=== PATIENT | female | born 1935 | race Caucasian/White ===

== ENCOUNTER 2017-05-12 08:08 | Inpatient (IN) | payer MEDICARE, BC ==
[2017-05-12] MEDS ORDERED: Neostigmine Methylsulfate 1 MG/ML 5 ML Syringe ONE (08:17)
[2017-05-12] MEDS ORDERED: Propofol 200 MG/20 ML SDV ONE (08:17)
[2017-05-12] MEDS ORDERED: Dexamethasone 4 MG/ML SDV ONE (08:17)
[2017-05-12] MEDS ORDERED: Succinylcholine 200 MG/10 ML MDV ONE (08:17)
[2017-05-12] MEDS ORDERED: Ondansetron 4 MG/2 ML SDV ONE (08:17)
[2017-05-12] MEDS ORDERED: Glycopyrrolate 0.2 MG/ML 5 ML MDV ONE (08:17)
[2017-05-12] MEDS ORDERED: Rocuronium 50 MG/5 ML Vial ONE (08:17)
[2017-05-12] MEDS ORDERED: Scopolamine 1.5 MG Transdermal Patch TRDERM SCH (08:45)
[2017-05-12] MEDS ORDERED: Gabapentin 300 MG Cap PO ONE (08:45)
[2017-05-12] MEDS ORDERED: Povidone-Iodine 10% Soln 118.25 ML Bottle ONE (08:53)
[2017-05-12] MEDS ORDERED: Thrombin (Bovine) 5,000 Unit Kit ONE (08:53)
[2017-05-12] MEDS ORDERED: Lactated Ringers 1,000 ML IV SCH (09:15)
[2017-05-12] MEDS ORDERED: ceFAZolin 1 GM in Premix Bag 1 BAG IV ONE (10:15)
[2017-05-12] MEDS ORDERED: Ropivacaine 49.25 ML, Ketorolac 30 MG, EPINEPHrine 0.5 MG, cloNIDine 80 MCG, Sodium Chl... INJECT ONE ×5 (10:30)
[2017-05-12] MEDS ORDERED: Ketamine 500 MG/5 ML MDV IV SCH (10:30)
[2017-05-12] MEDS: Tranexamic Acid 650 MG in Sodium Chloride 0.9% 50 ML IV SCH ×3 (10:38→17:33)
[2017-05-12] MEDS ORDERED: Gelatin Sponge,Absorbable Pwd 1 GM Pkt ONE (11:00)
[2017-05-12] MEDS ORDERED: Magnesium Hydroxide 400 MG/5 ML Susp 30 ML Cup PO PRN (12:22)
[2017-05-12] MEDS ORDERED: Zolpidem 5 MG Tab PO PRN (12:22)
[2017-05-12] MEDS ORDERED: Aluminum Hydroxide/Magnesium Hydroxide/Simethicone Susp 30 ML Cup PO PRN (12:22)
[2017-05-12] MEDS ORDERED: Naloxone 0.4 MG/ML SDV IVPUSH PRN (12:22)
[2017-05-12] MEDS ORDERED: Sodium Chloride 0.9% 10 ML Syringe FLUSH PRN (12:22)
[2017-05-12] MEDS ORDERED: Ondansetron 4 MG/2 ML SDV IVPUSH PRN (12:22)
[2017-05-12] MEDS ORDERED: HYDROmorphone 1 MG/ML Syringe IVPUSH PRN (12:22)
[2017-05-12] MEDS ORDERED: ceFAZolin 1 GM in Sodium Chloride 0.9% 50 ML IV SCH ×2 (12:30→13:45)
[2017-05-12] MEDS: VERIFY SCOPOLAMINE PATCH TOP SCH (13:20)
[2017-05-12] MEDS ORDERED: Lactated Ringers 500 ML IV SCH ×2 (16:15→18:30)
--- NOTE | 2017-05-12 17:19 | PCM.CONS ---
H&P History of Present Illness - General Date of Service: 05/12/17 Admit Problem/Dx: Source of Information: Patient, RN Notes Reviewed History Limitations: Reports: Altered Mental Status (Lethargic following anesthesia with underlying dementia) - History of Present Illness Initial Comments - Free Text/Narative: Ms. Bauer is an 81-year-old woman who is status post lumbar spinal surgery done earlier today by Dr. Tim Zapata. I'm asked to see her at this time for a hospitalist consult and assistance with medical management during the postoperative period. She has been somewhat lethargic since surgery likely as a result of the anesthesia. She also has a history of underlying dementia. She did experience some nausea vomiting immediately following surgery but this has resolved since she received IV Zofran. Vital signs have been stable and she has been afebrile thus far. Currently denies any symptoms of chest pain or pressure or shortness of breath. She reports that her pain control is good on current therapy. - Related Data Allergies/Adverse Reactions: Allergies Allergy/AdvReac Type Severity Reaction Status Date / Time No Known Allergies Allergy Verified 05/12/17 09:05 Home Medications: Home Meds Amiodarone HCl [Amiodarone HCl] 200 mg PO DAILY 04/02/17 [History] Past Medical History HEENT History: Reports: Cataract, Impaired Vision Cardiovascular History: Reports: Arrhythmia, High Cholesterol, VT, Pacemaker, Stents Respiratory History: Reports: COPD, Sleep Apnea, Other (See Below) Other Respiratory History: uses home O2 at night Gastrointestinal History: Reports: Cholelithiasis Genitourinary History: Reports: Urinary Incontinence 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: Musculoskeletal History: Reports: Back Pain, Chronic, Other (See Below) Other Musculoskeletal History: left knee pain , unilateral primary osteoarthritis, spinal stenosis lumbar region Endocrine/Metabolic History: Reports: Other (See Below) Other Endocrine/Metabolic History: hypoglycemia - Past Surgical History HEENT Surgical History: Reports: Cataract Surgery Cardiovascular Surgical History: Reports: Coronary Artery Stent GI Surgical History: Reports: Appendectomy, Cholecystectomy, Colonoscopy Female Surgical History: Reports: Hysterectomy, Salpingo-Oophorectomy Neurological Surgical History: Reports: Other (See Below) Other Neurological Surgeries/Procedures: back surgery x 2 Social & Family History - Tobacco Use Smoking Status *Q: Former Smoker Years of Tobacco use: 60 Used Tobacco, but Quit: Yes Month Tobacco Last Used: January Tobacco Use Comment: quit smoking in January 2017 - Caffeine Use Caffeine Use: Reports: Coffee - Recreational Drug Use Recreational Drug Use: No H&P Review of Systems - Review of Systems: Review Of Systems: Unable To Obtain General: Reports: ROS unobtainable (Dementia) Exam - Exam Exam: See Below - Vital Signs Vital Signs: Last Vital Signs Temp 96.3 F 05/12/17 15:30 Pulse 67 05/12/17 16:00 Resp 16 05/12/17 16:00 BP 117/66 05/12/17 16:00 Pulse Ox 100 05/12/17 16:00 Weight: 164 lb 11.2 oz - Exam Quality Assessment: DVT Prophylaxis General: Sedated, Lethargic Neck: Supple, Trachea Midline, +2 Carotid Pulse wo Bruit Lungs: Clear to Auscultation, Normal Respiratory Effort Cardiovascular: Regular Rate, Regular Rhythm, Normal S1, Normal S2. No: Systolic Murmur, Diastolic Murmur GI/Abdominal Exam: Normal Bowel Sounds, Soft, Non-Tender, No Distention Extremities: Normal Inspection, No Pedal Edema Skin: Warm, Dry, Intact - Patient Data Lab Results Last 24 hrs: Laboratory Results - last 24 hr 05/12/17 Range/Units 08:34 Blood Type O POSITIVE Gel Antibody Screen Negative Consult PN Assessment/Plan Procedures: Procedures CARDIOVASCULAR STRESS TEST (02/28/14) CHEST X-RAY 2VW FRONTAL&LATL (11/27/16) CONTRAST X-RAY OF KNEE JOINT (04/02/17) CT ABD & PELV 1/> REGNS (07/11/15) CT HEAD/BRAIN W/O DYE (10/17/14) CT LOWER EXTREMITY W/O DYE (04/02/17) CT LUMBAR SPINE W/O DYE (04/23/17) HT MUSCLE IMAGE SPECT MULT (02/28/14) MYELOGRAPHY L-S SPINE (04/23/17) NJX INTERLAMINAR LMBR/SAC (05/05/17) X-RAY EXAM KNEE 4 OR MORE (04/12/17) X-RAY EXAM L-2 SPINE 4/>VWS (04/12/17) X-RAY EXAM OF PELVIS (04/12/17) Problem List Initiated/Reviewed/Updated: Yes My Orders Last 24 Hours: My Active Orders 05/12/17 16:15 Lactated Ringers [Ringers, Lactated] 500 ml IV ASDIRECTED 05/12/17 21:00 Melatonin 9 mg PO BEDTIME 05/13/17 09:00 Amiodarone [Cordarone] 200 mg PO DAILY Plan: ASSESSMENT AND RECOMMENDATIONS STATUS POST LUMBAR SPINAL SURGERY -Postoperative cares per Dr. Zapata CORONARY ARTERY DISEASE-stable, denies symptoms of chest pain or pressure PAROXYSMAL ATRIAL FIBRILLATION -Continue current therapy with amiodarone DEMENTIA -Melatonin 9 mg by mouth daily at bedtime Requesting Provider: LUDWIG Date Consult Requested: 05/12/17 Reason for Consult: Postoperative medical management Patient History Reviewed: Yes
[2017-05-12] MEDS: ceFAZolin 1 GM in Premix Bag 1 BAG IV SCH (17:33)
[2017-05-12] MEDS: Melatonin 3 MG Tab PO SCH (21:28)
[2017-05-13] MEDS: ceFAZolin 1 GM in Premix Bag 1 BAG IV SCH ×2 (02:36→10:17)
[2017-05-13] MEDS: Acetaminophen/oxyCODONE 325-5 MG Tab PO PRN ×3 (07:53→21:16)
--- NOTE | 2017-05-13 08:30 | OR ---
DATE OF PROCEDURE: 05/12/2017 PREOPERATIVE DIAGNOSIS: Lumbar stenosis L2-3, L3-4, and L4-5. POSTOPERATIVE DIAGNOSIS: Lumbar stenosis L2-3, L3-4, and L4-5. PROCEDURE: Lumbar laminectomy L2-3, L3-4, and L4-5. GAS PLANT SPECIALIST: Kisha Skaggs, FUR DRESSING SUPERVISOR FLUID: Lactated Ringer solution. ESTIMATED BLOOD LOSS: 200 mL. COMPLICATIONS: None. SPECIMEN: None. DISCHARGE DISPOSITION: Stable to PACU. INDICATIONS FOR PROCEDURE: The patient is well known to me. She initially came in for some leg, knee pain, and then knee weakness and feeling like her knee was giving out on her. We really did not see a lot of arthritic changes in the left knee. The patient has a defibrillator, so we performed a CT myelogram, which showed the above-mentioned diagnosis. She had failed epidural steroid injection, was getting to be continually weaker and falling, where she had been very mobile previous to this. Risks and benefits of the procedure were explained to the patient. Informed consent was obtained. DETAILS OF PROCEDURE: The patient was seen preoperatively by myself and the Anesthesia Staff in the preoperative holding area where the operative site was marked. She was brought to the operative suite by the Anesthesia staff where general anesthesia was administered. She was placed into a Armen table. All extremities were found to be well padded. The eyes were not under any pressure. The patient's back was then prepped and draped in a sterile manner. Time-out was called identifying the correct patient, correct procedure, the correct site, and antibiotics had been given within appropriate period of time. The sterilely draped fluoroscopy unit was then brought into lateral position, and the L2 through L5 pedicles were marked on the lateral view. We then did a midline incision down to the fascia. Bleeding was controlled in the case with Bovie electrocautery, bipolar electrocautery, as well as a 5.0 Aquamantys unit. Cerebellars were used for initial retraction, Silva elevator and an ENT tip Bovie were then used for dissection over the spinous processes of L2 down to the L5 spinous process, carried down over the respective lamina out to the lateral margin of the facets. Any extraneous tissue was then cleared. I then brought in fluoroscopy to verify my levels. We then removed the inferior spinous process of L2 and the superior spinous process of L5 and then the remaining spinous processes of L3 and L4. I used a rongeur to remove as much of the lamina as possible and then used 3, 4, and 5 Kerrisons to remove the lamina over L3 and L4, the inferior aspect of L2, and superior aspect of L5. This was carried out to the level of the pedicles. The ligamentum flavum was carefully removed while protecting the dura and durotomy was not encountered during the procedure. Bleeding on the epidural space was controlled with Floseal and then tamped gently with a Ray-Riley. I did take my final films confirming with a long ball and a Pigeon #4 that my exposure was adequate and decompression was adequate. We then copiously irrigated with 2 L Betadine infused irrigation and placed a Floseal at the epidural space again, and then tamped it clear with a Ray-Riley and then placed Gelfoam powder in the wound. We then closed the deep fascia with #2 Vicryl in an interlocking fashion, #2 Vicryl in a running fashion, followed by deep subcu 0 sutures, followed by superficial 2-0 subcu sutures, followed by #2 Prolene mattress sutures, as well as 2-0 nylon mattress sutures, followed by a sterile dressing. The patient was then flipped into her hospital bed and then allowed to awaken from general anesthesia and taken to the PACU in stable condition. Gael Zapata DO /[id number]
[2017-05-13] MEDS: Amiodarone 200 MG Tab PO SCH (08:31)
[2017-05-13] MEDS: VERIFY SCOPOLAMINE PATCH TOP SCH (08:32)
--- NOTE | 2017-05-13 11:47 | PCM.CONSN ---
- General Info Date of Service: 05/13/17 Functional Status: Reports: Pain Controlled, Tolerating Diet - Review of Systems General: Reports: Weakness. Denies: Fever, Chills Cardiovascular: Reports: No Symptoms Gastrointestinal: Reports: No Symptoms Genitourinary: Reports: No Symptoms Musculoskeletal: Reports: Back Pain Systems Review Comment:: Ms. aBuer has been fairly stable since surgery yesterday, urine output has been somewhat low during the night but improved thus far today. Vital signs have been good and she has remained afebrile. - Patient Data Vitals - Most Recent: Last Vital Signs Temp 97.1 F 05/13/17 07:23 Pulse 67 05/13/17 07:23 Resp 16 05/13/17 07:23 BP 109/58 L 05/13/17 07:23 Pulse Ox 93 L 05/13/17 07:58 Weight - Most Recent: 164 lb 11.212 oz I&O - Last 24 Hours: Intake & Output 05/12/17 05/13/17 05/13/17 22:59 06:59 14:59 Intake Total 813 750 550 Output Total 175 300 Balance 638 750 250 Lab Results Last 24 Hours: Laboratory Results - last 24 hr 05/13/17 05/13/17 Range/Units 05:15 05:15 WBC 16.7 H (4.5-11.0) K/uL RBC 3.88 (3.30-5.50) M/uL Hgb 12.2 D (12.0-15.0) g/dL Hct 36.4 (36.0-48.0) % MCV 94 (80-98) fL MCH 31 (27-31) pg MCHC 34 (32-36) % Plt Count 208 (150-400) K/uL Neut % (Auto) 73 H (36-66) % Lymph % (Auto) 12 L (24-44) % [place] % (Auto) 15 H (2-6) % Eos % (Auto) 0 L (2-4) % Baso % (Auto) 0 (0-1) % Sodium 142 (140-148) mmol/L Potassium 4.9 (3.6-5.2) mmol/L Chloride 108 (100-108) mmol/L Carbon Dioxide 29 (21-32) mmol/L Anion Gap 5.3 (5.0-14.0) mmol/L BUN 21 H (7-18) mg/dL Creatinine 1.1 H (0.6-1.0) mg/dL Est Cr Clr Drug Dosing 36.09 mL/min Estimated GFR (MDRD) 48 L (>60) Glucose 111 H (74-106) mg/dL Calcium 8.1 L (8.5-10.1) mg/dL Med Orders - Current: Current Medications Al Hydroxide/Mg Hydroxide (Mag-Al Plus) 30 ml PO Q4H PRN PRN Reason: Indigestion Amiodarone HCl (Cordarone) 200 mg PO DAILY [facility] Last Admin: 05/13/17 08:31 Dose: 200 mg Diazepam (Valium) 5 mg IVPUSH Q6H PRN PRN Reason: Spasms Hydromorphone HCl (Dilaudid) 1 mg IVPUSH Q2H PRN PRN Reason: Pain Magnesium Hydroxide (Milk Of Magnesia) 30 ml PO BID PRN PRN Reason: Constipation Melatonin (Melatonin) 9 mg PO BEDTIME [facility] Last Admin: 05/12/17 21:28 Dose: 9 mg Verify Scopolamine (Patch) 0 each TOP DAILY [facility] Last Admin: 05/13/17 08:32 Dose: Not Given Ondansetron HCl (Zofran) 8 mg IVPUSH Q4H PRN PRN Reason: Nausea/Vomiting Last Admin: 05/12/17 13:19 Dose: 8 mg Oxycodone/Acetaminophen (Percocet 325-5 Mg) 2 tab PO Q4H PRN PRN Reason: Pain Last Admin: 05/13/17 07:53 Dose: 2 tab Scopolamine (Transderm-Scop) 1.5 mg TRDERM Q72H [facility] Stop: 05/15/17 06:45 Last Admin: 05/12/17 09:09 Dose: 1.5 mg Senna (Senna) 8.6 mg PO BID PRN PRN Reason: Constipation Sodium Chloride (Saline Flush) 10 ml FLUSH ASDIRECTED PRN PRN Reason: Keep Vein Open Zolpidem Tartrate (Ambien) 5 mg PO BEDTIME PRN PRN Reason: Sleep Discontinued Medications Ropivacaine 49.25 ml/Ketorolac Tromethamine 30 mg/Epinephrine HCl 0.5 mg/ Clonidine HCl 80 mcg/ Sodium Chloride 48.45 ml 0 ml INJECT ONETIME ONE Stop: 05/12/17 10:31 Last Admin: 05/12/17 10:45 Dose: 100 ml Dexamethasone (Dexamethasone) Confirm Administered Dose 4 mg .ROUTE .STK-MED ONE Stop: 05/12/17 08:18 Fentanyl Citrate (Fentanyl) Confirm Administered Dose 500 mcg .ROUTE .STK-MED ONE Stop: 05/12/17 08:18 Gabapentin (Neurontin) 300 mg PO ONETIME ONE Stop: 05/12/17 08:46 Last Admin: 05/12/17 09:09 Dose: 300 mg Gelatin (Gelfoam) 1 gm .ROUTE .STK-MED ONE Stop: 05/12/17 11:01 Glycopyrrolate (Robinul) Confirm Administered Dose 1 mg .ROUTE .STK-MED ONE Stop: 05/12/17 08:18 Lactated Ringer's (Ringers, Lactated) 1,000 mls @ 0 mls/hr IV ASDIRECTED [facility] PRN Reason: KVO Last Infusion: 05/12/17 16:10 Dose: Infused Cefazolin Sodium/Dextrose 1 gm (/ Premix) 50 mls @ 100 mls/hr IV ONETIME ONE Stop: 05/12/17 10:44 Last Admin: 05/12/17 10:15 Dose: 100 mls/hr Tranexamic Acid 650 mg/ Sodium (Chloride) 56.5 mls @ 226 mls/hr IV Q3H [facility] Stop: 05/12/17 13:44 Last Admin: 05/12/17 17:33 Dose: Not Given Cefazolin Sodium 1 gm/ Sodium (Chloride) 50 mls @ 100 mls/hr IV Q8H [facility] Stop: 05/13/17 04:59 Last Admin: 05/13/17 07:53 Dose: Not Given Cefazolin Sodium/Dextrose 1 gm (/ Premix) 50 mls @ 100 mls/hr IV Q8H [facility] Stop: 05/13/17 10:29 Last Admin: 05/13/17 10:17 Dose: 100 mls/hr Lactated Ringer's (Ringers, Lactated) 500 mls @ 250 mls/hr IV ASDIRECTED [facility] Last Admin: 05/12/17 16:11 Dose: 250 mls/hr Lactated Ringer's (Ringers, Lactated) 500 mls @ 250 mls/hr IV ASDIRECTED [facility] Stop: 05/12/17 20:29 Last Admin: 05/12/17 19:00 Dose: 250 mls/hr Ketamine HCl (Ketalar) 25 mg IV ASDIRECTED [facility] Naloxone HCl (Narcan) 0.2 mg IVPUSH ONETIME PRN PRN Reason: Oversedation Stop: 05/12/17 12:23 Neostigmine Methylsulfate (Neostigmine) Confirm Administered Dose 5 mg .ROUTE .STK-MED ONE Stop: 05/12/17 08:18 Ondansetron HCl (Zofran) Confirm Administered Dose 4 mg .ROUTE .STK-MED ONE Stop: 05/12/17 08:18 Povidone Iodine (Betadine 10% Soln) Confirm Administered Dose 1 ml .ROUTE .STK- MED ONE Stop: 05/12/17 08:54 Last Admin: 05/12/17 11:47 Dose: 30 ml Propofol (Diprivan 20 Ml) Confirm Administered Dose 200 mg .ROUTE .STK-MED ONE Stop: 05/12/17 08:18 Rocuronium [place] (Zemuron) Confirm Administered Dose 50 mg .ROUTE .STK-MED ONE Stop: 05/12/17 08:18 Succinylcholine Chloride (Quelicin) Confirm Administered Dose 200 mg .ROUTE .STK -MED ONE Stop: 05/12/17 08:18 Thrombin (Thrombin-Jmi) Confirm Administered Dose 15,000 unit .ROUTE .STK-MED ONE Stop: 05/12/17 08:54 Last Admin: 05/12/17 11:47 Dose: 5,000 unit - Exam General: Alert, Cooperative, No Acute Distress Lungs: Clear to Auscultation, Normal Respiratory Effort Cardiovascular: Regular Rate, Regular Rhythm, No Murmurs GI/Abdominal Exam: Normal Bowel Sounds, Soft, Non-Tender, No Distention Extremities: Normal Inspection, No Pedal Edema Skin: Warm, Dry, Intact Consult PN Assessment/Plan Procedures: Procedures CARDIOVASCULAR STRESS TEST (02/28/14) CHEST X-RAY 2VW FRONTAL&LATL (11/27/16) COMPLETE CBC AUTOMATED (05/10/17) COMPREHEN METABOLIC PANEL (05/10/17) CONTRAST X-RAY OF KNEE JOINT (04/02/17) CT ABD & PELV 1/> REGNS (07/11/15) CT HEAD/BRAIN W/O DYE (10/17/14) CT LOWER EXTREMITY W/O DYE (04/02/17) CT LUMBAR SPINE W/O DYE (04/23/17) ELECTROCARDIOGRAM TRACING (05/10/17) HT MUSCLE IMAGE SPECT MULT (02/28/14) MYELOGRAPHY L-S SPINE (04/23/17) NJX INTERLAMINAR LMBR/SAC (05/05/17) ROUTINE VENIPUNCTURE (05/10/17) URINALYSIS AUTO W/O SCOPE (05/10/17) X-RAY EXAM KNEE 4 OR MORE (05/10/17) X-RAY EXAM L-2 SPINE 4/>VWS (04/12/17) X-RAY EXAM OF PELVIS (04/12/17) Problem List Initiated/Reviewed/Updated: Yes My Orders Last 24 Hours: My Active Orders 05/12/17 21:00 Melatonin 9 mg PO BEDTIME 05/13/17 09:00 Amiodarone [Cordarone] 200 mg PO DAILY Plan: ASSESSMENT AND RECOMMENDATIONS STATUS POST LUMBAR SPINAL SURGERY-stable and doing well following surgery yesterday -Postoperative cares per Dr. Zapata CORONARY ARTERY DISEASE-stable, denies symptoms of chest pain or pressure PAROXYSMAL ATRIAL FIBRILLATION -Continue current therapy with amiodarone DEMENTIA-no evidence thus far of significant delirium or agitation -Melatonin 9 mg by mouth daily at bedtime
[2017-05-13] MEDS: Melatonin 3 MG Tab PO SCH (21:07)
[2017-05-13] MEDS ORDERED: Acetaminophen/oxyCODONE 325-5 MG Tab ONE (21:15)
--- NOTE | 2017-05-14 07:54 | PCM.PN ---
- General Info Date of Service: 05/13/17 Functional Status: Reports: Pain Controlled, Tolerating Diet, Ambulating, Urinating - Patient Data Vitals - Most Recent: Last Vital Signs Temp 36.8 C 05/14/17 07:40 Pulse 58 L 05/14/17 07:40 Resp 16 05/14/17 07:40 BP 118/59 L 05/14/17 07:40 Pulse Ox 93 L 05/14/17 07:40 Weight - Most Recent: 164 lb 11.212 oz I&O - Last 24 Hours: Intake & Output 05/13/17 05/14/17 05/14/17 22:59 06:59 14:59 Intake Total 3200 Output Total 1250 400 Balance 1950 -400 Lab Results Last 24 Hours: Laboratory Results - last 24 hr 05/14/17 05/14/17 Range/Units 04:42 04:42 WBC 12.9 H (4.5-11.0) K/uL RBC 3.83 (3.30-5.50) M/uL Hgb 12.1 (12.0-15.0) g/dL Hct 36.2 (36.0-48.0) % MCV 95 (80-98) fL MCH 32 H (27-31) pg MCHC 33 (32-36) % Plt Count 194 (150-400) K/uL Neut % (Auto) 61 (36-66) % Lymph % (Auto) 20 L (24-44) % [place] % (Auto) 17 H (2-6) % Eos % (Auto) 1 L (2-4) % Baso % (Auto) 0 (0-1) % Sodium 140 (140-148) mmol/L Potassium 4.2 (3.6-5.2) mmol/L Chloride 106 (100-108) mmol/L Carbon Dioxide 29 (21-32) mmol/L Anion Gap 5.3 (5.0-14.0) mmol/L BUN 21 H (7-18) mg/dL Creatinine 1.1 H (0.6-1.0) mg/dL Est Cr Clr Drug Dosing 36.03 mL/min Estimated GFR (MDRD) 48 L (>60) Glucose 108 H (74-106) mg/dL Calcium 7.9 L (8.5-10.1) mg/dL Med Orders - Current: Current Medications Al Hydroxide/Mg Hydroxide (Mag-Al Plus) 30 ml PO Q4H PRN PRN Reason: Indigestion Amiodarone HCl (Cordarone) 200 mg PO DAILY [facility] Last Admin: 05/13/17 08:31 Dose: 200 mg Diazepam (Valium) 5 mg IVPUSH Q6H PRN PRN Reason: Spasms Hydromorphone HCl (Dilaudid) 1 mg IVPUSH Q2H PRN PRN Reason: Pain Magnesium Hydroxide (Milk Of Magnesia) 30 ml PO BID PRN PRN Reason: Constipation Melatonin (Melatonin) 9 mg PO BEDTIME [facility] Last Admin: 05/13/17 21:07 Dose: 9 mg Verify Scopolamine (Patch) 0 each TOP DAILY [facility] Last Admin: 05/13/17 08:32 Dose: Not Given Ondansetron HCl (Zofran) 8 mg IVPUSH Q4H PRN PRN Reason: Nausea/Vomiting Last Admin: 05/12/17 13:19 Dose: 8 mg Oxycodone/Acetaminophen (Percocet 325-5 Mg) 2 tab PO Q4H PRN PRN Reason: Pain Last Admin: 05/13/17 21:16 Dose: 2 tab Scopolamine (Transderm-Scop) 1.5 mg TRDERM Q72H [facility] Stop: 05/15/17 06:45 Last Admin: 05/12/17 09:09 Dose: 1.5 mg Senna (Senna) 8.6 mg PO BID PRN PRN Reason: Constipation Sodium Chloride (Saline Flush) 10 ml FLUSH ASDIRECTED PRN PRN Reason: Keep Vein Open Zolpidem Tartrate (Ambien) 5 mg PO BEDTIME PRN PRN Reason: Sleep Discontinued Medications Ropivacaine 49.25 ml/Ketorolac Tromethamine 30 mg/Epinephrine HCl 0.5 mg/ Clonidine HCl 80 mcg/ Sodium Chloride 48.45 ml 0 ml INJECT ONETIME ONE Stop: 05/12/17 10:31 Last Admin: 05/12/17 10:45 Dose: 100 ml Dexamethasone (Dexamethasone) Confirm Administered Dose 4 mg .ROUTE .STK-MED ONE Stop: 05/12/17 08:18 Fentanyl Citrate (Fentanyl) Confirm Administered Dose 500 mcg .ROUTE .STK-MED ONE Stop: 05/12/17 08:18 Gabapentin (Neurontin) 300 mg PO ONETIME ONE Stop: 08/09/17 08:46 Last Admin: 05/12/17 09:09 Dose: 300 mg Gelatin (Gelfoam) 1 gm .ROUTE .STK-MED ONE Stop: 05/12/17 11:01 Glycopyrrolate (Robinul) Confirm Administered Dose 1 mg .ROUTE .STK-MED ONE Stop: 05/12/17 08:18 Lactated Ringer's (Ringers, Lactated) 1,000 mls @ 0 mls/hr IV ASDIRECTED [facility] PRN Reason: KVO Last Infusion: 05/12/17 16:10 Dose: Infused Cefazolin Sodium/Dextrose 1 gm (/ Premix) 50 mls @ 100 mls/hr IV ONETIME ONE Stop: 05/12/17 10:44 Last Admin: 05/12/17 10:15 Dose: 100 mls/hr Tranexamic Acid 650 mg/ Sodium (Chloride) 56.5 mls @ 226 mls/hr IV Q3H [facility] Stop: 05/12/17 13:44 Last Admin: 05/12/17 17:33 Dose: Not Given Cefazolin Sodium 1 gm/ Sodium (Chloride) 50 mls @ 100 mls/hr IV Q8H [facility] Stop: 05/13/17 04:59 Last Admin: 05/13/17 07:53 Dose: Not Given Cefazolin Sodium/Dextrose 1 gm (/ Premix) 50 mls @ 100 mls/hr IV Q8H [facility] Stop: 05/13/17 10:29 Last Admin: 05/13/17 10:17 Dose: 100 mls/hr Lactated Ringer's (Ringers, Lactated) 500 mls @ 250 mls/hr IV ASDIRECTED [facility] Last Admin: 05/12/17 16:11 Dose: 250 mls/hr Lactated Ringer's (Ringers, Lactated) 500 mls @ 250 mls/hr IV ASDIRECTED [facility] Stop: 05/12/17 20:29 Last Admin: 05/12/17 19:00 Dose: 250 mls/hr Ketamine HCl (Ketalar) 25 mg IV ASDIRECTED [facility] Naloxone HCl (Narcan) 0.2 mg IVPUSH ONETIME PRN PRN Reason: Oversedation Stop: 05/12/17 12:23 Neostigmine Methylsulfate (Neostigmine) Confirm Administered Dose 5 mg .ROUTE .STK-MED ONE Stop: 05/12/17 08:18 Ondansetron HCl (Zofran) Confirm Administered Dose 4 mg .ROUTE .STK-MED ONE Stop: 05/12/17 08:18 Oxycodone/Acetaminophen (Percocet 325-5 Mg) Confirm Administered Dose 2 tab .ROUTE .STK-MED ONE Stop: 05/13/17 21:16 Povidone Iodine (Betadine 10% Soln) Confirm Administered Dose 1 ml .ROUTE .STK- MED ONE Stop: 05/12/17 08:54 Last Admin: 05/12/17 11:47 Dose: 30 ml Propofol (Diprivan 20 Ml) Confirm Administered Dose 200 mg .ROUTE .STK-MED ONE Stop: 05/12/17 08:18 Rocuronium [place] (Zemuron) Confirm Administered Dose 50 mg .ROUTE .STK-MED ONE Stop: 05/12/17 08:18 Succinylcholine Chloride (Quelicin) Confirm Administered Dose 200 mg .ROUTE .STK -MED ONE Stop: 05/12/17 08:18 Thrombin (Thrombin-Jmi) Confirm Administered Dose 15,000 unit .ROUTE .STK-MED ONE Stop: 05/12/17 08:54 Last Admin: 05/12/17 11:47 Dose: 5,000 unit - Exam General: Alert, Oriented Back Exam: Normal Inspection Extremities: Normal Inspection Skin: Warm, Dry, Intact Wound/Incisions: Healing Well, Dressing Dry and Intact, No Drainage Neurological: No New Focal Deficit, Normal Gait, Strength Equal Bilateral, Reflexes Equal Bilateral - Problem List Review Problem List Initiated/Reviewed/Updated: Yes - My Orders Last 24 Hours: My Active Orders 05/15/17 05:15 BASIC METABOLIC PANEL,BMP [CHEM] DAILY CBC WITH AUTO DIFF [HEME] DAILY 05/16/17 05:15 BASIC METABOLIC PANEL,BMP [CHEM] DAILY CBC WITH AUTO DIFF [HEME] DAILY - Plan Plan:: Jessie is a 81 year old female who is status pod 1 of a lumbar laminectomy. She is doing well. She has refused PT until today. She status her pain is under control. Plan: At this time I want her bailey to be removed. She is to ambulate at least 3 times today. I changed her dressing. She is to continue with PT/OT and pain managment.
[2017-05-14] MEDS: Acetaminophen/oxyCODONE 325-5 MG Tab PO PRN ×3 (08:11→21:15)
[2017-05-14] MEDS: Amiodarone 200 MG Tab PO SCH (10:09)
[2017-05-14] MEDS: VERIFY SCOPOLAMINE PATCH TOP SCH (10:09)
[2017-05-14] MEDS: Sennosides 8.6 MG Tab PO PRN (10:13)
[2017-05-14] MEDS: Melatonin 3 MG Tab PO SCH (21:14)
[2017-05-15 07:15] VITALS: BP 139/68
[2017-05-15] MEDS: Acetaminophen/oxyCODONE 325-5 MG Tab PO PRN (07:23)
[2017-05-15] MEDS: Sennosides 8.6 MG Tab PO PRN (07:23)
--- NOTE | 2017-05-15 08:00 | PCM.DCSUM1 ---
Discharge Summary - Hospital Course Free Text/Narrative:: Jessie is a pleasant 81 year old female who is status pod 3 of a lumbar laminectomy. She is doing well. Pain is under control with oral pain medication. She is slightly unsteady with transfers. Dressing is clean, dry, and intact. - Discharge Data Discharge Date: 05/15/17 Discharge Disposition: DC/Tfer to SNF 03 Condition: Good - Patient Summary/Data Consults: Consultations 05/12/17 12:22 Consult to Physician [CONS] Routine Consulting Provider: Teddy Mccord Call Completed to Consulting Physician: Yes 05/12/17 12:28 OT Evaluation and Treatment [CONS] Routine Please Evaluate and Treat. OT Reason for Consult: Strengthening This query below is only for informational purposes and is not editable. PT Evaluation and Treatment [CONS] Routine Please Evaluate and Treat. PT Reason for Consult: Strengthening This query below is only for informational purposes and is not editable. - Patient Instructions Diet: Usual Diet as Tolerated Activity: Apply Ice, As Tolerated Driving: Do Not Drive Showering/Bathing: May Shower Wound/Incision Care: Keep Operative Site/Wound Site Clean and Dry, Change Dressing Daily, Do NOT Change Dressing Notify Provider of: Fever, Increased Pain, Swelling and Redness, Drainage, Nausea and/or Vomiting - Discharge Plan Prescriptions/Med Rec: Acetaminophen/oxyCODONE [Percocet 325-5 MG] 1 tab PO Q6HR PRN #90 tablet PRN Reason: Pain Home Medications: Home Meds Amiodarone HCl 200 mg PO DAILY 04/02/17 [History] Acetaminophen/oxyCODONE [Percocet 325-5 MG] 1 tab PO Q6HR PRN #90 tablet [Rx] Patient Handouts: Constipation, Adult, [id number], Lumbar Laminectomy and Anterior Cervical Fusion Referrals: Gael Zapata DO [Physician] - 05/27/17 10:15 am - Discharge Summary/Plan Comment DC Time >30 min.: Yes Discharge Summary/Plan Comment: Patient is to discharge to [facility] today. She is to follow up with us in 2 weeks. She is to have daily dressing changed after shower. Leave dressing on while showering and then remove after. - Patient Data Vitals - Most Recent: Last Vital Signs Temp 36.8 C 05/15/17 07:14 Pulse 56 L 05/15/17 07:14 Resp 18 05/15/17 07:14 BP 139/68 05/15/17 07:14 Pulse Ox 93 L 05/15/17 07:14 Weight - Most Recent: 164 lb 11.212 oz I&O - Last 24 hours: Intake & Output 05/14/17 05/15/17 05/15/17 22:59 06:59 14:59 Intake Total 240 Output Total 1950 450 Balance -1710 -450 Lab Results - Last 24 hrs: Laboratory Results - last 24 hr 05/15/17 05/15/17 Range/Units 05:04 05:04 WBC 11.2 H (4.5-11.0) K/uL RBC 3.93 (3.30-5.50) M/uL Hgb 12.3 (12.0-15.0) g/dL Hct 37.1 (36.0-48.0) % MCV 94 (80-98) fL MCH 31 (27-31) pg MCHC 33 (32-36) % Plt Count 188 (150-400) K/uL Neut % (Auto) 59 (36-66) % Lymph % (Auto) 21 L (24-44) % [place] % (Auto) 19 H (2-6) % Eos % (Auto) 2 (2-4) % Baso % (Auto) 0 (0-1) % Sodium 140 (140-148) mmol/L Potassium 4.1 (3.6-5.2) mmol/L Chloride 105 (100-108) mmol/L Carbon Dioxide 30 (21-32) mmol/L Anion Gap 4.6 L (5.0-14.0) mmol/L BUN 15 (7-18) mg/dL Creatinine 1.1 H (0.6-1.0) mg/dL Est Cr Clr Drug Dosing 36.03 mL/min Estimated GFR (MDRD) 48 L (>60) Glucose 89 (74-106) mg/dL Calcium 8.1 L (8.5-10.1) mg/dL Med Orders - Current: Current Medications Al Hydroxide/Mg Hydroxide (Mag-Al Plus) 30 ml PO Q4H PRN PRN Reason: Indigestion Amiodarone HCl (Cordarone) 200 mg PO DAILY NOEMI Last Admin: 05/14/17 10:09 Dose: 200 mg Diazepam (Valium) 5 mg IVPUSH Q6H PRN PRN Reason: Spasms Hydromorphone HCl (Dilaudid) 1 mg IVPUSH Q2H PRN PRN Reason: Pain Magnesium Hydroxide (Milk Of Magnesia) 30 ml PO BID PRN PRN Reason: Constipation Last Admin: 05/15/17 07:23 Dose: 30 ml Melatonin (Melatonin) 9 mg PO BEDTIME NOEMI Last Admin: 05/14/17 21:14 Dose: 9 mg Verify Scopolamine (Patch) 0 each TOP DAILY NOEMI Last Admin: 05/14/17 10:09 Dose: Not Given Ondansetron HCl (Zofran) 8 mg IVPUSH Q4H PRN PRN Reason: Nausea/Vomiting Last Admin: 05/12/17 13:19 Dose: 8 mg Oxycodone/Acetaminophen (Percocet 325-5 Mg) 2 tab PO Q4H PRN PRN Reason: Pain Last Admin: 05/15/17 07:23 Dose: 2 tab Senna (Senna) 8.6 mg PO BID PRN PRN Reason: Constipation Last Admin: 05/15/17 07:23 Dose: 8.6 mg Sodium Chloride (Saline Flush) 10 ml FLUSH ASDIRECTED PRN PRN Reason: Keep Vein Open Zolpidem Tartrate (Ambien) 5 mg PO BEDTIME PRN PRN Reason: Sleep Discontinued Medications Ropivacaine 49.25 ml/Ketorolac Tromethamine 30 mg/Epinephrine HCl 0.5 mg/ Clonidine HCl 80 mcg/ Sodium Chloride 48.45 ml 0 ml INJECT ONETIME ONE Stop: 05/12/17 10:31 Last Admin: 05/12/17 10:45 Dose: 100 ml Dexamethasone (Dexamethasone) Confirm Administered Dose 4 mg .ROUTE .STK-MED ONE Stop: 05/12/17 08:18 Fentanyl Citrate (Fentanyl) Confirm Administered Dose 500 mcg .ROUTE .STK-MED ONE Stop: 05/12/17 08:18 Gabapentin (Neurontin) 300 mg PO ONETIME ONE Stop: 05/12/17 08:46 Last Admin: 05/12/17 09:09 Dose: 300 mg Gelatin (Gelfoam) 1 gm .ROUTE .STK-MED ONE Stop: 05/12/17 11:01 Glycopyrrolate (Robinul) Confirm Administered Dose 1 mg .ROUTE .STK-MED ONE Stop: 05/12/17 08:18 Lactated Ringer's (Ringers, Lactated) 1,000 mls @ 0 mls/hr IV ASDIRECTED [facility] PRN Reason: KVO Last Infusion: 05/12/17 16:10 Dose: Infused Cefazolin Sodium/Dextrose 1 gm (/ Premix) 50 mls @ 100 mls/hr IV ONETIME ONE Stop: 05/12/17 10:44 Last Admin: 05/12/17 10:15 Dose: 100 mls/hr Tranexamic Acid 650 mg/ Sodium (Chloride) 56.5 mls @ 226 mls/hr IV Q3H [facility] Stop: 05/12/17 13:44 Last Admin: 05/12/17 17:33 Dose: Not Given Cefazolin Sodium 1 gm/ Sodium (Chloride) 50 mls @ 100 mls/hr IV Q8H [facility] Stop: 05/13/17 04:59 Last Admin: 05/13/17 07:53 Dose: Not Given Cefazolin Sodium/Dextrose 1 gm (/ Premix) 50 mls @ 100 mls/hr IV Q8H [facility] Stop: 05/13/17 10:29 Last Admin: 05/13/17 10:17 Dose: 100 mls/hr Lactated Ringer's (Ringers, Lactated) 500 mls @ 250 mls/hr IV ASDIRECTED [facility] Last Admin: 05/12/17 16:11 Dose: 250 mls/hr Lactated Ringer's (Ringers, Lactated) 500 mls @ 250 mls/hr IV ASDIRECTED [facility] Stop: 05/12/17 20:29 Last Admin: 05/12/17 19:00 Dose: 250 mls/hr Ketamine HCl (Ketalar) 25 mg IV ASDIRECTED [facility] Naloxone HCl (Narcan) 0.2 mg IVPUSH ONETIME PRN PRN Reason: Oversedation Stop: 05/12/17 12:23 Neostigmine Methylsulfate (Neostigmine) Confirm Administered Dose 5 mg .ROUTE .STK-MED ONE Stop: 05/12/17 08:18 Ondansetron HCl (Zofran) Confirm Administered Dose 4 mg .ROUTE .STK-MED ONE Stop: 05/12/17 08:18 Oxycodone/Acetaminophen (Percocet 325-5 Mg) Confirm Administered Dose 2 tab .ROUTE .STK-MED ONE Stop: 05/13/17 21:16 Last Admin: 05/14/17 08:07 Dose: Not Given Povidone Iodine (Betadine 10% Soln) Confirm Administered Dose 1 ml .ROUTE .STK- MED ONE Stop: 05/12/17 08:54 Last Admin: 05/12/17 11:47 Dose: 30 ml Propofol (Diprivan 20 Ml) Confirm Administered Dose 200 mg .ROUTE .STK-MED ONE Stop: 05/12/17 08:18 Rocuronium [place] (Zemuron) Confirm Administered Dose 50 mg .ROUTE .STK-MED ONE Stop: 05/12/17 08:18 Scopolamine (Transderm-Scop) 1.5 mg TRDERM Q72H [facility] Stop: 05/15/17 06:45 Last Admin: 05/12/17 09:09 Dose: 1.5 mg Succinylcholine Chloride (Quelicin) Confirm Administered Dose 200 mg .ROUTE .STK -MED ONE Stop: 05/12/17 08:18 Thrombin (Thrombin-Jmi) Confirm Administered Dose 15,000 unit .ROUTE .STK-MED ONE Stop: 05/12/17 08:54 Last Admin: 05/12/17 11:47 Dose: 5,000 unit *Q Meaningful Use (DIS) - VTE *Q VTE Criteria *Q: - Stroke *Q Stroke Criteria *Q: - AMI *Q AMI Criteria *Q:
[2017-05-15] MEDS: Amiodarone 200 MG Tab PO SCH (09:19)
[2017-05-15] MEDS: VERIFY SCOPOLAMINE PATCH TOP SCH (09:19)
--- NOTE | 2017-06-28 10:38 | PCM.PN ---
- General Info Date of Service: 05/14/17 Admission Dx/Problem (Free Text): Patient is doing very well. She is status postop day 2 of a lumbar laminectomy. Patient continues to work on PT OT for strictly. Pain is under control with oral pain medication. Patient does need extra cues with ambulating. Functional Status: Reports: Pain Controlled, Tolerating Diet, Ambulating, Urinating - Patient Data Vitals - Most Recent: Last Vital Signs Temp 36.8 C 05/15/17 07:14 Pulse 56 L 05/15/17 07:14 Resp 18 05/15/17 07:14 BP 139/68 05/15/17 07:14 Pulse Ox 93 L 05/15/17 07:14 Weight - Most Recent: 164 lb 11.212 oz Med Orders - Current: Current Medications Discontinued Medications Al Hydroxide/Mg Hydroxide (Mag-Al Plus) 30 ml PO Q4H PRN PRN Reason: Indigestion Amiodarone HCl (Cordarone) 200 mg PO DAILY NOEMI Last Admin: 05/15/17 09:19 Dose: 200 mg Ropivacaine 49.25 ml/Ketorolac Tromethamine 30 mg/Epinephrine HCl 0.5 mg/ Clonidine HCl 80 mcg/ Sodium Chloride 48.45 ml 0 ml INJECT ONETIME ONE Stop: 05/12/17 10:31 Last Admin: 05/12/17 10:45 Dose: 100 ml Dexamethasone (Dexamethasone) Confirm Administered Dose 4 mg .ROUTE .STK-MED ONE Stop: 05/12/17 08:18 Diazepam (Valium) 5 mg IVPUSH Q6H PRN PRN Reason: Spasms Fentanyl Citrate (Fentanyl) Confirm Administered Dose 500 mcg .ROUTE .STK-MED ONE Stop: 05/12/17 08:18 Gabapentin (Neurontin) 300 mg PO ONETIME ONE Stop: 05/12/17 08:46 Last Admin: 05/12/17 09:09 Dose: 300 mg Gelatin (Gelfoam) 1 gm .ROUTE .STK-MED ONE Stop: 05/12/17 11:01 Glycopyrrolate (Robinul) Confirm Administered Dose 1 mg .ROUTE .STK-MED ONE Stop: 05/12/17 08:18 Hydromorphone HCl (Dilaudid) 1 mg IVPUSH Q2H PRN PRN Reason: Pain Lactated Ringer's (Ringers, Lactated) 1,000 mls @ 0 mls/hr IV ASDIRECTED [facility] PRN Reason: KVO Last Infusion: 05/12/17 16:10 Dose: Infused Cefazolin Sodium/Dextrose 1 gm (/ Premix) 50 mls @ 100 mls/hr IV ONETIME ONE Stop: 05/12/17 10:44 Last Admin: 05/12/17 10:15 Dose: 100 mls/hr Tranexamic Acid 650 mg/ Sodium (Chloride) 56.5 mls @ 226 mls/hr IV Q3H [facility] Stop: 05/12/17 13:44 Last Admin: 05/12/17 17:33 Dose: Not Given Cefazolin Sodium 1 gm/ Sodium (Chloride) 50 mls @ 100 mls/hr IV Q8H [facility] Stop: 05/13/17 04:59 Last Admin: 05/13/17 07:53 Dose: Not Given Cefazolin Sodium/Dextrose 1 gm (/ Premix) 50 mls @ 100 mls/hr IV Q8H [facility] Stop: 05/13/17 10:29 Last Admin: 05/13/17 10:17 Dose: 100 mls/hr Lactated Ringer's (Ringers, Lactated) 500 mls @ 250 mls/hr IV ASDIRECTED [facility] Last Admin: 05/12/17 16:11 Dose: 250 mls/hr Lactated Ringer's (Ringers, Lactated) 500 mls @ 250 mls/hr IV ASDIRECTED [facility] Stop: 05/12/17 20:29 Last Admin: 05/12/17 19:00 Dose: 250 mls/hr Ketamine HCl (Ketalar) 25 mg IV ASDIRECTED [facility] Magnesium Hydroxide (Milk Of Magnesia) 30 ml PO BID PRN PRN Reason: Constipation Last Admin: 05/15/17 07:23 Dose: 30 ml Melatonin (Melatonin) 9 mg PO BEDTIME [facility] Last Admin: 05/14/17 21:14 Dose: 9 mg Naloxone HCl (Narcan) 0.2 mg IVPUSH ONETIME PRN PRN Reason: Oversedation Stop: 05/12/17 12:23 Neostigmine Methylsulfate (Neostigmine) Confirm Administered Dose 5 mg .ROUTE .STK-MED ONE Stop: 05/12/17 08:18 Verify Scopolamine (Patch) 0 each TOP DAILY [facility] Last Admin: 05/15/17 09:19 Dose: Not Given Ondansetron HCl (Zofran) Confirm Administered Dose 4 mg .ROUTE .STK-MED ONE Stop: 05/12/17 08:18 Ondansetron HCl (Zofran) 8 mg IVPUSH Q4H PRN PRN Reason: Nausea/Vomiting Last Admin: 05/12/17 13:19 Dose: 8 mg Oxycodone/Acetaminophen (Percocet 325-5 Mg) 2 tab PO Q4H PRN PRN Reason: Pain Last Admin: 05/15/17 07:23 Dose: 2 tab Oxycodone/Acetaminophen (Percocet 325-5 Mg) Confirm Administered Dose 2 tab .ROUTE .STK-MED ONE Stop: 05/13/17 21:16 Last Admin: 05/14/17 08:07 Dose: Not Given Povidone Iodine (Betadine 10% Soln) Confirm Administered Dose 1 ml .ROUTE .STK- MED ONE Stop: 05/12/17 08:54 Last Admin: 05/12/17 11:47 Dose: 30 ml Propofol (Diprivan 20 Ml) Confirm Administered Dose 200 mg .ROUTE .STK-MED ONE Stop: 05/12/17 08:18 Rocuronium [place] (Zemuron) Confirm Administered Dose 50 mg .ROUTE .STK-MED ONE Stop: 05/12/17 08:18 Scopolamine (Transderm-Scop) 1.5 mg TRDERM Q72H [facility] Stop: 05/15/17 06:45 Last Admin: 05/12/17 09:09 Dose: 1.5 mg Senna (Senna) 8.6 mg PO BID PRN PRN Reason: Constipation Last Admin: 05/15/17 07:23 Dose: 8.6 mg Sodium Chloride (Saline Flush) 10 ml FLUSH ASDIRECTED PRN PRN Reason: Keep Vein Open Succinylcholine Chloride (Quelicin) Confirm Administered Dose 200 mg .ROUTE .STK -MED ONE Stop: 05/12/17 08:18 Thrombin (Thrombin-Jmi) Confirm Administered Dose 15,000 unit .ROUTE .STK-MED ONE Stop: 05/12/17 08:54 Last Admin: 05/12/17 11:47 Dose: 5,000 unit Zolpidem Tartrate (Ambien) 5 mg PO BEDTIME PRN PRN Reason: Sleep - Exam General: Alert, Oriented Back Exam: Normal Inspection, Decreased Range of Motion (due to recent surgery) Extremities: Normal Inspection, Normal Range of Motion, Normal Capillary Refill Peripheral Pulses: 2+: Dorsalis Pedis (L), Dorsalis Pedis (R) Skin: Warm, Dry, Intact Wound/Incisions: Healing Well, Dressing Dry and Intact, No Drainage Neurological: No New Focal Deficit Psy/Mental Status: Alert - Problem List Review Problem List Initiated/Reviewed/Updated: Yes - Plan Plan:: Jessie is a 81 year old female who is status pod 2 of a lumbar laminectomy. She is doing well. Patient needs extra strengthening and cues with physical therapy so we'll continue to work on strengthening. I did have a long discussion with the patient regarding possible longterm placement and the benefits of it. Patient is in agreement with this we will continue to find a placement for her.
== END 2017-05-15 09:45 | DRG 520 ==
LOC: JP.SDS 08:08 → EDSTATUS 10:15 → JP.MS 12:28
PROVIDERS: ADMIT Orthopaedic Surgery; ATTEND Orthopaedic Surgery
PROC: 0ST20ZZ Resection of Lumbar Vertebral Disc, Open Approach (ICD-10-PCS; principal; 2017-05-12)
DX: M48.06 Spinal stenosis, lumbar region (principal); M17.12 Unilateral primary osteoarthritis, left knee; G89.29 Other chronic pain; F03.90 Unspecified dementia, unspecified severity, without behavioral disturbance, psychotic disturbance, mood disturbance, and anxiety; R11.2 Nausea with vomiting, unspecified; E78.00 Pure hypercholesterolemia, unspecified; I25.2 Old myocardial infarction; Z95.5 Presence of coronary angioplasty implant and graft; Z87.891 Personal history of nicotine dependence; I25.10 Atherosclerotic heart disease of native coronary artery without angina pectoris
CPT/HCPCS: 36415; 76001; 80048; 85025; 86850; 86900; 86901; 97110-GP; 97161-GP; 97165-GO; 97530-GP; 97535-GP; A9270-GY; J0171; J0330; J0690; J0735; J1100; J1885; J2405; J2704; J2710; J2795; J3010; J7050; J7120

== ENCOUNTER 2017-08-13 07:41 | Inpatient (IN) | payer MEDICARE, BC ==
[~2017-08-13 07:41] MED LIST: Povidone-Iodine 10% Soln 118.25 ML Bottle ONE; Thrombin (Bovine) 5,000 Unit Kit ONE
[2017-08-13] MEDS ORDERED: Gelatin Sponge,Absorbable Pwd 1 GM Pkt ONE (08:00)
[2017-08-13] MEDS ORDERED: Succinylcholine 200 MG/10 ML MDV ONE (08:18)
[2017-08-13] MEDS ORDERED: Ondansetron 4 MG/2 ML SDV ONE (08:18)
[2017-08-13] MEDS ORDERED: fentaNYL 250 MCG/5 ML SDV ONE ×2 (08:18→11:22)
[2017-08-13] MEDS ORDERED: Dexamethasone 4 MG/ML SDV ONE (08:18)
[2017-08-13] MEDS ORDERED: Rocuronium 50 MG/5 ML Vial ONE ×2 (08:18→12:47)
[2017-08-13] MEDS ORDERED: Propofol 200 MG/20 ML SDV ONE ×2 (08:18→11:03)
[2017-08-13] MEDS ORDERED: Scopolamine 1.5 MG Transdermal Patch TOP SCH (08:30)
[2017-08-13] MEDS ORDERED: Gabapentin 300 MG Cap PO ONE (08:30)
[2017-08-13] MEDS: Lactated Ringers 1,000 ML IV SCH ×2 (08:45→18:47)
[2017-08-13] MEDS ORDERED: Albuterol 0.083% 2.5 MG/3 ML Neb Soln NEB ONE (09:15)
[2017-08-13] MEDS ORDERED: Amiodarone 200 MG Tab PO ONE (09:30)
[2017-08-13] MEDS ORDERED: ceFAZolin 2 GM in Sodium Chloride 0.9% 100 ML IV ONE (10:00)
[2017-08-13] MEDS ORDERED: ceFAZolin 2 GM in Sodium Chloride 0.9% 50 ML IV ONE (10:00)
[2017-08-13] MEDS ORDERED: Ropivacaine 49.25 ML, Ketorolac 30 MG, EPINEPHrine 0.5 MG, cloNIDine 80 MCG, Sodium Chl... INJECT ONE ×5 (10:15)
[2017-08-13] MEDS ORDERED: Ketamine 500 MG/5 ML MDV IV ONE (10:15)
[2017-08-13] MEDS ORDERED: Aluminum Hydroxide/Magnesium Hydroxide/Simethicone Susp 30 ML Cup PO PRN (10:30)
[2017-08-13] MEDS ORDERED: Ondansetron 4 MG/2 ML SDV IVPUSH PRN (10:30)
[2017-08-13] MEDS ORDERED: Sodium Chloride 0.9% 10 ML Syringe FLUSH PRN (10:30)
[2017-08-13] MEDS ORDERED: Acetaminophen/oxyCODONE 325-5 MG Tab PO PRN (10:30)
[2017-08-13] MEDS ORDERED: ceFAZolin 1 GM in Sodium Chloride 0.9% 50 ML IV SCH (10:30)
[2017-08-13] MEDS ORDERED: Acetaminophen 1,000 MG in Premix Bag 1 BAG IV SCH (10:30)
[2017-08-13] MEDS ORDERED: HYDROmorphone 1 MG/ML Syringe IVPUSH PRN (10:30)
[2017-08-13] MEDS ORDERED: Zolpidem 5 MG Tab PO PRN (10:30)
[2017-08-13] MEDS ORDERED: Naloxone 0.4 MG/ML SDV IVPUSH PRN (10:30)
[2017-08-13] MEDS ORDERED: Ketorolac 60 MG/2 ML SDV IVPUSH SCH ×2 (10:30→16:00)
[2017-08-13] MEDS: Tranexamic Acid 730 MG in Sodium Chloride 0.9% 50 ML IV SCH ×2 (11:05→14:21)
[2017-08-13] MEDS ORDERED: Lactated Ringers 1,000 ML ONE (12:04)
[2017-08-13] MEDS ORDERED: Neostigmine Methylsulfate 1 MG/ML 5 ML Syringe ONE (13:06)
[2017-08-13] MEDS ORDERED: Glycopyrrolate 0.2 MG/ML 5 ML MDV ONE (13:06)
[2017-08-13] MEDS ORDERED: fentaNYL 100 MCG/2 ML SDV IVPUSH ONE ×2 (13:52→14:13)
--- NOTE | 2017-08-13 14:46 | OR ---
DATE OF PROCEDURE: 08/13/2017 PREOPERATIVE DIAGNOSES: 1. L4-5 stenosis. 2. L3-4 and L4-5 radiculopathy. 3. Foraminal stenosis at L3-4 and L4-5. 4. L4-5 spondylolisthesis. POSTOPERATIVE DIAGNOSES: 1. L4-5 stenosis. 2. L3-4 and L4-5 radiculopathy. 3. Foraminal stenosis at L3-4 and L4-5. 4. L4-5 spondylolisthesis. PROCEDURES: 1. Posterolateral fusion at L3-4 and L4-5. 2. Revision laminectomy at L4-5. 3. Segmental instrumentation at L3-4 and L4-5. 4. Use of intraoperative fluoroscopy. 5. Allograft from laminectomy and facetectomies used in for a posterolateral fusion bilaterally. 6. Right facetectomy at L3-4 and L4-5. ANESTHESIA: General endotracheal intubation. FLUID: Lactated Ringer solution. ESTIMATED BLOOD LOSS: 350 mL. COMPLICATIONS: None. SPECIMEN: None. DISCHARGE DISPOSITION: Stable to PACU. HISTORY AND INDICATIONS FOR THE PROCEDURE: The patient is well known to me. We had previously performed an L3-5 laminectomy for left-sided pain. She was having right-sided pain and clinical symptoms consistent with instability. Preoperative imaging confirmed the above-mentioned diagnosis. Risks and benefits of the procedure were explained to the patient and informed consent was obtained. DETAILS OF PROCEDURE: The patient was seen preoperatively by myself and the Anesthesia staff in the preop holding area, where the operative site was marked. She was brought to the operative suite by the Anesthesia staff, where general anesthesia was administered. A sterile Tim catheter was in place. Neuromonitoring leads were placed and normal throughout the procedure. The fluoroscopy unit was draped in a sterile manner. The patient was then flipped into a Armen table. All extremities were found to be well padded. The bed was flexed. The patient was then prepped and draped in a sterile manner. Time-out was called identifying the correct patient, the correct procedure, the correct site, and that antibiotics had been begun within appropriate period of time. I went through the same incision that I had made previously. Bleeding during the case was controlled with Bovie electrocautery, bipolar electrocautery, as well as an Aquamantys unit. I used cerebellar for retraction down to the deep fascia and then used a Silva and Bovie over the inferior aspect of the L2 spinous process as well as what was left of the L4 lamina and carried down over the facets bilaterally down to the transverse processes bilaterally. I then inserted four 65 mm Versa-Trac blade for retraction. I very carefully finished the laminectomy at L4- 5. Most of that had been removed. After that had been accomplished, I performed a full L4- 5 facetectomy on the right. At that point, I put in screws starting on the left and then the right. I put in 50 mm screws on the left, a 50-mm screw on the right at L3, and then 45 mm screws at L4 and L5. This was Drillsterus oroecoO system. I confirmed good placement. I did test the screws which all tested within normal limits. I then completed an L3-4 facetectomy on the right. I then irrigated with 3 L of Betadine infused irrigation and then placed my rods on with the set screws and then torqued them down to specification. I then decorticated the transverse processes bilaterally and then mixed my autograft from the laminectomy and facetectomies, which had been run through a [employer] bone mill with Signify allograft and then placed that along the posterolateral gutters, and then I also placed KINEX allograft in those gutters as well. I then applied Floseal and tamped any extra dry, then one and a half bags of Gelfoam powder, and then closed with #1 STRATAFIX, #2 STRATAFIX, and then 3-0 STRATAFIX followed by a sterile dressing. Neuromonitoring leads were normal throughout the case. The patient was then flipped into a supine position on the hospital bed and taken to the PACU in a stable condition. Gael Zapata DO /[id number]
--- NOTE | 2017-08-13 16:16 | PCM.PN ---
- General Info Date of Service: 08/13/17 Functional Status: Reports: Pain Controlled - Review of Systems General: Denies: Fever Musculoskeletal: Reports: Back Pain Systems Review Comment:: no acute events since surgery. Patient reports moderate to moderately severe lower back pain that radiates to the right hip. This is the same pain she was having before surgery but feels different with a sharp component following surgery. No paresthesias below her hip. She is able to wiggle her toes. No complaints of shortness of breath or chest pain. - Patient Data Vitals - Most Recent: Last Vital Signs Temp 36 C 08/13/17 15:20 Pulse 68 08/13/17 15:20 Resp 16 08/13/17 15:20 BP 124/65 08/13/17 15:20 Pulse Ox 97 08/13/17 15:20 Weight - Most Recent: 72.847 kg I&O - Last 24 Hours: Intake & Output 08/13/17 08/13/17 08/13/17 06:59 14:59 22:59 Intake Total 2200 Output Total 350 175 Balance 1850 -175 Med Orders - Current: Current Medications Al Hydroxide/Mg Hydroxide (Mag-Al Plus) 30 ml PO Q4H PRN PRN Reason: Indigestion Amiodarone HCl (Cordarone) 200 mg PO DAILY NOEMI Arformoterol Tartrate (Brovana) 15 mcg INH Q12H [facility] Diazepam (Valium.) 5 mg PO Q6H PRN PRN Reason: Spasms Hydromorphone HCl (Dilaudid) 1 mg IVPUSH Q2H PRN PRN Reason: Pain Lactated Ringer's (Ringers, Lactated) 1,000 mls @ 0 mls/hr IV ASDIRECTED [facility] PRN Reason: KVO Last Admin: 08/13/17 08:45 Dose: 25 mls/hr Cefazolin Sodium/Dextrose 1 gm (/ Premix) 50 mls @ 100 mls/hr IV Q8H [facility] Acetaminophen 1,000 mg/ Premix 100 mls @ 400 mls/hr IV Q6H [facility] Stop: 08/14/17 12:14 Ketorolac Tromethamine (Toradol) 30 mg IVPUSH Q8H [facility] Stop: 08/14/17 00:01 Magnesium Hydroxide (Milk Of Magnesia) 30 ml PO BID PRN PRN Reason: Constipation Naloxone HCl (Narcan) 0.2 mg IVPUSH ASDIRECTED PRN PRN Reason: Oversedation Stop: 08/13/17 23:00 Ondansetron HCl (Zofran) 8 mg IVPUSH Q4H PRN PRN Reason: Nausea/Vomiting Oxycodone/Acetaminophen (Percocet 325-5 Mg) 1 tab PO Q4H PRN PRN Reason: Pain Scopolamine (Transderm-Scop) 1.5 mg TOP Q72H [facility] Stop: 08/16/17 04:00 Last Admin: 08/13/17 08:42 Dose: 1.5 mg Senna (Senna) 8.6 mg PO BID PRN PRN Reason: Constipation Sodium Chloride (Saline Flush) 10 ml FLUSH ASDIRECTED PRN PRN Reason: Keep Vein Open Zolpidem Tartrate (Ambien) 5 mg PO BEDTIME PRN PRN Reason: Sleep Discontinued Medications Albuterol (Proventil Neb Soln) 2.5 mg NEB ONETIME ONE Stop: 08/13/17 09:16 Last Admin: 08/13/17 09:26 Dose: 2.5 mg Amiodarone HCl (Cordarone) 200 mg PO ONETIME ONE Stop: 08/13/17 09:31 Last Admin: 08/13/17 09:23 Dose: 200 mg Amiodarone HCl (Cordarone) 200 mg PO DAILY [facility] Ropivacaine 49.25 ml/Ketorolac Tromethamine 30 mg/Epinephrine HCl 0.5 mg/ Clonidine HCl 80 mcg/ Sodium Chloride 48.45 ml 0 ml INJECT ONETIME ONE Stop: 08/13/17 10:16 Last Admin: 08/13/17 13:20 Dose: 100 ml Dexamethasone (Dexamethasone) Confirm Administered Dose 4 mg .ROUTE .STK-MED ONE Stop: 08/13/17 08:19 Fentanyl (Sublimaze) Confirm Administered Dose 250 mcg .ROUTE .STK-MED ONE Stop: 08/13/17 08:19 Fentanyl (Sublimaze) Confirm Administered Dose 250 mcg .ROUTE .STK-MED ONE Stop: 08/13/17 11:23 Fentanyl (Sublimaze) 50 mcg IVPUSH ONETIME ONE Stop: 08/13/17 13:53 Last Admin: 08/13/17 14:06 Dose: 50 mcg Fentanyl (Sublimaze) 50 mcg IVPUSH ONETIME ONE Stop: 08/13/17 14:14 Last Admin: 08/13/17 14:20 Dose: 50 mcg Gabapentin (Neurontin) 300 mg PO ONETIME ONE Stop: 08/13/17 08:31 Last Admin: 08/13/17 08:41 Dose: 300 mg Glycopyrrolate (Robinul) Confirm Administered Dose 1 mg .ROUTE .STK-MED ONE Stop: 08/13/17 13:07 Tranexamic Acid 730 mg/ Sodium (Chloride) 57.3 mls @ 229.2 mls/hr IV Q3H [facility] Stop: 08/13/17 13:29 Last Admin: 08/13/17 14:21 Dose: 229.2 mls/hr Ketamine HCl 100 mg/ Sodium (Chloride) 100 mls @ 169.972 mls/hr IV ASDIRECTED [facility] Stop: 08/13/17 12:15 Cefazolin Sodium 2 gm/ Sodium (Chloride) 50 mls @ 100 mls/hr IV ONETIME ONE Stop: 08/13/17 10:29 Last Admin: 08/13/17 10:12 Dose: 100 mls/hr Acetaminophen 1,000 mg/ Premix 100 mls @ 400 mls/hr IV Q6H [facility] Stop: 08/14/17 04:44 Cefazolin Sodium 1 gm/ Sodium (Chloride) 50 mls @ 100 mls/hr IV Q8H [facility] Lactated Ringer's (Ringers, Lactated) Confirm Administered Dose 1,000 mls @ as directed .ROUTE .STK-MED ONE Stop: 08/13/17 12:05 Ketamine HCl (Ketalar) 28 mg IV ONETIME ONE Stop: 08/13/17 10:16 Ketorolac Tromethamine (Toradol) 30 mg IVPUSH Q8H [facility] Stop: 08/13/17 18:31 Ketorolac Tromethamine (Toradol) 30 mg IVPUSH Q8H [facility] Stop: 08/14/17 00:01 Neostigmine Methylsulfate (Neostigmine) Confirm Administered Dose 5 mg .ROUTE .STK-MED ONE Stop: 08/13/17 13:07 Ondansetron HCl (Zofran) Confirm Administered Dose 4 mg .ROUTE .STK-MED ONE Stop: 08/13/17 08:19 Povidone Iodine (Betadine 10% Soln) Confirm Administered Dose 1 ml .ROUTE .STK- MED ONE Stop: 08/13/17 07:01 Last Admin: 08/13/17 11:20 Dose: 30 ml Propofol (Diprivan 20 Ml) Confirm Administered Dose 400 mg .ROUTE .STK-MED ONE Stop: 08/13/17 08:19 Propofol (Diprivan 20 Ml) Confirm Administered Dose 400 mg .ROUTE .STK-MED ONE Stop: 08/13/17 11:04 Rocuronium [place] (Zemuron) Confirm Administered Dose 50 mg .ROUTE .STK-MED ONE Stop: 08/13/17 08:19 Rocuronium [place] (Zemuron) Confirm Administered Dose 50 mg .ROUTE .STK-MED ONE Stop: 08/13/17 12:48 Succinylcholine Chloride (Quelicin) Confirm Administered Dose 200 mg .ROUTE .STK -MED ONE Stop: 08/13/17 08:19 Thrombin (Thrombin-Jmi) Confirm Administered Dose 15,000 unit .ROUTE .STK-MED ONE Stop: 08/13/17 07:01 Last Admin: 08/13/17 11:19 Dose: 10,000 unit - Exam Quality Assessment: Supplemental Oxygen General: Alert, Oriented, Cooperative, No Acute Distress Neck: Supple Lungs: Clear to Auscultation, Normal Respiratory Effort Cardiovascular: Regular Rate, Regular Rhythm, No Murmurs GI/Abdominal Exam: No Distention Extremities: No Pedal Edema. No: Increased Warmth Skin: Warm, Dry Psy/Mental Status: Alert, Normal Affect - Problem List Review Problem List Initiated/Reviewed/Updated: Yes - Plan Plan:: ASSESSMENT AND PLAN - Spinal stenosis status post lumbar fusion, laminectomy and facetectomy L3/4 and L4/5 - moderately severe pain reported at this time but appears comfortable. vital signs stable since surgery. -Pain control and postoperative cares per surgical team Paroxysmal atrial fibrillation - has remained in sinus rhythm on amiodarone therapy. -Continue amiodarone COPD - stable at this time. -Continue home medications Eddie Andrews M.D.
[2017-08-13] MEDS: ceFAZolin 1 GM in Premix Bag 1 BAG IV SCH (16:23)
[2017-08-13] MEDS: Ketorolac 30 MG/ML SDV IVPUSH SCH (16:29)
[2017-08-13] MEDS: Acetaminophen 1,000 MG in Premix Bag 1 BAG IV SCH (18:42)
[2017-08-13] MEDS: Arformoterol 15 MCG/2 ML Neb Soln INH SCH (20:44)
[2017-08-14] MEDS: Acetaminophen 1,000 MG in Premix Bag 1 BAG IV SCH ×3 (00:41→13:06)
[2017-08-14] MEDS: ceFAZolin 1 GM in Premix Bag 1 BAG IV SCH ×3 (00:43→16:53)
[2017-08-14] MEDS: Ketorolac 30 MG/ML SDV IVPUSH SCH (00:44)
[2017-08-14] MEDS: Diazepam 5 MG Tab PO PRN ×3 (06:14→21:26)
[2017-08-14] MEDS: Arformoterol 15 MCG/2 ML Neb Soln INH SCH ×2 (08:18→21:26)
[2017-08-14] MEDS ORDERED: Amiodarone 200 MG Tab PO SCH (09:00)
--- NOTE | 2017-08-14 09:08 | PCM.PN ---
- General Info Functional Status: Reports: Pain Controlled - Review of Systems General: Reports: No Symptoms HEENT: Reports: No Symptoms Pulmonary: Reports: No Symptoms Cardiovascular: Reports: No Symptoms Gastrointestinal: Reports: No Symptoms Genitourinary: Reports: No Symptoms Musculoskeletal: Reports: Back Pain, Leg Pain Skin: Reports: No Symptoms Neurological: Reports: Difficulty Walking, Weakness, Gait Disturbance Psychiatric: Reports: No Symptoms - Patient Data Vitals - Most Recent: Last Vital Signs Temp 97.3 F 08/14/17 07:00 Pulse 64 08/14/17 08:19 Resp 18 08/14/17 07:00 BP 78/52 L 08/14/17 07:00 Pulse Ox 95 08/14/17 08:19 Weight - Most Recent: 160 lb 9.6 oz I&O - Last 24 Hours: Intake & Output 08/13/17 08/14/17 08/14/17 22:59 06:59 14:59 Intake Total 352 635 Output Total 450 1025 Balance -98 -390 Lab Results Last 24 Hours: Laboratory Results - last 24 hr 08/14/17 08/14/17 Range/Units 05:21 05:21 WBC 18.3 H (4.5-11.0) K/uL RBC 3.65 (3.30-5.50) M/uL Hgb 10.9 L D (12.0-15.0) g/dL Hct 34.5 L (36.0-48.0) % MCV 95 (80-98) fL MCH 30 (27-31) pg MCHC 32 (32-36) % Plt Count 233 (150-400) K/uL Neut % (Auto) 75 H (36-66) % Lymph % (Auto) 10 L (24-44) % [place] % (Auto) 15 H (2-6) % Eos % (Auto) 0 L (2-4) % Baso % (Auto) 0 (0-1) % Sodium 138 L (140-148) mmol/L Potassium 4.8 (3.6-5.2) mmol/L Chloride 104 (100-108) mmol/L Carbon Dioxide 27 (21-32) mmol/L Anion Gap 11.8 (5.0-14.0) mmol/L BUN 23 H (7-18) mg/dL Creatinine 1.0 (0.6-1.0) mg/dL Est Cr Clr Drug Dosing 39.70 mL/min Estimated GFR (MDRD) 53 L (>60) Glucose 113 H (74-106) mg/dL Calcium 8.5 (8.5-10.1) mg/dL Med Orders - Current: Current Medications Al Hydroxide/Mg Hydroxide (Mag-Al Plus) 30 ml PO Q4H PRN PRN Reason: Indigestion Amiodarone HCl (Cordarone) 200 mg PO DAILY [facility] Arformoterol Tartrate (Brovana) 15 mcg INH Q12H [facility] Last Admin: 08/14/17 08:18 Dose: 15 mcg Diazepam (Valium.) 5 mg PO Q6H PRN PRN Reason: Spasms Last Admin: 08/14/17 06:14 Dose: 5 mg Hydromorphone HCl (Dilaudid) 1 mg IVPUSH Q2H PRN PRN Reason: Pain Lactated Ringer's (Ringers, Lactated) 1,000 mls @ 0 mls/hr IV ASDIRECTED [facility] PRN Reason: KVO Last Admin: 08/13/17 18:47 Dose: 25 mls/hr Cefazolin Sodium/Dextrose 1 gm (/ Premix) 50 mls @ 100 mls/hr IV Q8H [facility] Last Admin: 08/14/17 00:43 Dose: 100 mls/hr Acetaminophen 1,000 mg/ Premix 100 mls @ 400 mls/hr IV Q6H [facility] Stop: 08/14/17 12:14 Last Admin: 08/14/17 06:15 Dose: Not Given Magnesium Hydroxide (Milk Of Magnesia) 30 ml PO BID PRN PRN Reason: Constipation Ondansetron HCl (Zofran) 8 mg IVPUSH Q4H PRN PRN Reason: Nausea/Vomiting Oxycodone/Acetaminophen (Percocet 325-5 Mg) 1 tab PO Q4H PRN PRN Reason: Pain Last Admin: 08/14/17 06:14 Dose: 1 tab Scopolamine (Transderm-Scop) 1.5 mg TOP Q72H [facility] Stop: 08/16/17 04:00 Last Admin: 08/13/17 08:42 Dose: 1.5 mg Senna (Senna) 8.6 mg PO BID PRN PRN Reason: Constipation Sodium Chloride (Saline Flush) 10 ml FLUSH ASDIRECTED PRN PRN Reason: Keep Vein Open Zolpidem Tartrate (Ambien) 5 mg PO BEDTIME PRN PRN Reason: Sleep Discontinued Medications Albuterol (Proventil Neb Soln) 2.5 mg NEB ONETIME ONE Stop: 08/13/17 09:16 Last Admin: 08/13/17 09:26 Dose: 2.5 mg Amiodarone HCl (Cordarone) 200 mg PO ONETIME ONE Stop: 08/13/17 09:31 Last Admin: 08/13/17 09:23 Dose: 200 mg Amiodarone HCl (Cordarone) 200 mg PO DAILY [facility] Ropivacaine 49.25 ml/Ketorolac Tromethamine 30 mg/Epinephrine HCl 0.5 mg/ Clonidine HCl 80 mcg/ Sodium Chloride 48.45 ml 0 ml INJECT ONETIME ONE Stop: 08/13/17 10:16 Last Admin: 08/13/17 13:20 Dose: 100 ml Dexamethasone (Dexamethasone) Confirm Administered Dose 4 mg .ROUTE .STK-MED ONE Stop: 08/13/17 08:19 Fentanyl (Sublimaze) Confirm Administered Dose 250 mcg .ROUTE .STK-MED ONE Stop: 08/13/17 08:19 Fentanyl (Sublimaze) Confirm Administered Dose 250 mcg .ROUTE .STK-MED ONE Stop: 08/13/17 11:23 Fentanyl (Sublimaze) 50 mcg IVPUSH ONETIME ONE Stop: 08/13/17 13:53 Last Admin: 08/13/17 14:06 Dose: 50 mcg Fentanyl (Sublimaze) 50 mcg IVPUSH ONETIME ONE Stop: 08/13/17 14:14 Last Admin: 08/13/17 14:20 Dose: 50 mcg Gabapentin (Neurontin) 300 mg PO ONETIME ONE Stop: 08/13/17 08:31 Last Admin: 08/13/17 08:41 Dose: 300 mg Glycopyrrolate (Robinul) Confirm Administered Dose 1 mg .ROUTE .STK-MED ONE Stop: 08/13/17 13:07 Tranexamic Acid 730 mg/ Sodium (Chloride) 57.3 mls @ 229.2 mls/hr IV Q3H [facility] Stop: 08/13/17 13:29 Last Admin: 08/13/17 14:21 Dose: 229.2 mls/hr Ketamine HCl 100 mg/ Sodium (Chloride) 100 mls @ 169.972 mls/hr IV ASDIRECTED [facility] Stop: 08/13/17 12:15 Cefazolin Sodium 2 gm/ Sodium (Chloride) 50 mls @ 100 mls/hr IV ONETIME ONE Stop: 08/13/17 10:29 Last Admin: 08/13/17 10:12 Dose: 100 mls/hr Acetaminophen 1,000 mg/ Premix 100 mls @ 400 mls/hr IV Q6H [facility] Stop: 08/14/17 04:44 Last Admin: 08/13/17 16:16 Dose: Not Given Cefazolin Sodium 1 gm/ Sodium (Chloride) 50 mls @ 100 mls/hr IV Q8H [facility] Last Admin: 08/13/17 16:16 Dose: Not Given Lactated Ringer's (Ringers, Lactated) Confirm Administered Dose 1,000 mls @ as directed .ROUTE .STK-MED ONE Stop: 08/13/17 12:05 Ketamine HCl (Ketalar) 28 mg IV ONETIME ONE Stop: 08/13/17 10:16 Last Admin: 08/13/17 16:25 Dose: Not Given Ketorolac Tromethamine (Toradol) 30 mg IVPUSH Q8H [facility] Stop: 08/13/17 18:31 Last Admin: 08/13/17 16:48 Dose: Not Given Ketorolac Tromethamine (Toradol) 30 mg IVPUSH Q8H [facility] Stop: 08/14/17 00:01 Ketorolac Tromethamine (Toradol) 30 mg IVPUSH Q8H [facility] Stop: 08/14/17 00:01 Last Admin: 08/14/17 00:44 Dose: 30 mg Naloxone HCl (Narcan) 0.2 mg IVPUSH ASDIRECTED PRN PRN Reason: Oversedation Stop: 08/13/17 23:00 Neostigmine Methylsulfate (Neostigmine) Confirm Administered Dose 5 mg .ROUTE .STK-MED ONE Stop: 08/13/17 13:07 Ondansetron HCl (Zofran) Confirm Administered Dose 4 mg .ROUTE .STK-MED ONE Stop: 08/13/17 08:19 Povidone Iodine (Betadine 10% Soln) Confirm Administered Dose 1 ml .ROUTE .STK- MED ONE Stop: 08/13/17 07:01 Last Admin: 08/13/17 11:20 Dose: 30 ml Propofol (Diprivan 20 Ml) Confirm Administered Dose 400 mg .ROUTE .STK-MED ONE Stop: 08/13/17 08:19 Propofol (Diprivan 20 Ml) Confirm Administered Dose 400 mg .ROUTE .STK-MED ONE Stop: 08/13/17 11:04 Rocuronium [place] (Zemuron) Confirm Administered Dose 50 mg .ROUTE .STK-MED ONE Stop: 08/13/17 08:19 Rocuronium [place] (Zemuron) Confirm Administered Dose 50 mg .ROUTE .STK-MED ONE Stop: 08/13/17 12:48 Succinylcholine Chloride (Quelicin) Confirm Administered Dose 200 mg .ROUTE .STK -MED ONE Stop: 08/13/17 08:19 Thrombin (Thrombin-Jmi) Confirm Administered Dose 15,000 unit .ROUTE .STK-MED ONE Stop: 08/13/17 07:01 Last Admin: 08/13/17 11:19 Dose: 10,000 unit - Exam General: Alert, Oriented, Moderate Distress HEENT: Pupils Equal, Pupils Reactive, EOMI, Mucous Membr. Moist/[place] Neck: Supple Lungs: Normal Respiratory Effort Back Exam: Paraspinal Tenderness Extremities: Normal Inspection, Normal Range of Motion, No Pedal Edema, Normal Capillary Refill Skin: Warm, Dry, Intact Wound/Incisions: Healing Well, Dressing Dry and Intact, No Drainage Neurological: No New Focal Deficit Psy/Mental Status: Alert, Normal Affect, Normal Mood - Problem List Review Problem List Initiated/Reviewed/Updated: Yes - My Orders Last 24 Hours: My Active Orders 08/13/17 08:30 Lactated Ringers [Ringers, Lactated] 1,000 ml IV ASDIRECTED Scopolamine [Transderm-Scop] 1.5 mg TOP Q72H 08/13/17 09:08 SCD [Sequential Compression Device] [OM.PC] Routine 08/13/17 10:00 Fluoro Up To 1Hr [CR] Routine 08/13/17 10:30 Patient Status [ADT] Routine Consult to Case Management [CONS] Routine Consult to Physician [CONS] Routine Acetaminophen/oxyCODONE [Percocet 325-5 MG] 1 tab PO Q4H PRN Alum Hydrox/Mag Hydrox/Simeth [Mag-Al Plus] 30 ml PO Q4H PRN Diazepam [Valium] 5 mg PO Q6H PRN HYDROmorphone [Dilaudid] 1 mg IVPUSH Q2H PRN Magnesium Hydroxide [Milk of Magnesia] 30 ml PO BID PRN Ondansetron [Zofran] 8 mg IVPUSH Q4H PRN Sennosides [Senna] 8.6 mg PO BID PRN Sodium Chloride 0.9% [Saline Flush] 10 ml FLUSH ASDIRECTED PRN Zolpidem [Ambien] 5 mg PO BEDTIME PRN 08/13/17 10:31 Ambulate [RC] QID Bedrest Bathroom Privileges [RC] ASDIRECTED Cardiac Monitoring [RC] .As Directed Cervical Spine Precautions [RC] ASDIRECTED Head of Bed Elevation [RC] ASDIRECTED Immobilizer [RC] ASDIRECTED Intake and Output [RC] QSHIFT Notify Provider Intake and Out [RC] ASDIRECTED Notify Provider Status Change [RC] ASDIRECTED Oxygen Therapy [RC] PRN Pulse Oximetry [RC] CONTINUOUS RT BiPAP/CPAP [RC] ASDIRECTED RT Incentive Spirometry [RC] ASDIRECTED Turn, Cough, Deep Breathe [RC] .PRN Turn, Cough, Deep Breathe [RC] .PRN Up to Chair [RC] QID Vital Signs [RC] PER UNIT ROUTINE Wound Care [RC] Q12H OT Evaluation and Treatment [CONS] Routine PT Evaluation and Treatment [CONS] Routine Encourage Fluids [OM.PC] Routine Saline Lock Insert [OM.PC] Routine Sequential Compression Device [OM.PC] Routine 08/13/17 10:34 Notify Provider Consults [RC] ASDIRECTED 08/13/17 16:00 ceFAZolin [Ancef] 1 gm Premix Bag 1 bag IV Q8H 08/13/17 18:00 Acetaminophen [Ofirmev] 1,000 mg Premix Bag 1 bag IV Q6H 08/13/17 19:00 Neurovascular Check [RC] Q4HR 08/13/17 21:00 Arformoterol [Brovana] 15 mcg INH Q12H 08/13/17 Lunch Advance Diet Instructions [DIET] 08/14/17 07:00 IS (RT) [RT Incentive Spirometry] [RC] ASDIRECTED 08/14/17 09:00 Amiodarone [Cordarone] 200 mg PO DAILY 08/15/17 05:15 BASIC METABOLIC PANEL,BMP [CHEM] DAILY CBC WITH AUTO DIFF [HEME] DAILY 08/16/17 05:15 BASIC METABOLIC PANEL,BMP [CHEM] DAILY CBC WITH AUTO DIFF [HEME] DAILY 08/17/17 05:15 BASIC METABOLIC PANEL,BMP [CHEM] DAILY CBC WITH AUTO DIFF [HEME] DAILY - Plan Plan:: ASSESSMENT AND PLAN - when I left last evening just after 8:00, the patient still very lethargic and hard to awaken. She improved over the night. She is sitting in the chair today. She appears somewhat lethargic. She is not having pain while sitting. She states that she had pain when transferred, but I am unsure whether this is the pain consistent with radiculopathy previous to surgery. I did have a discussion with her regarding the procedure that was performed yesterday. She stated she really does not want to go to an extended care facility. I explained to her again that this is fairly important that she does this. We will continue with physical therapy, occupational therapy, and pain control today.
[2017-08-14] MEDS: Amiodarone 200 MG Tab PO SCH (10:07)
[2017-08-14] MEDS: oxyCODONE 5 MG Tab PO PRN ×3 (12:27→21:25)
--- NOTE | 2017-08-14 12:53 | PCM.PN ---
- General Info Date of Service: 08/14/17 Functional Status: Reports: Pain Controlled - Review of Systems General: Reports: Weakness. Denies: Fever Musculoskeletal: Reports: Back Pain Systems Review Comment:: No acute events overnight. Patient still reports moderately severe pain but appears much more comfortable today. No radiating pain. No complaints of shortness of breath. Vital signs have been stable. - Patient Data Vitals - Most Recent: Last Vital Signs Temp 36.9 C 08/14/17 10:39 Pulse 70 08/14/17 10:39 Resp 18 08/14/17 10:39 BP 89/50 L 08/14/17 10:39 Pulse Ox 99 08/14/17 10:39 Weight - Most Recent: 72.847 kg I&O - Last 24 Hours: Intake & Output 08/13/17 08/14/17 08/14/17 22:59 06:59 14:59 Intake Total 116 692 8030 Output Total 450 1025 Balance -98 -390 1240 Lab Results Last 24 Hours: Laboratory Results - last 24 hr 08/14/17 08/14/17 Range/Units 05:21 05:21 WBC 18.3 H (4.5-11.0) K/uL RBC 3.65 (3.30-5.50) M/uL Hgb 10.9 L D (12.0-15.0) g/dL Hct 34.5 L (36.0-48.0) % MCV 95 (80-98) fL MCH 30 (27-31) pg MCHC 32 (32-36) % Plt Count 233 (150-400) K/uL Neut % (Auto) 75 H (36-66) % Lymph % (Auto) 10 L (24-44) % [place] % (Auto) 15 H (2-6) % Eos % (Auto) 0 L (2-4) % Baso % (Auto) 0 (0-1) % Sodium 138 L (140-148) mmol/L Potassium 4.8 (3.6-5.2) mmol/L Chloride 104 (100-108) mmol/L Carbon Dioxide 27 (21-32) mmol/L Anion Gap 11.8 (5.0-14.0) mmol/L BUN 23 H (7-18) mg/dL Creatinine 1.0 (0.6-1.0) mg/dL Est Cr Clr Drug Dosing 39.70 mL/min Estimated GFR (MDRD) 53 L (>60) Glucose 113 H (74-106) mg/dL Calcium 8.5 (8.5-10.1) mg/dL Med Orders - Current: Current Medications Al Hydroxide/Mg Hydroxide (Mag-Al Plus) 30 ml PO Q4H PRN PRN Reason: Indigestion Amiodarone HCl (Cordarone) 200 mg PO DAILY [facility] Last Admin: 08/14/17 10:07 Dose: 200 mg Arformoterol Tartrate (Brovana) 15 mcg INH Q12H [facility] Last Admin: 08/14/17 08:18 Dose: 15 mcg Diazepam (Valium.) 5 mg PO Q6H PRN PRN Reason: Spasms Last Admin: 08/14/17 12:27 Dose: 5 mg Hydromorphone HCl (Dilaudid) 1 mg IVPUSH Q2H PRN PRN Reason: Pain Lactated Ringer's (Ringers, Lactated) 1,000 mls @ 0 mls/hr IV ASDIRECTED [facility] PRN Reason: KVO Last Admin: 08/13/17 18:47 Dose: 25 mls/hr Cefazolin Sodium/Dextrose 1 gm (/ Premix) 50 mls @ 100 mls/hr IV Q8H [facility] Last Admin: 08/14/17 09:06 Dose: 100 mls/hr Magnesium Hydroxide (Milk Of Magnesia) 30 ml PO BID PRN PRN Reason: Constipation Ondansetron HCl (Zofran) 8 mg IVPUSH Q4H PRN PRN Reason: Nausea/Vomiting Oxycodone HCl (Oxycodone) 5 - 10 mg PO Q4H PRN PRN Reason: Pain Last Admin: 08/14/17 12:27 Dose: 5 mg Scopolamine (Transderm-Scop) 1.5 mg TOP Q72H [facility] Stop: 08/16/17 04:00 Last Admin: 08/13/17 08:42 Dose: 1.5 mg Senna (Senna) 8.6 mg PO BID PRN PRN Reason: Constipation Sodium Chloride (Saline Flush) 10 ml FLUSH ASDIRECTED PRN PRN Reason: Keep Vein Open Zolpidem Tartrate (Ambien) 5 mg PO BEDTIME PRN PRN Reason: Sleep Discontinued Medications Albuterol (Proventil Neb Soln) 2.5 mg NEB ONETIME ONE Stop: 08/13/17 09:16 Last Admin: 08/13/17 09:26 Dose: 2.5 mg Amiodarone HCl (Cordarone) 200 mg PO ONETIME ONE Stop: 08/13/17 09:31 Last Admin: 08/13/17 09:23 Dose: 200 mg Amiodarone HCl (Cordarone) 200 mg PO DAILY [facility] Ropivacaine 49.25 ml/Ketorolac Tromethamine 30 mg/Epinephrine HCl 0.5 mg/ Clonidine HCl 80 mcg/ Sodium Chloride 48.45 ml 0 ml INJECT ONETIME ONE Stop: 08/13/17 10:16 Last Admin: 08/13/17 13:20 Dose: 100 ml Dexamethasone (Dexamethasone) Confirm Administered Dose 4 mg .ROUTE .STK-MED ONE Stop: 08/13/17 08:19 Fentanyl (Sublimaze) Confirm Administered Dose 250 mcg .ROUTE .STK-MED ONE Stop: 08/13/17 08:19 Fentanyl (Sublimaze) Confirm Administered Dose 250 mcg .ROUTE .STK-MED ONE Stop: 08/13/17 11:23 Fentanyl (Sublimaze) 50 mcg IVPUSH ONETIME ONE Stop: 08/13/17 13:53 Last Admin: 08/13/17 14:06 Dose: 50 mcg Fentanyl (Sublimaze) 50 mcg IVPUSH ONETIME ONE Stop: 08/13/17 14:14 Last Admin: 08/13/17 14:20 Dose: 50 mcg Gabapentin (Neurontin) 300 mg PO ONETIME ONE Stop: 08/13/17 08:31 Last Admin: 08/13/17 08:41 Dose: 300 mg Glycopyrrolate (Robinul) Confirm Administered Dose 1 mg .ROUTE .STK-MED ONE Stop: 08/13/17 13:07 Tranexamic Acid 730 mg/ Sodium (Chloride) 57.3 mls @ 229.2 mls/hr IV Q3H [facility] Stop: 08/13/17 13:29 Last Admin: 08/13/17 14:21 Dose: 229.2 mls/hr Ketamine HCl 100 mg/ Sodium (Chloride) 100 mls @ 169.972 mls/hr IV ASDIRECTED [facility] Stop: 08/13/17 12:15 Cefazolin Sodium 2 gm/ Sodium (Chloride) 50 mls @ 100 mls/hr IV ONETIME ONE Stop: 08/13/17 10:29 Last Admin: 08/13/17 10:12 Dose: 100 mls/hr Acetaminophen 1,000 mg/ Premix 100 mls @ 400 mls/hr IV Q6H [facility] Stop: 08/14/17 04:44 Last Admin: 08/13/17 16:16 Dose: Not Given Cefazolin Sodium 1 gm/ Sodium (Chloride) 50 mls @ 100 mls/hr IV Q8H [facility] Last Admin: 08/13/17 16:16 Dose: Not Given Lactated Ringer's (Ringers, Lactated) Confirm Administered Dose 1,000 mls @ as directed .ROUTE .STK-MED ONE Stop: 08/13/17 12:05 Acetaminophen 1,000 mg/ Premix 100 mls @ 400 mls/hr IV Q6H [facility] Stop: 08/14/17 12:14 Last Admin: 08/14/17 06:15 Dose: Not Given Ketamine HCl (Ketalar) 28 mg IV ONETIME ONE Stop: 08/13/17 10:16 Last Admin: 08/13/17 16:25 Dose: Not Given Ketorolac Tromethamine (Toradol) 30 mg IVPUSH Q8H [facility] Stop: 08/13/17 18:31 Last Admin: 08/13/17 16:48 Dose: Not Given Ketorolac Tromethamine (Toradol) 30 mg IVPUSH Q8H [facility] Stop: 08/14/17 00:01 Ketorolac Tromethamine (Toradol) 30 mg IVPUSH Q8H [facility] Stop: 08/14/17 00:01 Last Admin: 08/14/17 00:44 Dose: 30 mg Naloxone HCl (Narcan) 0.2 mg IVPUSH ASDIRECTED PRN PRN Reason: Oversedation Stop: 08/13/17 23:00 Neostigmine Methylsulfate (Neostigmine) Confirm Administered Dose 5 mg .ROUTE .STK-MED ONE Stop: 08/13/17 13:07 Ondansetron HCl (Zofran) Confirm Administered Dose 4 mg .ROUTE .STK-MED ONE Stop: 08/13/17 08:19 Oxycodone/Acetaminophen (Percocet 325-5 Mg) 1 tab PO Q4H PRN PRN Reason: Pain Last Admin: 08/14/17 06:14 Dose: 1 tab Povidone Iodine (Betadine 10% Soln) Confirm Administered Dose 1 ml .ROUTE .STK- MED ONE Stop: 08/13/17 07:01 Last Admin: 08/13/17 11:20 Dose: 30 ml Propofol (Diprivan 20 Ml) Confirm Administered Dose 400 mg .ROUTE .STK-MED ONE Stop: 08/13/17 08:19 Propofol (Diprivan 20 Ml) Confirm Administered Dose 400 mg .ROUTE .STK-MED ONE Stop: 08/13/17 11:04 Rocuronium [place] (Zemuron) Confirm Administered Dose 50 mg .ROUTE .STK-MED ONE Stop: 08/13/17 08:19 Rocuronium [place] (Zemuron) Confirm Administered Dose 50 mg .ROUTE .STK-MED ONE Stop: 08/13/17 12:48 Succinylcholine Chloride (Quelicin) Confirm Administered Dose 200 mg .ROUTE .STK -MED ONE Stop: 08/13/17 08:19 Thrombin (Thrombin-Jmi) Confirm Administered Dose 15,000 unit .ROUTE .STK-MED ONE Stop: 08/13/17 07:01 Last Admin: 08/13/17 11:19 Dose: 10,000 unit - Exam Quality Assessment: No: Supplemental Oxygen General: Alert, Cooperative, No Acute Distress Neck: Supple Lungs: Normal Respiratory Effort GI/Abdominal Exam: No Distention Extremities: No Pedal Edema Neurological: Other (Able to wiggle toes and move both lower legs with no difficulties) Psy/Mental Status: Alert - Problem List Review Problem List Initiated/Reviewed/Updated: Yes - My Orders Last 24 Hours: My Active Orders 08/14/17 11:30 oxyCODONE 5 - 10 mg PO Q4H PRN - Plan Plan:: ASSESSMENT AND PLAN - Spinal stenosis status post lumbar fusion, laminectomy and facetectomy L3/4 and L4/5 - still reporting a fair amount of pain but looks much more comfortable today. Vital signs remained stable. -Pain control and postoperative cares per surgical team Paroxysmal atrial fibrillation - has remained in sinus rhythm on amiodarone therapy. -Continue amiodarone COPD - stable at this time. -Continue home medications Eddie Andrews M.D.
[2017-08-14] MEDS ORDERED: Sodium Chloride 0.9% 500 ML IV SCH (17:30)
[2017-08-14] MEDS: Magnesium Hydroxide 400 MG/5 ML Susp 30 ML Cup PO PRN (17:54)
[2017-08-14] MEDS: Melatonin 3 MG Tab PO SCH (21:27)
--- NOTE | 2017-08-14 21:53 | PCM.SN ---
- Free Text/Narrative Note: call from [address] [place] [address]; "Mrs. Bauer is uncomfortable, unable to void" o; bailey removed early this morning, has tried several times to void without success. bladder scan >900 ml in bladder a; urinary retention p; re-insert indwelling bailey cath for the night, re-assess options in the morning. continue present plan of care.
[2017-08-15] MEDS: ceFAZolin 1 GM in Premix Bag 1 BAG IV SCH ×3 (01:06→17:51)
[2017-08-15] MEDS: Diazepam 5 MG Tab PO PRN (07:33)
[2017-08-15] MEDS: oxyCODONE 5 MG Tab PO PRN (07:33)
[2017-08-15] MEDS: Arformoterol 15 MCG/2 ML Neb Soln INH SCH ×2 (08:45→20:05)
[2017-08-15] MEDS: Amiodarone 200 MG Tab PO SCH (09:46)
[2017-08-15] MEDS: Ibuprofen 600 MG Tab PO SCH ×3 (10:42→20:06)
--- NOTE | 2017-08-15 10:47 | PCM.PN ---
- General Info Date of Service: 08/15/17 Functional Status: Reports: Tolerating Diet. Denies: Pain Controlled - Review of Systems General: Reports: Weakness Musculoskeletal: Reports: Back Pain Systems Review Comment:: No acute events overnight but patient reports ongoing difficulty with pain control. There has been some difficulty with ambulation and patient has difficulty standing but I think it might be more of a difficulty with understanding instructions due to some confusion. She did have a Tim catheter placed for urinary retention. She has not had any fevers. Vital signs have been stable. She appears comfortable. Not much of an appetite. - Patient Data Vitals - Most Recent: Last Vital Signs Temp 37.3 C 08/15/17 07:16 Pulse 61 08/15/17 07:16 Resp 16 08/15/17 07:16 BP 130/74 08/15/17 07:16 Pulse Ox 92 L 08/15/17 03:50 Weight - Most Recent: 72.847 kg I&O - Last 24 Hours: Intake & Output 08/14/17 08/15/17 08/15/17 22:59 06:59 14:59 Intake Total 50 500 Output Total 800 1100 Balance -750 -600 Lab Results Last 24 Hours: Laboratory Results - last 24 hr 08/15/17 08/15/17 Range/Units 05:40 05:40 WBC 15.4 H (4.5-11.0) K/uL RBC 3.45 (3.30-5.50) M/uL Hgb 10.6 L (12.0-15.0) g/dL Hct 32.9 L (36.0-48.0) % MCV 95 (80-98) fL MCH 31 (27-31) pg MCHC 32 (32-36) % Plt Count 214 (150-400) K/uL Neut % (Auto) 68 H (36-66) % Lymph % (Auto) 15 L (24-44) % [place] % (Auto) 17 H (2-6) % Eos % (Auto) 1 L (2-4) % Baso % (Auto) 0 (0-1) % Sodium 138 L (140-148) mmol/L Potassium 4.2 (3.6-5.2) mmol/L Chloride 100 (100-108) mmol/L Carbon Dioxide 31 (21-32) mmol/L Anion Gap 11.2 (5.0-14.0) mmol/L BUN 21 H (7-18) mg/dL Creatinine 0.9 (0.6-1.0) mg/dL Est Cr Clr Drug Dosing 44.11 mL/min Estimated GFR (MDRD) > 60 (>60) Glucose 120 H (74-106) mg/dL Calcium 8.2 L (8.5-10.1) mg/dL Med Orders - Current: Current Medications Al Hydroxide/Mg Hydroxide (Mag-Al Plus) 30 ml PO Q4H PRN PRN Reason: Indigestion Amiodarone HCl (Cordarone) 200 mg PO DAILY [facility] Last Admin: 08/15/17 09:46 Dose: 200 mg Arformoterol Tartrate (Brovana) 15 mcg INH Q12H [facility] Last Admin: 08/15/17 08:45 Dose: 15 mcg Diazepam (Valium.) 5 mg PO Q6H PRN PRN Reason: Spasms Last Admin: 08/15/17 07:33 Dose: 5 mg Hydromorphone HCl (Dilaudid) 1 mg IVPUSH Q2H PRN PRN Reason: Pain Cefazolin Sodium/Dextrose 1 gm (/ Premix) 50 mls @ 100 mls/hr IV Q8H [facility] Last Admin: 08/15/17 07:29 Dose: 100 mls/hr Ibuprofen (Motrin) 600 mg PO TID [facility] Magnesium Hydroxide (Milk Of Magnesia) 30 ml PO BID PRN PRN Reason: Constipation Last Admin: 08/14/17 17:54 Dose: 30 ml Melatonin (Melatonin) 9 mg PO BEDTIME [facility] Last Admin: 08/14/17 21:27 Dose: 9 mg Ondansetron HCl (Zofran) 8 mg IVPUSH Q4H PRN PRN Reason: Nausea/Vomiting Oxycodone HCl (Oxycodone) 5 - 10 mg PO Q4H PRN PRN Reason: Pain Last Admin: 08/15/17 07:33 Dose: 10 mg Senna (Senna) 8.6 mg PO BID PRN PRN Reason: Constipation Sodium Chloride (Saline Flush) 10 ml FLUSH ASDIRECTED PRN PRN Reason: Keep Vein Open Discontinued Medications Albuterol (Proventil Neb Soln) 2.5 mg NEB ONETIME ONE Stop: 08/13/17 09:16 Last Admin: 08/13/17 09:26 Dose: 2.5 mg Amiodarone HCl (Cordarone) 200 mg PO ONETIME ONE Stop: 08/13/17 09:31 Last Admin: 08/13/17 09:23 Dose: 200 mg Amiodarone HCl (Cordarone) 200 mg PO DAILY [facility] Ropivacaine 49.25 ml/Ketorolac Tromethamine 30 mg/Epinephrine HCl 0.5 mg/ Clonidine HCl 80 mcg/ Sodium Chloride 48.45 ml 0 ml INJECT ONETIME ONE Stop: 08/13/17 10:16 Last Admin: 08/13/17 13:20 Dose: 100 ml Dexamethasone (Dexamethasone) Confirm Administered Dose 4 mg .ROUTE .STK-MED ONE Stop: 08/13/17 08:19 Fentanyl (Sublimaze) Confirm Administered Dose 250 mcg .ROUTE .STK-MED ONE Stop: 08/13/17 08:19 Fentanyl (Sublimaze) Confirm Administered Dose 250 mcg .ROUTE .STK-MED ONE Stop: 08/13/17 11:23 Fentanyl (Sublimaze) 50 mcg IVPUSH ONETIME ONE Stop: 08/13/17 13:53 Last Admin: 08/13/17 14:06 Dose: 50 mcg Fentanyl (Sublimaze) 50 mcg IVPUSH ONETIME ONE Stop: 08/13/17 14:14 Last Admin: 08/13/17 14:20 Dose: 50 mcg Gabapentin (Neurontin) 300 mg PO ONETIME ONE Stop: 08/13/17 08:31 Last Admin: 08/13/17 08:41 Dose: 300 mg Glycopyrrolate (Robinul) Confirm Administered Dose 1 mg .ROUTE .STK-MED ONE Stop: 08/13/17 13:07 Lactated Ringer's (Ringers, Lactated) 1,000 mls @ 0 mls/hr IV ASDIRECTED [facility] PRN Reason: KVO Last Admin: 08/13/17 18:47 Dose: 25 mls/hr Tranexamic Acid 730 mg/ Sodium (Chloride) 57.3 mls @ 229.2 mls/hr IV Q3H [facility] Stop: 08/13/17 13:29 Last Admin: 08/13/17 14:21 Dose: 229.2 mls/hr Ketamine HCl 100 mg/ Sodium (Chloride) 100 mls @ 169.972 mls/hr IV ASDIRECTED [facility] Stop: 08/13/17 12:15 Cefazolin Sodium 2 gm/ Sodium (Chloride) 50 mls @ 100 mls/hr IV ONETIME ONE Stop: 08/13/17 10:29 Last Admin: 08/13/17 10:12 Dose: 100 mls/hr Acetaminophen 1,000 mg/ Premix 100 mls @ 400 mls/hr IV Q6H [facility] Stop: 08/14/17 04:44 Last Admin: 08/13/17 16:16 Dose: Not Given Cefazolin Sodium 1 gm/ Sodium (Chloride) 50 mls @ 100 mls/hr IV Q8H [facility] Last Admin: 08/13/17 16:16 Dose: Not Given Lactated Ringer's (Ringers, Lactated) Confirm Administered Dose 1,000 mls @ as directed .ROUTE .STK-MED ONE Stop: 08/13/17 12:05 Acetaminophen 1,000 mg/ Premix 100 mls @ 400 mls/hr IV Q6H [facility] Stop: 08/14/17 12:14 Last Admin: 08/14/17 13:06 Dose: 400 mls/hr Sodium Chloride (Normal Saline) 500 mls @ 500 mls/hr IV ASDIRECTED [facility] Stop: 08/14/17 18:31 Last Admin: 08/14/17 17:56 Dose: 500 mls/hr Ketamine HCl (Ketalar) 28 mg IV ONETIME ONE Stop: 08/13/17 10:16 Last Admin: 08/13/17 16:25 Dose: Not Given Ketorolac Tromethamine (Toradol) 30 mg IVPUSH Q8H [facility] Stop: 08/13/17 18:31 Last Admin: 08/13/17 16:48 Dose: Not Given Ketorolac Tromethamine (Toradol) 30 mg IVPUSH Q8H [facility] Stop: 08/14/17 00:01 Ketorolac Tromethamine (Toradol) 30 mg IVPUSH Q8H [facility] Stop: 08/14/17 00:01 Last Admin: 08/14/17 00:44 Dose: 30 mg Naloxone HCl (Narcan) 0.2 mg IVPUSH ASDIRECTED PRN PRN Reason: Oversedation Stop: 08/13/17 23:00 Neostigmine Methylsulfate (Neostigmine) Confirm Administered Dose 5 mg .ROUTE .STK-MED ONE Stop: 08/13/17 13:07 Ondansetron HCl (Zofran) Confirm Administered Dose 4 mg .ROUTE .STK-MED ONE Stop: 08/13/17 08:19 Oxycodone/Acetaminophen (Percocet 325-5 Mg) 1 tab PO Q4H PRN PRN Reason: Pain Last Admin: 08/14/17 06:14 Dose: 1 tab Povidone Iodine (Betadine 10% Soln) Confirm Administered Dose 1 ml .ROUTE .STK- MED ONE Stop: 08/13/17 07:01 Last Admin: 08/13/17 11:20 Dose: 30 ml Propofol (Diprivan 20 Ml) Confirm Administered Dose 400 mg .ROUTE .STK-MED ONE Stop: 08/13/17 08:19 Propofol (Diprivan 20 Ml) Confirm Administered Dose 400 mg .ROUTE .STK-MED ONE Stop: 08/13/17 11:04 Rocuronium [place] (Zemuron) Confirm Administered Dose 50 mg .ROUTE .STK-MED ONE Stop: 08/13/17 08:19 Rocuronium [place] (Zemuron) Confirm Administered Dose 50 mg .ROUTE .STK-MED ONE Stop: 08/13/17 12:48 Scopolamine (Transderm-Scop) 1.5 mg TOP Q72H [facility] Stop: 08/16/17 04:00 Last Admin: 08/13/17 08:42 Dose: 1.5 mg Succinylcholine Chloride (Quelicin) Confirm Administered Dose 200 mg .ROUTE .STK -MED ONE Stop: 08/13/17 08:19 Thrombin (Thrombin-Jmi) Confirm Administered Dose 15,000 unit .ROUTE .STK-MED ONE Stop: 08/13/17 07:01 Last Admin: 08/13/17 11:19 Dose: 10,000 unit Zolpidem Tartrate (Ambien) 5 mg PO BEDTIME PRN PRN Reason: Sleep - Exam Quality Assessment: No: Supplemental Oxygen General: Alert, Cooperative, No Acute Distress Neck: Supple Lungs: Clear to Auscultation, Normal Respiratory Effort Cardiovascular: Regular Rate, Regular Rhythm Extremities: No Pedal Edema Skin: Warm, Dry Psy/Mental Status: Alert, Anxious - Problem List Review Problem List Initiated/Reviewed/Updated: Yes - My Orders Last 24 Hours: My Active Orders 08/14/17 11:30 oxyCODONE 5 - 10 mg PO Q4H PRN 08/14/17 21:00 Melatonin 9 mg PO BEDTIME 08/15/17 09:52 Convert IV to Saline Lock [OM.PC] Routine 08/15/17 10:00 Ibuprofen [Motrin] 600 mg PO TID 08/15/17 11:00 Gabapentin [Neurontin] 300 mg PO BID - Plan Plan:: ASSESSMENT AND PLAN - Spinal stenosis status post lumbar fusion, laminectomy and facetectomy L3/4 and L4/5 - still reporting a fair amount of pain and having some difficulty with standing. Possibly some difficulty with delirium from pain medications versus more of a chronic issue with dementia. -Trial of gabapentin and scheduled ibuprofen -Pain control and postoperative cares per surgical team Hyperactive delirium - could be related to pain medications but she is also on a scopolamine patch. Does have underlying dementia which is relatively mild. -Continue melatonin at bedtime -Discontinue scopolamine patch -Alternative pain control attempt as above Paroxysmal atrial fibrillation - has remained in sinus rhythm on amiodarone therapy. -Continue amiodarone COPD - stable at this time. -Continue home medications Eddie Andrews M.D.
--- NOTE | 2017-08-15 11:25 | PCM.PN ---
- General Info Functional Status: Reports: Pain Controlled - Review of Systems General: Reports: No Symptoms HEENT: Reports: No Symptoms Pulmonary: Reports: No Symptoms Cardiovascular: Reports: No Symptoms Gastrointestinal: Reports: No Symptoms Genitourinary: Reports: No Symptoms Musculoskeletal: Reports: Back Pain, Leg Pain Skin: Reports: No Symptoms Neurological: Reports: Difficulty Walking, Weakness Psychiatric: Reports: Confusion - Patient Data Vitals - Most Recent: Last Vital Signs Temp 98.6 F 08/15/17 11:05 Pulse 62 08/15/17 11:05 Resp 16 08/15/17 11:05 BP 117/49 L 08/15/17 11:05 Pulse Ox 92 L 08/15/17 11:05 Weight - Most Recent: 160 lb 9.6 oz I&O - Last 24 Hours: Intake & Output 08/14/17 08/15/17 08/15/17 22:59 06:59 14:59 Intake Total 50 500 Output Total 800 1100 Balance -750 -600 Lab Results Last 24 Hours: Laboratory Results - last 24 hr 08/15/17 08/15/17 Range/Units 05:40 05:40 WBC 15.4 H (4.5-11.0) K/uL RBC 3.45 (3.30-5.50) M/uL Hgb 10.6 L (12.0-15.0) g/dL Hct 32.9 L (36.0-48.0) % MCV 95 (80-98) fL MCH 31 (27-31) pg MCHC 32 (32-36) % Plt Count 214 (150-400) K/uL Neut % (Auto) 68 H (36-66) % Lymph % (Auto) 15 L (24-44) % [place] % (Auto) 17 H (2-6) % Eos % (Auto) 1 L (2-4) % Baso % (Auto) 0 (0-1) % Sodium 138 L (140-148) mmol/L Potassium 4.2 (3.6-5.2) mmol/L Chloride 100 (100-108) mmol/L Carbon Dioxide 31 (21-32) mmol/L Anion Gap 11.2 (5.0-14.0) mmol/L BUN 21 H (7-18) mg/dL Creatinine 0.9 (0.6-1.0) mg/dL Est Cr Clr Drug Dosing 44.11 mL/min Estimated GFR (MDRD) > 60 (>60) Glucose 120 H (74-106) mg/dL Calcium 8.2 L (8.5-10.1) mg/dL Med Orders - Current: Current Medications Al Hydroxide/Mg Hydroxide (Mag-Al Plus) 30 ml PO Q4H PRN PRN Reason: Indigestion Amiodarone HCl (Cordarone) 200 mg PO DAILY [facility] Last Admin: 08/15/17 09:46 Dose: 200 mg Arformoterol Tartrate (Brovana) 15 mcg INH Q12H [facility] Last Admin: 08/15/17 08:45 Dose: 15 mcg Diazepam (Valium.) 5 mg PO Q6H PRN PRN Reason: Spasms Last Admin: 08/15/17 07:33 Dose: 5 mg Gabapentin (Neurontin) 300 mg PO BID [facility] Hydromorphone HCl (Dilaudid) 1 mg IVPUSH Q2H PRN PRN Reason: Pain Cefazolin Sodium/Dextrose 1 gm (/ Premix) 50 mls @ 100 mls/hr IV Q8H [facility] Last Admin: 08/15/17 07:29 Dose: 100 mls/hr Ibuprofen (Motrin) 600 mg PO TID [facility] Last Admin: 08/15/17 10:42 Dose: 600 mg Magnesium Hydroxide (Milk Of Magnesia) 30 ml PO BID PRN PRN Reason: Constipation Last Admin: 08/14/17 17:54 Dose: 30 ml Melatonin (Melatonin) 9 mg PO BEDTIME [facility] Last Admin: 08/14/17 21:27 Dose: 9 mg Ondansetron HCl (Zofran) 8 mg IVPUSH Q4H PRN PRN Reason: Nausea/Vomiting Oxycodone HCl (Oxycodone) 5 - 10 mg PO Q4H PRN PRN Reason: Pain Last Admin: 08/15/17 07:33 Dose: 10 mg Senna (Senna) 8.6 mg PO BID PRN PRN Reason: Constipation Sodium Chloride (Saline Flush) 10 ml FLUSH ASDIRECTED PRN PRN Reason: Keep Vein Open Discontinued Medications Albuterol (Proventil Neb Soln) 2.5 mg NEB ONETIME ONE Stop: 08/13/17 09:16 Last Admin: 08/13/17 09:26 Dose: 2.5 mg Amiodarone HCl (Cordarone) 200 mg PO ONETIME ONE Stop: 08/13/17 09:31 Last Admin: 08/13/17 09:23 Dose: 200 mg Amiodarone HCl (Cordarone) 200 mg PO DAILY [facility] Ropivacaine 49.25 ml/Ketorolac Tromethamine 30 mg/Epinephrine HCl 0.5 mg/ Clonidine HCl 80 mcg/ Sodium Chloride 48.45 ml 0 ml INJECT ONETIME ONE Stop: 08/13/17 10:16 Last Admin: 08/13/17 13:20 Dose: 100 ml Dexamethasone (Dexamethasone) Confirm Administered Dose 4 mg .ROUTE .STK-MED ONE Stop: 08/13/17 08:19 Fentanyl (Sublimaze) Confirm Administered Dose 250 mcg .ROUTE .STK-MED ONE Stop: 08/13/17 08:19 Fentanyl (Sublimaze) Confirm Administered Dose 250 mcg .ROUTE .STK-MED ONE Stop: 08/13/17 11:23 Fentanyl (Sublimaze) 50 mcg IVPUSH ONETIME ONE Stop: 08/13/17 13:53 Last Admin: 08/13/17 14:06 Dose: 50 mcg Fentanyl (Sublimaze) 50 mcg IVPUSH ONETIME ONE Stop: 08/13/17 14:14 Last Admin: 08/13/17 14:20 Dose: 50 mcg Gabapentin (Neurontin) 300 mg PO ONETIME ONE Stop: 08/13/17 08:31 Last Admin: 08/13/17 08:41 Dose: 300 mg Glycopyrrolate (Robinul) Confirm Administered Dose 1 mg .ROUTE .STK-MED ONE Stop: 08/13/17 13:07 Lactated Ringer's (Ringers, Lactated) 1,000 mls @ 0 mls/hr IV ASDIRECTED [facility] PRN Reason: KVO Last Admin: 08/13/17 18:47 Dose: 25 mls/hr Tranexamic Acid 730 mg/ Sodium (Chloride) 57.3 mls @ 229.2 mls/hr IV Q3H [facility] Stop: 08/13/17 13:29 Last Admin: 08/13/17 14:21 Dose: 229.2 mls/hr Ketamine HCl 100 mg/ Sodium (Chloride) 100 mls @ 169.972 mls/hr IV ASDIRECTED [facility] Stop: 08/13/17 12:15 Cefazolin Sodium 2 gm/ Sodium (Chloride) 50 mls @ 100 mls/hr IV ONETIME ONE Stop: 08/13/17 10:29 Last Admin: 08/13/17 10:12 Dose: 100 mls/hr Acetaminophen 1,000 mg/ Premix 100 mls @ 400 mls/hr IV Q6H [facility] Stop: 08/14/17 04:44 Last Admin: 08/13/17 16:16 Dose: Not Given Cefazolin Sodium 1 gm/ Sodium (Chloride) 50 mls @ 100 mls/hr IV Q8H [facility] Last Admin: 08/13/17 16:16 Dose: Not Given Lactated Ringer's (Ringers, Lactated) Confirm Administered Dose 1,000 mls @ as directed .ROUTE .STK-MED ONE Stop: 08/13/17 12:05 Acetaminophen 1,000 mg/ Premix 100 mls @ 400 mls/hr IV Q6H [facility] Stop: 08/14/17 12:14 Last Admin: 08/14/17 13:06 Dose: 400 mls/hr Sodium Chloride (Normal Saline) 500 mls @ 500 mls/hr IV ASDIRECTED [facility] Stop: 08/14/17 18:31 Last Admin: 08/14/17 17:56 Dose: 500 mls/hr Ketamine HCl (Ketalar) 28 mg IV ONETIME ONE Stop: 08/13/17 10:16 Last Admin: 08/13/17 16:25 Dose: Not Given Ketorolac Tromethamine (Toradol) 30 mg IVPUSH Q8H [facility] Stop: 08/13/17 18:31 Last Admin: 08/13/17 16:48 Dose: Not Given Ketorolac Tromethamine (Toradol) 30 mg IVPUSH Q8H [facility] Stop: 08/14/17 00:01 Ketorolac Tromethamine (Toradol) 30 mg IVPUSH Q8H [facility] Stop: 08/14/17 00:01 Last Admin: 08/14/17 00:44 Dose: 30 mg Naloxone HCl (Narcan) 0.2 mg IVPUSH ASDIRECTED PRN PRN Reason: Oversedation Stop: 08/13/17 23:00 Neostigmine Methylsulfate (Neostigmine) Confirm Administered Dose 5 mg .ROUTE .STK-MED ONE Stop: 08/13/17 13:07 Ondansetron HCl (Zofran) Confirm Administered Dose 4 mg .ROUTE .STK-MED ONE Stop: 08/13/17 08:19 Oxycodone/Acetaminophen (Percocet 325-5 Mg) 1 tab PO Q4H PRN PRN Reason: Pain Last Admin: 08/14/17 06:14 Dose: 1 tab Povidone Iodine (Betadine 10% Soln) Confirm Administered Dose 1 ml .ROUTE .STK- MED ONE Stop: 08/13/17 07:01 Last Admin: 08/13/17 11:20 Dose: 30 ml Propofol (Diprivan 20 Ml) Confirm Administered Dose 400 mg .ROUTE .STK-MED ONE Stop: 08/13/17 08:19 Propofol (Diprivan 20 Ml) Confirm Administered Dose 400 mg .ROUTE .STK-MED ONE Stop: 08/13/17 11:04 Rocuronium [place] (Zemuron) Confirm Administered Dose 50 mg .ROUTE .STK-MED ONE Stop: 08/13/17 08:19 Rocuronium [place] (Zemuron) Confirm Administered Dose 50 mg .ROUTE .STK-MED ONE Stop: 08/13/17 12:48 Scopolamine (Transderm-Scop) 1.5 mg TOP Q72H [facility] Stop: 08/16/17 04:00 Last Admin: 08/13/17 08:42 Dose: 1.5 mg Succinylcholine Chloride (Quelicin) Confirm Administered Dose 200 mg .ROUTE .STK -MED ONE Stop: 08/13/17 08:19 Thrombin (Thrombin-Jmi) Confirm Administered Dose 15,000 unit .ROUTE .STK-MED ONE Stop: 08/13/17 07:01 Last Admin: 08/13/17 11:19 Dose: 10,000 unit Zolpidem Tartrate (Ambien) 5 mg PO BEDTIME PRN PRN Reason: Sleep - Exam General: Alert, Oriented HEENT: Pupils Equal, Pupils Reactive, EOMI, Mucous Membr. Moist/[place] Neck: Supple Lungs: Normal Respiratory Effort Extremities: Leg Pain, Limited Range of Motion Skin: Warm, Intact Wound/Incisions: Healing Well, Dressing Dry and Intact, No Drainage Neurological: No New Focal Deficit Physical Findings Comments:: the patient has gooddorsiflexion plantar flexion of the ankle bilaterally. She has difficulty with right knee extension secondary to low back pain. She has better left knee extension but also pain with range of motion of the low back. She was confused last evening. She is had difficulty with physical therapy as she does not either understand or is not being compliant with how to get up and down. Staff is trying very hard to help her. Dr. Andrews will be adding some gabapentin to see if that helps with her pain and cognition as well. We will continue physical therapy, occupational therapy, and pain control. - Problem List Review Problem List Initiated/Reviewed/Updated: Yes - My Orders Last 24 Hours: My Active Orders 08/16/17 05:15 BASIC METABOLIC PANEL,BMP [CHEM] DAILY CBC WITH AUTO DIFF [HEME] DAILY 08/17/17 05:15 BASIC METABOLIC PANEL,BMP [CHEM] DAILY CBC WITH AUTO DIFF [HEME] DAILY - Plan Plan:: ASSESSMENT AND PLAN - postoperative date to posterior lumbar fusion L3-L5 with right facetectomies. Plan: Physical therapy, occupational therapy, pain control. Addition of gabapentin by hospitalist service.
[2017-08-15] MEDS: Gabapentin 300 MG Cap PO SCH ×2 (12:16→20:06)
[2017-08-15] MEDS: Magnesium Hydroxide 400 MG/5 ML Susp 30 ML Cup PO PRN (12:21)
[2017-08-15] MEDS: Sennosides 8.6 MG Tab PO PRN (12:21)
[2017-08-15] MEDS: Melatonin 3 MG Tab PO SCH (20:05)
[2017-08-16] MEDS: oxyCODONE 5 MG Tab PO PRN ×2 (05:36→13:46)
[2017-08-16] MEDS ORDERED: Diazepam 5 MG Tab PO PRN (07:57)
[2017-08-16] MEDS: Gabapentin 300 MG Cap PO SCH ×4 (08:23→20:17)
[2017-08-16] MEDS: Amiodarone 200 MG Tab PO SCH (08:23)
[2017-08-16] MEDS: Ibuprofen 600 MG Tab PO SCH ×3 (08:23→20:17)
[2017-08-16] MEDS: Arformoterol 15 MCG/2 ML Neb Soln INH SCH ×2 (09:11→20:17)
--- NOTE | 2017-08-16 09:13 | PCM.PN ---
- General Info Date of Service: 08/16/17 Functional Status: Reports: Pain Controlled, Ambulating - Review of Systems General: Reports: Weakness Musculoskeletal: Reports: Back Pain, Leg Pain Systems Review Comment:: No acute events overnight. Little less confused today and moving better. Pain control is a little better today. No fevers. Vital signs stable. - Patient Data Vitals - Most Recent: Last Vital Signs Temp 36.6 C 08/16/17 07:50 Pulse 66 08/16/17 07:50 Resp 20 08/16/17 07:50 BP 131/55 L 08/16/17 07:50 Pulse Ox 94 L 08/16/17 07:50 Weight - Most Recent: 72.847 kg I&O - Last 24 Hours: Intake & Output 08/15/17 08/16/17 08/16/17 22:59 06:59 14:59 Intake Total 250 240 350 Output Total 1400 750 Balance -1150 -510 350 Lab Results Last 24 Hours: Laboratory Results - last 24 hr 08/16/17 08/16/17 Range/Units 05:48 05:48 WBC 12.1 H (4.5-11.0) K/uL RBC 3.30 (3.30-5.50) M/uL Hgb 10.1 L (12.0-15.0) g/dL Hct 31.8 L (36.0-48.0) % MCV 96 (80-98) fL MCH 31 (27-31) pg MCHC 32 (32-36) % Plt Count 198 (150-400) K/uL Neut % (Auto) 60 (36-66) % Lymph % (Auto) 21 L (24-44) % [place] % (Auto) 16 H (2-6) % Eos % (Auto) 3 (2-4) % Baso % (Auto) 0 (0-1) % Sodium 141 (140-148) mmol/L Potassium 4.1 (3.6-5.2) mmol/L Chloride 104 (100-108) mmol/L Carbon Dioxide 30 (21-32) mmol/L Anion Gap 7.2 (5.0-14.0) mmol/L BUN 16 (7-18) mg/dL Creatinine 0.8 (0.6-1.0) mg/dL Est Cr Clr Drug Dosing 49.63 mL/min Estimated GFR (MDRD) > 60 (>60) Glucose 91 (74-106) mg/dL Calcium 8.2 L (8.5-10.1) mg/dL Med Orders - Current: Current Medications Al Hydroxide/Mg Hydroxide (Mag-Al Plus) 30 ml PO Q4H PRN PRN Reason: Indigestion Amiodarone HCl (Cordarone) 200 mg PO DAILY [facility] Last Admin: 08/16/17 08:23 Dose: 200 mg Arformoterol Tartrate (Brovana) 15 mcg INH Q12H [facility] Last Admin: 08/15/17 20:05 Dose: 15 mcg Bisacodyl (Dulcolax) 10 mg PO ONETIME ONE Stop: 08/16/17 10:01 Diazepam (Valium.) 5 mg PO Q6H PRN PRN Reason: Spasms Gabapentin (Neurontin) 300 mg PO TID [facility] Hydromorphone HCl (Dilaudid) 1 mg IVPUSH Q2H PRN PRN Reason: Pain Ibuprofen (Motrin) 600 mg PO TID [facility] Last Admin: 08/16/17 08:23 Dose: 600 mg Magnesium Hydroxide (Milk Of Magnesia) 30 ml PO BID PRN PRN Reason: Constipation Last Admin: 08/15/17 12:21 Dose: 30 ml Melatonin (Melatonin) 9 mg PO BEDTIME [facility] Last Admin: 08/15/17 20:05 Dose: 9 mg Ondansetron HCl (Zofran) 8 mg IVPUSH Q4H PRN PRN Reason: Nausea/Vomiting Oxycodone HCl (Oxycodone) 5 - 10 mg PO Q4H PRN PRN Reason: Pain Last Admin: 08/16/17 05:36 Dose: 10 mg Senna (Senna) 8.6 mg PO BID PRN PRN Reason: Constipation Last Admin: 08/15/17 12:21 Dose: 8.6 mg Sodium Chloride (Saline Flush) 10 ml FLUSH ASDIRECTED PRN PRN Reason: Keep Vein Open Discontinued Medications Albuterol (Proventil Neb Soln) 2.5 mg NEB ONETIME ONE Stop: 08/13/17 09:16 Last Admin: 08/13/17 09:26 Dose: 2.5 mg Amiodarone HCl (Cordarone) 200 mg PO ONETIME ONE Stop: 08/13/17 09:31 Last Admin: 08/13/17 09:23 Dose: 200 mg Amiodarone HCl (Cordarone) 200 mg PO DAILY [facility] Ropivacaine 49.25 ml/Ketorolac Tromethamine 30 mg/Epinephrine HCl 0.5 mg/ Clonidine HCl 80 mcg/ Sodium Chloride 48.45 ml 0 ml INJECT ONETIME ONE Stop: 08/13/17 10:16 Last Admin: 08/13/17 13:20 Dose: 100 ml Dexamethasone (Dexamethasone) Confirm Administered Dose 4 mg .ROUTE .STK-MED ONE Stop: 08/13/17 08:19 Diazepam (Valium.) 5 mg PO Q6H PRN PRN Reason: Spasms Last Admin: 08/15/17 07:33 Dose: 5 mg Fentanyl (Sublimaze) Confirm Administered Dose 250 mcg .ROUTE .STK-MED ONE Stop: 08/13/17 08:19 Fentanyl (Sublimaze) Confirm Administered Dose 250 mcg .ROUTE .STK-MED ONE Stop: 08/13/17 11:23 Fentanyl (Sublimaze) 50 mcg IVPUSH ONETIME ONE Stop: 08/13/17 13:53 Last Admin: 08/13/17 14:06 Dose: 50 mcg Fentanyl (Sublimaze) 50 mcg IVPUSH ONETIME ONE Stop: 08/13/17 14:14 Last Admin: 08/13/17 14:20 Dose: 50 mcg Gabapentin (Neurontin) 300 mg PO ONETIME ONE Stop: 08/13/17 08:31 Last Admin: 08/13/17 08:41 Dose: 300 mg Gabapentin (Neurontin) 300 mg PO BID [facility] Last Admin: 08/16/17 08:23 Dose: 300 mg Glycopyrrolate (Robinul) Confirm Administered Dose 1 mg .ROUTE .STK-MED ONE Stop: 08/13/17 13:07 Lactated Ringer's (Ringers, Lactated) 1,000 mls @ 0 mls/hr IV ASDIRECTED [facility] PRN Reason: KVO Last Admin: 08/13/17 18:47 Dose: 25 mls/hr Tranexamic Acid 730 mg/ Sodium (Chloride) 57.3 mls @ 229.2 mls/hr IV Q3H [facility] Stop: 08/13/17 13:29 Last Admin: 08/13/17 14:21 Dose: 229.2 mls/hr Ketamine HCl 100 mg/ Sodium (Chloride) 100 mls @ 169.972 mls/hr IV ASDIRECTED [facility] Stop: 08/13/17 12:15 Cefazolin Sodium 2 gm/ Sodium (Chloride) 50 mls @ 100 mls/hr IV ONETIME ONE Stop: 08/13/17 10:29 Last Admin: 08/13/17 10:12 Dose: 100 mls/hr Acetaminophen 1,000 mg/ Premix 100 mls @ 400 mls/hr IV Q6H [facility] Stop: 08/14/17 04:44 Last Admin: 08/13/17 16:16 Dose: Not Given Cefazolin Sodium 1 gm/ Sodium (Chloride) 50 mls @ 100 mls/hr IV Q8H [facility] Last Admin: 08/13/17 16:16 Dose: Not Given Lactated Ringer's (Ringers, Lactated) Confirm Administered Dose 1,000 mls @ as directed .ROUTE .STK-MED ONE Stop: 08/13/17 12:05 Cefazolin Sodium/Dextrose 1 gm (/ Premix) 50 mls @ 100 mls/hr IV Q8H [facility] Last Admin: 08/15/17 17:51 Dose: Not Given Acetaminophen 1,000 mg/ Premix 100 mls @ 400 mls/hr IV Q6H [facility] Stop: 08/14/17 12:14 Last Admin: 08/14/17 13:06 Dose: 400 mls/hr Sodium Chloride (Normal Saline) 500 mls @ 500 mls/hr IV ASDIRECTED [facility] Stop: 08/14/17 18:31 Last Admin: 08/14/17 17:56 Dose: 500 mls/hr Ketamine HCl (Ketalar) 28 mg IV ONETIME ONE Stop: 08/13/17 10:16 Last Admin: 08/13/17 16:25 Dose: Not Given Ketorolac Tromethamine (Toradol) 30 mg IVPUSH Q8H [facility] Stop: 08/13/17 18:31 Last Admin: 08/13/17 16:48 Dose: Not Given Ketorolac Tromethamine (Toradol) 30 mg IVPUSH Q8H [facility] Stop: 08/14/17 00:01 Ketorolac Tromethamine (Toradol) 30 mg IVPUSH Q8H [facility] Stop: 08/14/17 00:01 Last Admin: 08/14/17 00:44 Dose: 30 mg Naloxone HCl (Narcan) 0.2 mg IVPUSH ASDIRECTED PRN PRN Reason: Oversedation Stop: 08/13/17 23:00 Neostigmine Methylsulfate (Neostigmine) Confirm Administered Dose 5 mg .ROUTE .STK-MED ONE Stop: 08/13/17 13:07 Ondansetron HCl (Zofran) Confirm Administered Dose 4 mg .ROUTE .STK-MED ONE Stop: 08/13/17 08:19 Oxycodone/Acetaminophen (Percocet 325-5 Mg) 1 tab PO Q4H PRN PRN Reason: Pain Last Admin: 08/14/17 06:14 Dose: 1 tab Povidone Iodine (Betadine 10% Soln) Confirm Administered Dose 1 ml .ROUTE .STK- MED ONE Stop: 08/13/17 07:01 Last Admin: 08/13/17 11:20 Dose: 30 ml Propofol (Diprivan 20 Ml) Confirm Administered Dose 400 mg .ROUTE .STK-MED ONE Stop: 08/13/17 08:19 Propofol (Diprivan 20 Ml) Confirm Administered Dose 400 mg .ROUTE .STK-MED ONE Stop: 08/13/17 11:04 Rocuronium [place] (Zemuron) Confirm Administered Dose 50 mg .ROUTE .STK-MED ONE Stop: 08/13/17 08:19 Rocuronium [place] (Zemuron) Confirm Administered Dose 50 mg .ROUTE .STK-MED ONE Stop: 08/13/17 12:48 Scopolamine (Transderm-Scop) 1.5 mg TOP Q72H [facility] Stop: 08/16/17 04:00 Last Admin: 08/13/17 08:42 Dose: 1.5 mg Succinylcholine Chloride (Quelicin) Confirm Administered Dose 200 mg .ROUTE .STK -MED ONE Stop: 08/13/17 08:19 Thrombin (Thrombin-Jmi) Confirm Administered Dose 15,000 unit .ROUTE .STK-MED ONE Stop: 08/13/17 07:01 Last Admin: 08/13/17 11:19 Dose: 10,000 unit Zolpidem Tartrate (Ambien) 5 mg PO BEDTIME PRN PRN Reason: Sleep - Exam Quality Assessment: No: Supplemental Oxygen General: Alert, Oriented, Cooperative, No Acute Distress Neck: Supple Lungs: Normal Respiratory Effort Back Exam: No: Full Range of Motion Extremities: No Pedal Edema, Other (no tenderness over right thigh. No deformity of mass of the right thigh ) Psy/Mental Status: Alert, Normal Affect - Problem List Review Problem List Initiated/Reviewed/Updated: Yes - My Orders Last 24 Hours: My Active Orders 08/15/17 09:52 Convert IV to Saline Lock [OM.PC] Routine 08/15/17 10:00 Ibuprofen [Motrin] 600 mg PO TID 08/16/17 09:07 Gabapentin [Neurontin] 300 mg PO TID 08/16/17 09:08 DC Tim Catheter [Urinary Catheter Removal] [RC] Per Unit Routine Bisacodyl [Dulcolax] 10 mg PO ONETIME ONE - Plan Plan:: ASSESSMENT AND PLAN - Spinal stenosis status post lumbar fusion, laminectomy and facetectomy L3/4 and L4/5 - pain and ambulation are little better today. Still weak and requiring the assist of 1-2 people -Trial of gabapentin, increased dose to 3 times daily -scheduled ibuprofen -Pain control and postoperative cares per surgical team Hyperactive delirium - doing better today after scopolamine patch was discontinued. -Continue melatonin at bedtime -Discontinue scopolamine patch -Alternative pain control attempt as above Acute urinary retention - probably secondary to narcotics. -Remove Tim catheter today with trial of voiding Paroxysmal atrial fibrillation - has remained in sinus rhythm on amiodarone therapy. -Continue amiodarone COPD - stable at this time. -Continue home medications Eddie Andrews M.D.
[2017-08-16] MEDS ORDERED: Bisacodyl 5 MG Tab PO ONE (10:00)
[2017-08-16] MEDS: Magnesium Hydroxide 400 MG/5 ML Susp 30 ML Cup PO PRN (14:23)
[2017-08-16] MEDS: Melatonin 3 MG Tab PO SCH (20:17)
[2017-08-16] MEDS: Sennosides 8.6 MG Tab PO PRN (20:34)
--- NOTE | 2017-08-16 21:26 | PCM.SN ---
- Free Text/Narrative Note: time 2100; call from [address] [place] [address]; Mrs. Bauer had bailey cath removed at 10 am this morning, has not voided since removal, bladder scan at 5pm 267ml , at 2044 bladder scan 337 ml. Mrs. Bauer does not appear to be in distress a; urinary retention p; re bladder scan in 2 hours, if has not voided in 2 hours or volume has increased, re-insert Bailey Cath and leave in place.
[2017-08-17] MEDS ORDERED: Bisacodyl 10 MG Supp RECTAL PRN (06:54)
[2017-08-17] MEDS: oxyCODONE 5 MG Tab PO PRN ×2 (07:56→14:04)
[2017-08-17] MEDS: Amiodarone 200 MG Tab PO SCH (08:44)
[2017-08-17] MEDS: Gabapentin 300 MG Cap PO SCH ×2 (08:44→14:04)
[2017-08-17] MEDS: Ibuprofen 600 MG Tab PO SCH ×2 (08:45→14:04)
[2017-08-17] MEDS: Arformoterol 15 MCG/2 ML Neb Soln INH SCH (08:45)
[2017-08-17 10:54] VITALS: BP 120/51
--- NOTE | 2017-08-19 09:53 | PCM.PN ---
- General Info Date of Service: 08/16/17 Admission Dx/Problem (Free Text): Patient is an 81-year-old female who is status postop day 2 of a lumbar fusion. She is doing very well. Patient continues to improve with ambulation. Pain is under control with oral pain medication. Patient plans to go to a snf facility. Functional Status: Reports: Pain Controlled, Tolerating Diet, Ambulating, Urinating - Review of Systems General: Reports: No Symptoms - Patient Data Vitals - Most Recent: Last Vital Signs Temp 36.6 C 08/17/17 10:53 Pulse 78 08/17/17 10:53 Resp 18 08/17/17 10:53 BP 120/51 L 08/17/17 10:53 Pulse Ox 91 L 08/17/17 10:53 Weight - Most Recent: 160 lb 9.6 oz Med Orders - Current: Current Medications Discontinued Medications Al Hydroxide/Mg Hydroxide (Mag-Al Plus) 30 ml PO Q4H PRN PRN Reason: Indigestion Albuterol (Proventil Neb Soln) 2.5 mg NEB ONETIME ONE Stop: 08/13/17 09:16 Last Admin: 08/13/17 09:26 Dose: 2.5 mg Amiodarone HCl (Cordarone) 200 mg PO ONETIME ONE Stop: 08/13/17 09:31 Last Admin: 08/13/17 09:23 Dose: 200 mg Amiodarone HCl (Cordarone) 200 mg PO DAILY [facility] Amiodarone HCl (Cordarone) 200 mg PO DAILY [facility] Last Admin: 08/17/17 08:44 Dose: 200 mg Arformoterol Tartrate (Brovana) 15 mcg INH Q12H [facility] Last Admin: 08/17/17 08:45 Dose: 15 mcg Bisacodyl (Dulcolax) 10 mg PO ONETIME ONE Stop: 08/16/17 10:01 Last Admin: 08/16/17 10:21 Dose: 10 mg Bisacodyl (Dulcolax) 10 mg RECTAL BID PRN PRN Reason: Constipation Ropivacaine 49.25 ml/Ketorolac Tromethamine 30 mg/Epinephrine HCl 0.5 mg/ Clonidine HCl 80 mcg/ Sodium Chloride 48.45 ml 0 ml INJECT ONETIME ONE Stop: 08/13/17 10:16 Last Admin: 08/13/17 13:20 Dose: 100 ml Dexamethasone (Dexamethasone) Confirm Administered Dose 4 mg .ROUTE .STK-MED ONE Stop: 08/13/17 08:19 Diazepam (Valium.) 5 mg PO Q6H PRN PRN Reason: Spasms Last Admin: 08/15/17 07:33 Dose: 5 mg Diazepam (Valium.) 5 mg PO Q6H PRN PRN Reason: Spasms Fentanyl (Sublimaze) Confirm Administered Dose 250 mcg .ROUTE .STK-MED ONE Stop: 08/13/17 08:19 Fentanyl (Sublimaze) Confirm Administered Dose 250 mcg .ROUTE .STK-MED ONE Stop: 08/13/17 11:23 Fentanyl (Sublimaze) 50 mcg IVPUSH ONETIME ONE Stop: 08/13/17 13:53 Last Admin: 08/13/17 14:06 Dose: 50 mcg Fentanyl (Sublimaze) 50 mcg IVPUSH ONETIME ONE Stop: 08/13/17 14:14 Last Admin: 08/13/17 14:20 Dose: 50 mcg Gabapentin (Neurontin) 300 mg PO ONETIME ONE Stop: 08/13/17 08:31 Last Admin: 08/13/17 08:41 Dose: 300 mg Gabapentin (Neurontin) 300 mg PO BID [facility] Last Admin: 08/16/17 08:23 Dose: 300 mg Gabapentin (Neurontin) 300 mg PO TID [facility] Last Admin: 08/17/17 14:04 Dose: 300 mg Gelatin (Gelfoam) 2 gm .ROUTE .STK-MED ONE Stop: 08/13/17 08:01 Glycopyrrolate (Robinul) Confirm Administered Dose 1 mg .ROUTE .STK-MED ONE Stop: 08/13/17 13:07 Hydromorphone HCl (Dilaudid) 1 mg IVPUSH Q2H PRN PRN Reason: Pain Lactated Ringer's (Ringers, Lactated) 1,000 mls @ 0 mls/hr IV ASDIRECTED [facility] PRN Reason: KVO Last Admin: 08/13/17 18:47 Dose: 25 mls/hr Tranexamic Acid 730 mg/ Sodium (Chloride) 57.3 mls @ 229.2 mls/hr IV Q3H [facility] Stop: 08/13/17 13:29 Last Admin: 08/13/17 14:21 Dose: 229.2 mls/hr Ketamine HCl 100 mg/ Sodium (Chloride) 100 mls @ 169.972 mls/hr IV ASDIRECTED [facility] Stop: 08/13/17 12:15 Cefazolin Sodium 2 gm/ Sodium (Chloride) 50 mls @ 100 mls/hr IV ONETIME ONE Stop: 08/13/17 10:29 Last Admin: 08/13/17 10:12 Dose: 100 mls/hr Acetaminophen 1,000 mg/ Premix 100 mls @ 400 mls/hr IV Q6H [facility] Stop: 08/14/17 04:44 Last Admin: 08/13/17 16:16 Dose: Not Given Cefazolin Sodium 1 gm/ Sodium (Chloride) 50 mls @ 100 mls/hr IV Q8H [facility] Last Admin: 08/13/17 16:16 Dose: Not Given Lactated Ringer's (Ringers, Lactated) Confirm Administered Dose 1,000 mls @ as directed .ROUTE .STK-MED ONE Stop: 08/13/17 12:05 Cefazolin Sodium/Dextrose 1 gm (/ Premix) 50 mls @ 100 mls/hr IV Q8H [facility] Last Admin: 08/15/17 17:51 Dose: Not Given Acetaminophen 1,000 mg/ Premix 100 mls @ 400 mls/hr IV Q6H [facility] Stop: 08/14/17 12:14 Last Admin: 08/14/17 13:06 Dose: 400 mls/hr Sodium Chloride (Normal Saline) 500 mls @ 500 mls/hr IV ASDIRECTED [facility] Stop: 08/14/17 18:31 Last Admin: 08/14/17 17:56 Dose: 500 mls/hr Ibuprofen (Motrin) 600 mg PO TID [facility] Last Admin: 08/17/17 14:04 Dose: 600 mg Ketamine HCl (Ketalar) 28 mg IV ONETIME ONE Stop: 08/13/17 10:16 Last Admin: 08/13/17 16:25 Dose: Not Given Ketorolac Tromethamine (Toradol) 30 mg IVPUSH Q8H [facility] Stop: 08/13/17 18:31 Last Admin: 08/13/17 16:48 Dose: Not Given Ketorolac Tromethamine (Toradol) 30 mg IVPUSH Q8H [facility] Stop: 08/14/17 00:01 Ketorolac Tromethamine (Toradol) 30 mg IVPUSH Q8H [facility] Stop: 08/14/17 00:01 Last Admin: 08/14/17 00:44 Dose: 30 mg Magnesium Hydroxide (Milk Of Magnesia) 30 ml PO BID PRN PRN Reason: Constipation Last Admin: 08/16/17 14:23 Dose: 30 ml Melatonin (Melatonin) 9 mg PO BEDTIME [facility] Last Admin: 08/16/17 20:17 Dose: 9 mg Naloxone HCl (Narcan) 0.2 mg IVPUSH ASDIRECTED PRN PRN Reason: Oversedation Stop: 08/13/17 23:00 Neostigmine Methylsulfate (Neostigmine) Confirm Administered Dose 5 mg .ROUTE .STK-MED ONE Stop: 08/13/17 13:07 Ondansetron HCl (Zofran) Confirm Administered Dose 4 mg .ROUTE .STK-MED ONE Stop: 08/13/17 08:19 Ondansetron HCl (Zofran) 8 mg IVPUSH Q4H PRN PRN Reason: Nausea/Vomiting Oxycodone HCl (Oxycodone) 5 - 10 mg PO Q4H PRN PRN Reason: Pain Last Admin: 08/17/17 14:04 Dose: 5 mg Oxycodone/Acetaminophen (Percocet 325-5 Mg) 1 tab PO Q4H PRN PRN Reason: Pain Last Admin: 08/14/17 06:14 Dose: 1 tab Povidone Iodine (Betadine 10% Soln) Confirm Administered Dose 1 ml .ROUTE .STK- MED ONE Stop: 08/13/17 07:01 Last Admin: 08/13/17 11:20 Dose: 30 ml Propofol (Diprivan 20 Ml) Confirm Administered Dose 400 mg .ROUTE .STK-MED ONE Stop: 08/13/17 08:19 Propofol (Diprivan 20 Ml) Confirm Administered Dose 400 mg .ROUTE .STK-MED ONE Stop: 08/13/17 11:04 Rocuronium [place] (Zemuron) Confirm Administered Dose 50 mg .ROUTE .STK-MED ONE Stop: 08/13/17 08:19 Rocuronium [place] (Zemuron) Confirm Administered Dose 50 mg .ROUTE .STK-MED ONE Stop: 08/13/17 12:48 Scopolamine (Transderm-Scop) 1.5 mg TOP Q72H [facility] Stop: 08/16/17 04:00 Last Admin: 08/13/17 08:42 Dose: 1.5 mg Senna (Senna) 8.6 mg PO BID PRN PRN Reason: Constipation Last Admin: 08/16/17 20:34 Dose: 8.6 mg Sodium Chloride (Saline Flush) 10 ml FLUSH ASDIRECTED PRN PRN Reason: Keep Vein Open Succinylcholine Chloride (Quelicin) Confirm Administered Dose 200 mg .ROUTE .STK -MED ONE Stop: 08/13/17 08:19 Thrombin (Thrombin-Jmi) Confirm Administered Dose 15,000 unit .ROUTE .STK-MED ONE Stop: 08/13/17 07:01 Last Admin: 08/13/17 11:19 Dose: 10,000 unit Zolpidem Tartrate (Ambien) 5 mg PO BEDTIME PRN PRN Reason: Sleep - Exam General: Alert, Oriented Back Exam: Normal Inspection Extremities: Normal Inspection Peripheral Pulses: 2+: Dorsalis Pedis (L), Dorsalis Pedis (R) Skin: Warm, Dry, Intact Wound/Incisions: Healing Well, Dressing Dry and Intact Neurological: No New Focal Deficit, Strength Equal Bilateral, Reflexes Equal Bilateral Psy/Mental Status: Alert - Problem List Review Problem List Initiated/Reviewed/Updated: Yes - Plan Plan:: ASSESSMENT AND PLAN - Spinal stenosis status post lumbar fusion, laminectomy and facetectomy L3/4 and L4/5 - patient ambulating better today. We'll plan to discharge her to a snf facility. Her that available tomorrow so we'll plan to send her then.
--- NOTE | 2017-08-19 09:55 | PCM.DCSUM1 ---
Discharge Summary - Hospital Course Free Text/Narrative:: Patient is status postop day 3 of a lumbar fusion. She is doing very well. Patient will be discharged today. Her pain is under control with oral pain medication. She continues to improve on ambulation. She denies any other issues at this time. - Discharge Data Discharge Date: 08/17/17 Discharge Disposition: DC/Tfer to SNF 03 Condition: Good - Patient Summary/Data Consults: Consultations 08/13/17 10:30 Consult to Case Management [CONS] Routine Comment: Physician Instructions: Quantity: Consult to Physician [CONS] Routine Consulting Provider: Eddie Andrews Call Completed to Consulting Physician: text Reason for Consult: med management 08/13/17 10:31 OT Evaluation and Treatment [CONS] Routine Please Evaluate and Treat. OT Reason for Consult: Strengthening This query below is only for informational purposes and is not editable. PT Evaluation and Treatment [CONS] Routine Please Evaluate and Treat. PT Reason for Consult: Strengthening This query below is only for informational purposes and is not editable. - Patient Instructions Diet: Usual Diet as Tolerated Activity: Apply Ice, As Tolerated Driving: Do Not Drive Showering/Bathing: May Shower, No Tub Bathing/Swimming Wound/Incision Care: Keep Operative Site/Wound Site Clean and Dry, Change Dressing Daily Notify Provider of: Fever, Increased Pain, Swelling and Redness, Drainage, Nausea and/or Vomiting Other/Special Instructions: Leave Tim catheter in place, schedule consult with urology as soon as possible available. - Discharge Plan Prescriptions/Med Rec: Gabapentin [Neurontin] 300 mg PO TID #180 cap oxyCODONE 5 - 10 mg PO Q4H PRN #90 tablet PRN Reason: Pain Home Medications: Home Meds Amiodarone HCl 200 mg PO DAILY 04/02/17 [History] Naproxen Sodium [Aleve] 220 mg PO TID PRN 07/19/17 [History] Arformoterol [Brovana] 15 mcg INH Q12HR 08/13/17 [History] oxyCODONE 5 - 10 mg PO Q4H PRN #90 tablet 08/16/17 [Rx] Gabapentin [Neurontin] 300 mg PO TID #180 cap 08/17/17 [Rx] Referrals: Kisha Skaggs NP [Nurse Practitioner] - (1 month follow up) - Discharge Summary/Plan Comment DC Time >30 min.: Yes Discharge Summary/Plan Comment: Patient will be discharged today to [place] [facility]. She will follow up with orthopedic clinic 1 month. She is to notify us if she has any issues in the meantime. We'll discharge her on Percocet. - Patient Data Vitals - Most Recent: Last Vital Signs Temp 36.6 C 08/17/17 10:53 Pulse 78 08/17/17 10:53 Resp 18 08/17/17 10:53 BP 120/51 L 08/17/17 10:53 Pulse Ox 91 L 08/17/17 10:53 Weight - Most Recent: 160 lb 9.6 oz Med Orders - Current: Current Medications Discontinued Medications Al Hydroxide/Mg Hydroxide (Mag-Al Plus) 30 ml PO Q4H PRN PRN Reason: Indigestion Albuterol (Proventil Neb Soln) 2.5 mg NEB ONETIME ONE Stop: 08/13/17 09:16 Last Admin: 08/13/17 09:26 Dose: 2.5 mg Amiodarone HCl (Cordarone) 200 mg PO ONETIME ONE Stop: 08/13/17 09:31 Last Admin: 08/13/17 09:23 Dose: 200 mg Amiodarone HCl (Cordarone) 200 mg PO DAILY [facility] Amiodarone HCl (Cordarone) 200 mg PO DAILY [facility] Last Admin: 08/17/17 08:44 Dose: 200 mg Arformoterol Tartrate (Brovana) 15 mcg INH Q12H [facility] Last Admin: 08/17/17 08:45 Dose: 15 mcg Bisacodyl (Dulcolax) 10 mg PO ONETIME ONE Stop: 08/16/17 10:01 Last Admin: 08/16/17 10:21 Dose: 10 mg Bisacodyl (Dulcolax) 10 mg RECTAL BID PRN PRN Reason: Constipation Ropivacaine 49.25 ml/Ketorolac Tromethamine 30 mg/Epinephrine HCl 0.5 mg/ Clonidine HCl 80 mcg/ Sodium Chloride 48.45 ml 0 ml INJECT ONETIME ONE Stop: 08/13/17 10:16 Last Admin: 08/13/17 13:20 Dose: 100 ml Dexamethasone (Dexamethasone) Confirm Administered Dose 4 mg .ROUTE .STK-MED ONE Stop: 08/13/17 08:19 Diazepam (Valium.) 5 mg PO Q6H PRN PRN Reason: Spasms Last Admin: 08/15/17 07:33 Dose: 5 mg Diazepam (Valium.) 5 mg PO Q6H PRN PRN Reason: Spasms Fentanyl (Sublimaze) Confirm Administered Dose 250 mcg .ROUTE .STK-MED ONE Stop: 08/13/17 08:19 Fentanyl (Sublimaze) Confirm Administered Dose 250 mcg .ROUTE .STK-MED ONE Stop: 08/13/17 11:23 Fentanyl (Sublimaze) 50 mcg IVPUSH ONETIME ONE Stop: 08/13/17 13:53 Last Admin: 08/13/17 14:06 Dose: 50 mcg Fentanyl (Sublimaze) 50 mcg IVPUSH ONETIME ONE Stop: 08/13/17 14:14 Last Admin: 08/13/17 14:20 Dose: 50 mcg Gabapentin (Neurontin) 300 mg PO ONETIME ONE Stop: 08/13/17 08:31 Last Admin: 08/13/17 08:41 Dose: 300 mg Gabapentin (Neurontin) 300 mg PO BID [facility] Last Admin: 08/16/17 08:23 Dose: 300 mg Gabapentin (Neurontin) 300 mg PO TID [facility] Last Admin: 08/17/17 14:04 Dose: 300 mg Gelatin (Gelfoam) 2 gm .ROUTE .STK-MED ONE Stop: 08/13/17 08:01 Glycopyrrolate (Robinul) Confirm Administered Dose 1 mg .ROUTE .STK-MED ONE Stop: 08/13/17 13:07 Hydromorphone HCl (Dilaudid) 1 mg IVPUSH Q2H PRN PRN Reason: Pain Lactated Ringer's (Ringers, Lactated) 1,000 mls @ 0 mls/hr IV ASDIRECTED [facility] PRN Reason: KVO Last Admin: 08/13/17 18:47 Dose: 25 mls/hr Tranexamic Acid 730 mg/ Sodium (Chloride) 57.3 mls @ 229.2 mls/hr IV Q3H [facility] Stop: 08/13/17 13:29 Last Admin: 08/13/17 14:21 Dose: 229.2 mls/hr Ketamine HCl 100 mg/ Sodium (Chloride) 100 mls @ 169.972 mls/hr IV ASDIRECTED [facility] Stop: 08/13/17 12:15 Cefazolin Sodium 2 gm/ Sodium (Chloride) 50 mls @ 100 mls/hr IV ONETIME ONE Stop: 08/13/17 10:29 Last Admin: 08/13/17 10:12 Dose: 100 mls/hr Acetaminophen 1,000 mg/ Premix 100 mls @ 400 mls/hr IV Q6H [facility] Stop: 08/14/17 04:44 Last Admin: 08/13/17 16:16 Dose: Not Given Cefazolin Sodium 1 gm/ Sodium (Chloride) 50 mls @ 100 mls/hr IV Q8H [facility] Last Admin: 08/13/17 16:16 Dose: Not Given Lactated Ringer's (Ringers, Lactated) Confirm Administered Dose 1,000 mls @ as directed .ROUTE .STK-MED ONE Stop: 08/13/17 12:05 Cefazolin Sodium/Dextrose 1 gm (/ Premix) 50 mls @ 100 mls/hr IV Q8H [facility] Last Admin: 08/15/17 17:51 Dose: Not Given Acetaminophen 1,000 mg/ Premix 100 mls @ 400 mls/hr IV Q6H [facility] Stop: 08/14/17 12:14 Last Admin: 08/14/17 13:06 Dose: 400 mls/hr Sodium Chloride (Normal Saline) 500 mls @ 500 mls/hr IV ASDIRECTED [facility] Stop: 08/14/17 18:31 Last Admin: 08/14/17 17:56 Dose: 500 mls/hr Ibuprofen (Motrin) 600 mg PO TID [facility] Last Admin: 08/17/17 14:04 Dose: 600 mg Ketamine HCl (Ketalar) 28 mg IV ONETIME ONE Stop: 08/13/17 10:16 Last Admin: 08/13/17 16:25 Dose: Not Given Ketorolac Tromethamine (Toradol) 30 mg IVPUSH Q8H [facility] Stop: 08/13/17 18:31 Last Admin: 08/13/17 16:48 Dose: Not Given Ketorolac Tromethamine (Toradol) 30 mg IVPUSH Q8H [facility] Stop: 08/14/17 00:01 Ketorolac Tromethamine (Toradol) 30 mg IVPUSH Q8H [facility] Stop: 08/14/17 00:01 Last Admin: 08/14/17 00:44 Dose: 30 mg Magnesium Hydroxide (Milk Of Magnesia) 30 ml PO BID PRN PRN Reason: Constipation Last Admin: 08/16/17 14:23 Dose: 30 ml Melatonin (Melatonin) 9 mg PO BEDTIME [facility] Last Admin: 08/16/17 20:17 Dose: 9 mg Naloxone HCl (Narcan) 0.2 mg IVPUSH ASDIRECTED PRN PRN Reason: Oversedation Stop: 08/13/17 23:00 Neostigmine Methylsulfate (Neostigmine) Confirm Administered Dose 5 mg .ROUTE .STK-MED ONE Stop: 08/13/17 13:07 Ondansetron HCl (Zofran) Confirm Administered Dose 4 mg .ROUTE .STK-MED ONE Stop: 08/13/17 08:19 Ondansetron HCl (Zofran) 8 mg IVPUSH Q4H PRN PRN Reason: Nausea/Vomiting Oxycodone HCl (Oxycodone) 5 - 10 mg PO Q4H PRN PRN Reason: Pain Last Admin: 08/17/17 14:04 Dose: 5 mg Oxycodone/Acetaminophen (Percocet 325-5 Mg) 1 tab PO Q4H PRN PRN Reason: Pain Last Admin: 08/14/17 06:14 Dose: 1 tab Povidone Iodine (Betadine 10% Soln) Confirm Administered Dose 1 ml .ROUTE .STK- MED ONE Stop: 08/13/17 07:01 Last Admin: 08/13/17 11:20 Dose: 30 ml Propofol (Diprivan 20 Ml) Confirm Administered Dose 400 mg .ROUTE .STK-MED ONE Stop: 08/13/17 08:19 Propofol (Diprivan 20 Ml) Confirm Administered Dose 400 mg .ROUTE .STK-MED ONE Stop: 08/13/17 11:04 Rocuronium Kermit (Zemuron) Confirm Administered Dose 50 mg .ROUTE .STK-MED ONE Stop: 08/13/17 08:19 Rocuronium Kermit (Zemuron) Confirm Administered Dose 50 mg .ROUTE .STK-MED ONE Stop: 08/13/17 12:48 Scopolamine (Transderm-Scop) 1.5 mg TOP Q72H [facility] Stop: 08/16/17 04:00 Last Admin: 08/13/17 08:42 Dose: 1.5 mg Senna (Senna) 8.6 mg PO BID PRN PRN Reason: Constipation Last Admin: 08/16/17 20:34 Dose: 8.6 mg Sodium Chloride (Saline Flush) 10 ml FLUSH ASDIRECTED PRN PRN Reason: Keep Vein Open Succinylcholine Chloride (Quelicin) Confirm Administered Dose 200 mg .ROUTE .STK -MED ONE Stop: 08/13/17 08:19 Thrombin (Thrombin-Jmi) Confirm Administered Dose 15,000 unit .ROUTE .STK-MED ONE Stop: 08/13/17 07:01 Last Admin: 08/13/17 11:19 Dose: 10,000 unit Zolpidem Tartrate (Ambien) 5 mg PO BEDTIME PRN PRN Reason: Sleep - Exam General: Reports: Alert, Oriented Back Exam: Reports: Normal Inspection Extremities: Normal Inspection, Normal Range of Motion, No Pedal Edema, Normal Capillary Refill Skin: Reports: Warm, Dry, Intact Wound/Incisions: Reports: Healing Well, Dressing Dry and Intact Neurological: Reports: No New Focal Deficit, Strength Equal Bilateral, Reflexes Equal Bilateral Psy/Mental Status: Reports: Alert *Q Meaningful Use (DIS) - VTE *Q VTE Criteria *Q: - Stroke *Q Stroke Criteria *Q: - AMI *Q AMI Criteria *Q:
== END 2017-08-17 14:32 | disposition home or self-care (01) | DRG 460 ==
LOC: JP.SDSSCHI 07:41 → JP.SDS 07:41 → EDSTATUS 12:00 → JP.MS 14:50
PROVIDERS: ADMIT Orthopaedic Surgery; ATTEND Orthopaedic Surgery
PROC: 0SG00K1 Fusion of Lumbar Vertebral Joint with Nonautologous Tissue Substitute, Posterior Approach, Posterior Column, Open Approach (ICD-10-PCS; principal; 2017-08-13)
PROC: 0QB00ZZ Excision of Lumbar Vertebra, Open Approach (ICD-10-PCS; 2017-08-13)
DX: M48.061 Spinal stenosis, lumbar region without neurogenic claudication (principal); M54.16 Radiculopathy, lumbar region; M43.16 Spondylolisthesis, lumbar region; R33.0 Drug induced retention of urine; T40.605A Adverse effect of unspecified narcotics, initial encounter; Y92.239 Unspecified place in hospital as the place of occurrence of the external cause; I48.0 Paroxysmal atrial fibrillation; F03.90 Unspecified dementia, unspecified severity, without behavioral disturbance, psychotic disturbance, mood disturbance, and anxiety; J44.9 Chronic obstructive pulmonary disease, unspecified; I25.2 Old myocardial infarction; Z95.5 Presence of coronary angioplasty implant and graft; Z95.0 Presence of cardiac pacemaker; G89.29 Other chronic pain; H54.7 Unspecified visual loss
CPT/HCPCS: 20930; 22633; 22634; 22840; 36415; 51702; 63047; 76000; 80048; 85025; 94640; 94762; 97110-GP; 97161-GP; 97165-GO; 97530-GP; A9270-GY; C1713; J0131; J0171; J0330; J0690; J0735; J1100; J1885; J2405; J2704; J2710; J2795; J3010; J7030; J7040; J7050; J7120; J7605

== ENCOUNTER 2017-09-21 09:55 | Inpatient (IN) | payer MEDICARE, BC ==
[2017-09-21] MEDS ORDERED: Lactated Ringers 1,000 ML IV SCH (10:30)
[2017-09-21] MEDS ORDERED: Ropivacaine 49.25 ML, Ketorolac 30 MG, EPINEPHrine 0.5 MG, cloNIDine 80 MCG, Sodium Chl... INJECT ONE ×5 (11:00)
[2017-09-21] MEDS ORDERED: Vancomycin 1 GM SDV ONE (11:04)
[2017-09-21] MEDS ORDERED: Succinylcholine 200 MG/10 ML MDV ONE (11:40)
[2017-09-21] MEDS ORDERED: Neostigmine Methylsulfate 1 MG/ML 5 ML Syringe ONE (11:40)
[2017-09-21] MEDS ORDERED: Rocuronium 50 MG/5 ML Vial ONE (11:40)
[2017-09-21] MEDS ORDERED: fentaNYL 250 MCG/5 ML SDV ONE (11:40)
[2017-09-21] MEDS ORDERED: Propofol 200 MG/20 ML SDV ONE (11:40)
[2017-09-21] MEDS ORDERED: Dexamethasone 4 MG/ML SDV ONE (11:40)
[2017-09-21] MEDS ORDERED: Ondansetron 4 MG/2 ML SDV ONE (11:40)
[2017-09-21] MEDS ORDERED: Glycopyrrolate 0.2 MG/ML 5 ML MDV ONE (11:40)
[2017-09-21] MEDS ORDERED: Povidone-Iodine 10% Soln 118.25 ML Bottle ONE (12:18)
[2017-09-21] MEDS ORDERED: fentaNYL 100 MCG/2 ML SDV ONE (13:29)
[2017-09-21] MEDS ORDERED: Ondansetron 4 MG/2 ML SDV IVPUSH PRN (15:18)
[2017-09-21] MEDS ORDERED: fentaNYL 100 MCG/2 ML SDV IVPUSH PRN (15:18)
[2017-09-21] MEDS ORDERED: Sodium Chloride 0.9% 10 ML Syringe IV SCH (15:30)
[2017-09-21] MEDS ORDERED: Sodium Chloride 0.9% 10 ML Syringe FLUSH PRN (15:40)
[2017-09-21] MEDS: ceFAZolin 1 GM in Premix Bag 1 BAG IV ONE (15:43)
[2017-09-21] MEDS: Acetaminophen/HYDROcodone 325-5 MG Tab PO PRN (17:15)
[2017-09-21] MEDS: Docusate Sodium 100 MG Cap PO SCH ×2 (20:10→20:21)
[2017-09-21] MEDS: Melatonin 3 MG Tab PO SCH (20:10)
[2017-09-22] MEDS: Docusate Sodium 100 MG Cap PO SCH ×3 (07:31→20:06)
[2017-09-22] MEDS: Acetaminophen/HYDROcodone 325-5 MG Tab PO PRN ×3 (07:32→18:41)
[2017-09-22] MEDS: ceFAZolin 1 GM in Premix Bag 1 BAG IV ONE (07:54)
[2017-09-22] MEDS ORDERED: Magnesium Hydroxide 400 MG/5 ML Susp 30 ML Cup PO PRN (08:42)
--- NOTE | 2017-09-22 10:07 | PCM.PN ---
- General Info Functional Status: Reports: Pain Controlled - Review of Systems General: Reports: No Symptoms HEENT: Reports: No Symptoms Pulmonary: Reports: No Symptoms Cardiovascular: Reports: No Symptoms Gastrointestinal: Reports: No Symptoms Genitourinary: Reports: No Symptoms Musculoskeletal: Reports: Back Pain Skin: Reports: No Symptoms Neurological: Reports: No Symptoms Psychiatric: Reports: Confusion - Patient Data Vitals - Most Recent: Last Vital Signs Temp 96.6 F 09/22/17 07:21 Pulse 61 09/22/17 07:21 Resp 20 09/22/17 07:21 BP 99/46 L 09/22/17 07:21 Pulse Ox 98 09/22/17 07:21 Weight - Most Recent: 149 lb 8 oz I&O - Last 24 Hours: Intake & Output 09/21/17 09/22/17 09/22/17 22:59 06:59 14:59 Intake Total 300 350 120 Output Total 255 500 Balance 45 -150 120 Lab Results Last 24 Hours: Laboratory Results - last 24 hr 09/21/17 09/21/17 Range/Units 10:05 10:05 WBC 10.6 (4.5-11.0) K/uL RBC 4.11 (3.30-5.50) M/uL Hgb 11.9 L (12.0-15.0) g/dL Hct 37.3 (36.0-48.0) % MCV 91 (80-98) fL MCH 29 (27-31) pg MCHC 32 (32-36) % Plt Count 109 L (150-400) K/uL Sodium 137 L (140-148) mmol/L Potassium 4.4 (3.6-5.2) mmol/L Chloride 102 (100-108) mmol/L Carbon Dioxide 25 (21-32) mmol/L Anion Gap 10.0 (5.0-14.0) mmol/L BUN 22 H (7-18) mg/dL Creatinine 1.2 H (0.6-1.0) mg/dL Est Cr Clr Drug Dosing TNP Estimated GFR (MDRD) 43 L (>60) Glucose 91 (74-106) mg/dL Calcium 9.2 (8.5-10.1) mg/dL Total Bilirubin 0.4 (0.2-1.0) mg/dL AST 28 (15-37) U/L ALT 27 (12-78) U/L Alkaline Phosphatase 123 H (46-116) U/L Total Protein 7.3 (6.4-8.2) g/dL Albumin 2.7 L (3.4-5.0) g/dL Globulin 4.6 H (2.3-3.5) g/dL Albumin/Globulin Ratio 0.6 L (1.2-2.2) Cornelius Results Last 24 Hours: Microbiology 09/21/17 15:36 Gram Stain - Final Lumbar Sac Fluid - Back, Lower Wound Culture - Preliminary Med Orders - Current: Current Medications Hydrocodone Bitart/Acetaminophen ([place] 325-5 Mg) 1 - 2 tab PO Q4H PRN PRN Reason: PAIN Last Admin: 09/22/17 07:32 Dose: 2 tab Docusate Sodium (Colace) 100 mg PO BID [facility] Last Admin: 09/22/17 09:14 Dose: Not Given Fentanyl (Sublimaze) 50 mcg IVPUSH Q1H PRN PRN Reason: PAIN Last Admin: 09/22/17 09:58 Dose: 50 mcg Magnesium Hydroxide (Milk Of Magnesia) 30 ml PO BID PRN PRN Reason: Constipation Melatonin (Melatonin) 9 mg PO BEDTIME [facility] Last Admin: 09/21/17 20:10 Dose: 9 mg Ondansetron HCl (Zofran) 4 mg IVPUSH Q8H PRN PRN Reason: NAUSEA Last Admin: 09/22/17 09:57 Dose: 4 mg Sodium Chloride (Saline Flush) 10 ml IV ASDIRECTED [facility] Sodium Chloride (Saline Flush) 10 ml FLUSH ASDIRECTED PRN PRN Reason: Keep Vein Open Discontinued Medications Dexamethasone (Dexamethasone) Confirm Administered Dose 4 mg .ROUTE .STK-MED ONE Stop: 09/21/17 11:41 Fentanyl (Sublimaze) Confirm Administered Dose 250 mcg .ROUTE .STK-MED ONE Stop: 09/21/17 11:41 Fentanyl (Sublimaze) Confirm Administered Dose 100 mcg .ROUTE .STK-MED ONE Stop: 09/21/17 13:30 Last Admin: 09/21/17 16:04 Dose: Not Given Glycopyrrolate (Robinul) Confirm Administered Dose 1 mg .ROUTE .STK-MED ONE Stop: 09/21/17 11:41 Cefazolin Sodium/Dextrose 1 gm (/ Premix) 50 mls @ 100 mls/hr IV ONETIME ONE Stop: 09/21/17 11:29 Last Admin: 09/22/17 07:54 Dose: 100 mls/hr Lactated Ringer's (Ringers, Lactated) 1,000 mls @ 100 mls/hr IV ASDIRECTED [facility] Neostigmine Methylsulfate (Neostigmine) Confirm Administered Dose 5 mg .ROUTE .STK-MED ONE Stop: 09/21/17 11:41 Ondansetron HCl (Zofran) Confirm Administered Dose 4 mg .ROUTE .STK-MED ONE Stop: 09/21/17 11:41 Povidone Iodine (Betadine 10% Soln) Confirm Administered Dose 1 ml .ROUTE .STK- MED ONE Stop: 09/21/17 12:19 Propofol (Diprivan 20 Ml) Confirm Administered Dose 200 mg .ROUTE .STK-MED ONE Stop: 09/21/17 11:41 Rocuronium [place] (Zemuron) Confirm Administered Dose 50 mg .ROUTE .STK-MED ONE Stop: 09/21/17 11:41 Succinylcholine Chloride (Quelicin) Confirm Administered Dose 200 mg .ROUTE .STK -MED ONE Stop: 09/21/17 11:41 Vancomycin HCl (Vancomycin) Confirm Administered Dose 1 gm .ROUTE .STK-MED ONE Stop: 09/21/17 11:05 - Exam General: Alert, Oriented HEENT: EOMI, Mucous Membr. Moist/[place] Neck: Supple Lungs: Normal Respiratory Effort (Female) Exam: Normal Bimanual Exam Back Exam: Paraspinal Tenderness Extremities: Normal Inspection, Normal Range of Motion, No Pedal Edema, Normal Capillary Refill Skin: Warm, Dry, Intact Wound/Incisions: Dressing Dry and Intact, Drainage Neurological: No New Focal Deficit Psy/Mental Status: Alert, Normal Affect, Normal Mood - Problem List & Annotations (1) Lumbar radiculopathy SNOMED Code(s): 477697989 Code(s): M54.16 - RADICULOPATHY, LUMBAR REGION Status: Acute Current Visit: No (2) Status post lumbar laminectomy SNOMED Code(s): 08457751375829037, 48683207858276437 Code(s): Z98.890 - OTHER SPECIFIED POSTPROCEDURAL STATES Status: Chronic Current Visit: No Annotation/Comment:: L2 - L5 - Problem List Review Problem List Initiated/Reviewed/Updated: Yes - My Orders Last 24 Hours: My Active Orders 09/21/17 10:30 Incentive Spirometry [RT Incentive Spirometry] [RC] ASDIRECTED SCD [Sequential Compression Device] [OM.PC] Routine 09/21/17 15:36 CULTURE ANAEROBIC [RM] Routine CULTURE WOUND + SMEAR [RM] Routine 09/22/17 08:42 Magnesium Hydroxide [Milk of Magnesia] 30 ml PO BID PRN - Plan Plan:: I evaluated the patient's brain her hospital room. Her sister was there during the examination. The patientis still confused but less confused and she was during her previous hospital stay on postoperative day 1. She has the wound VAC on. She states that the pain is better her back. She denies any fevers or chills. Physical examination: The VAC is on and and good placement. There is been minimal drainage since yesterday. No new erythema or purulence is noted. Plan: We'll keep the VAC on and plan on discharging back to the extended care facility tomorrow. Wound dressing changes will be done every 3 days. Will await culture results.
[2017-09-22] MEDS ORDERED: ceFAZolin 1 GM in Premix Bag 1 BAG IV SCH (12:00)
[2017-09-22] MEDS ORDERED: Vancomycin 1 GM SDV IV SCH (13:00)
[2017-09-22] MEDS: Melatonin 3 MG Tab PO SCH (20:07)
[2017-09-23] MEDS: Acetaminophen/HYDROcodone 325-5 MG Tab PO PRN (03:43)
[2017-09-23 07:03] VITALS: BP 105/58
[2017-09-23] MEDS: Docusate Sodium 100 MG Cap PO SCH (08:44)
[2017-09-23] MEDS ORDERED: Sodium Phosphate,Monobasic/Sodium Phosphate,Dibasic Enema 133 ML Bottle RECTAL ONE (09:00)
[2017-09-23] MEDS ORDERED: Bisacodyl 10 MG Supp RECTAL ONE (09:00)
--- NOTE | 2017-09-23 09:13 | CR ---
Chest 1V Frontal HISTORY: PICC pine placement COMPARISON: 11/27/2016 FINDINGS: Portable chest, 1655 hours and 1706 hours. PICC line has been placed from a left brachial approach. On the first image, the tip is malpositioned overlying the medial subclavian region. On the second image the tip is just entering the superior ve na cava. The junction with the left innominate vein. There is no pneumothorax or mediastinal widening . No acute infiltrate is identified. Lungs appear mildly hyperinflated. Cardiomediastinal silhouette is within normal limits and stable. Atherosclerotic aorta is redemonstrated. Pacemaker generator overli es the left upper chest. Atrial and ventricular lead wires appear intact and stable. IMPRESSION: 1. Malpositioned PICC line. The tip overlies the subclavian region near the medial aspect of the left clavicle on the first image and appears to be just entering the superior vena cava on the second gina ge. This could be advanced another approximately 8 cm for better positioning. 2. Stable pacemaker and lead wires. 3. Mild hyperinflation. No other acute chest abnormality is identified.
--- NOTE | 2017-10-11 17:06 | OR ---
DATE OF PROCEDURE: 09/23/2017 PREOPERATIVE DIAGNOSIS: Lumbar infection after fusion. POSTOPERATIVE DIAGNOSIS: Lumbar infection after fusion. PROCEDURE: 1. Irrigation, debridement of subcutaneous tissues, deep fascia, muscle, and hardware. 2. Wound VAC placement with less than 50 cm2. SYSTEM SOFTWARE PROGRAMMER: JESSICA Casas. Physician first assistant, Kisha Skaggs NP, played an essential role in assisting in this case, helping to position the patient, retract structures as needed, as well as suturing and cutting sutures as indicated. Her presence improved patient's safety and decreased operative time. ANESTHESIA: General endotracheal intubation. FLUID: Lactated Ringer solution. ESTIMATED BLOOD LOSS: Less than 100 mL. COMPLICATIONS: None. SPECIMEN: None. SPECIMEN: Anaerobic and aerobic cultures. DISCHARGE DISPOSITION: Stable to PACU. HISTORY AND INDICATIONS FOR THE PROCEDURE: The patient previously had a lumbar fusion. She had a superficial infection. She was being treated by Dr. Linares. At that point in time, he was worried that she was having neurologic complications. We then set her up for irrigation and debridement. She was seen preoperatively in the preop holding area. All motor function was intact, although she was unable to stand on the right lower extremity and this was unchanged compared to previous examination. Risks and benefits of the procedure were explained to the patient. Informed consent was obtained. DETAILS OF PROCEDURE: The patient was seen preoperatively by myself, the anesthesia staff in the preop holding area where the operative site was marked. She was brought to the operative suite by the anesthesia staff where general anesthesia was administered. She was then placed into a prone position on the Armen table. All extremities found to be well padded. The patient was then prepped and draped in sterile manner. Time-out was called identifying the correct patient, correct procedure, the correct site, and antibiotics had begun within an appropriate period of time. An incision was made over the previous incision and then bleeding during the case was controlled with Bovie electrocautery. We then saw that the infection had gone to the deep fascia and the hardware was exposed. I then copiously irrigated with 3 L of irrigation and then irrigated with 1 L of back pressure, followed by another liter of irrigation. Before I had applied the back pressure, but after the first irrigation, I had taken aerobic and anaerobic cultures. I also scraped much of the tissue off with curettes as well as with lap pads. We then closed the deep fascial layer with #1 Stratafix followed by #2 Stratafix, followed by 3-0 Stratafix. I did leave the area open superficially and applied a wound VAC. The patient was then flipped back into a supine position and allowed to awaken from general anesthesia and taken to the PACU in stable condition. Gael Zapata DO /[id number]
--- NOTE | 2017-10-14 12:56 | PCM.DCSUM1 ---
Discharge Summary - Hospital Course Free Text/Narrative:: Jessie is status postop day 2 of I&D of the lumbar spine. She is doing very well. Patient continues to have improvement with pain. She is ambulating with a walker at this time. - Discharge Data Discharge Date: 10/24/17 Discharge Disposition: DC/Tfer to SNF 03 Condition: Good - Patient Instructions Diet: Usual Diet as Tolerated Activity: Apply Ice, As Tolerated Driving: Do Not Drive Showering/Bathing: May Shower, No Tub Bathing/Swimming Wound/Incision Care: Keep Operative Site/Wound Site Clean and Dry, Change Dressing Daily Notify Provider of: Fever, Increased Pain, Swelling and Redness, Drainage, Nausea and/or Vomiting - Discharge Plan Prescriptions/Med Rec: Acetaminophen/HYDROcodone [[place] 325-5 MG] 1 - 2 tab PO Q4H PRN #90 tablet PRN Reason: PAIN Home Medications: Home Meds Amiodarone HCl 200 mg PO DAILY 04/02/17 [History] Naproxen Sodium [Aleve] 220 mg PO TID PRN 07/19/17 [History] Arformoterol [Brovana] 15 mcg INH Q12HR 08/13/17 [History] Gabapentin [Neurontin] 300 mg PO TID #180 cap 08/17/17 [Rx] Acetaminophen [Tylenol] 650 mg PO Q4H PRN 09/06/17 [History] Loperamide [Imodium AD] 2 mg PO DAILY PRN 09/06/17 [History] Sulfamethoxazole/Trimethoprim [Septra DS] 1 tab PO Q12HR 14 Days tablet [Rx] Acetaminophen/HYDROcodone [[place] 325-5 MG] 1 tab PO Q6HR PRN 09/13/17 [History] traMADol [Ultram] 1 - 2 tab PO Q6HR PRN 09/13/17 [History] Acetaminophen/HYDROcodone [[place] 325-5 MG] 1 - 2 tab PO Q4H PRN #90 tablet 09/23 [Rx] Patient Handouts: PICC Insertion, Care After, PICC Insertion, PICC Home Guide Referrals: Kisha Skaggs, [employer] [Nurse Practitioner] - (2 week follow up) - Discharge Summary/Plan Comment DC Time >30 min.: Yes Discharge Summary/Plan Comment: at this time we'll plan to discharge her back to [facility] on IV antibiotics. She will follow-up with us in 3 weeks. She will follow-up with Dr. Linares for wound management. - Patient Data Vitals - Most Recent: Last Vital Signs Temp 36.2 C 09/23/17 06:58 Pulse 75 09/23/17 06:58 Resp 17 09/23/17 06:58 BP 105/58 L 09/23/17 06:58 Pulse Ox 100 09/23/17 06:58 Weight - Most Recent: 149 lb 7.998 oz Med Orders - Current: Current Medications Discontinued Medications Hydrocodone Bitart/Acetaminophen ([place] 325-5 Mg) 1 - 2 tab PO Q4H PRN PRN Reason: PAIN Last Admin: 09/23/17 03:43 Dose: 1 tab Bisacodyl (Dulcolax) 10 mg RECTAL ONETIME ONE Stop: 09/23/17 09:01 Last Admin: 09/23/17 08:44 Dose: Not Given Dexamethasone (Dexamethasone) Confirm Administered Dose 4 mg .ROUTE .STK-MED ONE Stop: 09/21/17 11:41 Docusate Sodium (Colace) 100 mg PO BID NOEMI Last Admin: 09/23/17 08:44 Dose: Not Given Fentanyl (Sublimaze) Confirm Administered Dose 250 mcg .ROUTE .STK-MED ONE Stop: 09/21/17 11:41 Fentanyl (Sublimaze) 50 mcg IVPUSH Q1H PRN PRN Reason: PAIN Last Admin: 09/22/17 09:58 Dose: 50 mcg Fentanyl (Sublimaze) Confirm Administered Dose 100 mcg .ROUTE .STK-MED ONE Stop: 09/21/17 13:30 Last Admin: 09/21/17 16:04 Dose: Not Given Glycopyrrolate (Robinul) Confirm Administered Dose 1 mg .ROUTE .STK-MED ONE Stop: 09/21/17 11:41 Cefazolin Sodium/Dextrose 1 gm (/ Premix) 50 mls @ 100 mls/hr IV ONETIME ONE Stop: 09/21/17 11:29 Last Admin: 09/22/17 07:54 Dose: 100 mls/hr Lactated Ringer's (Ringers, Lactated) 1,000 mls @ 100 mls/hr IV ASDIRECTED [facility] Cefazolin Sodium/Dextrose 1 gm (/ Premix) 50 mls @ 100 mls/hr IV Q8H [facility] Last Admin: 09/22/17 13:36 Dose: Not Given Vancomycin HCl 1 gm/ Sodium (Chloride) 250 mls @ 250 mls/hr IV Q24H [facility] Last Admin: 09/22/17 14:38 Dose: 250 mls/hr Magnesium Hydroxide (Milk Of Magnesia) 30 ml PO BID PRN PRN Reason: Constipation Last Admin: 09/22/17 18:38 Dose: 30 ml Melatonin (Melatonin) 9 mg PO BEDTIME [facility] Last Admin: 09/22/17 20:07 Dose: 9 mg Neostigmine Methylsulfate (Neostigmine) Confirm Administered Dose 5 mg .ROUTE .STK-MED ONE Stop: 09/21/17 11:41 Ondansetron HCl (Zofran) Confirm Administered Dose 4 mg .ROUTE .STK-MED ONE Stop: 09/21/17 11:41 Ondansetron HCl (Zofran) 4 mg IVPUSH Q8H PRN PRN Reason: NAUSEA Last Admin: 09/22/17 09:57 Dose: 4 mg Povidone Iodine (Betadine 10% Soln) Confirm Administered Dose 1 ml .ROUTE .STK- MED ONE Stop: 09/21/17 12:19 Propofol (Diprivan 20 Ml) Confirm Administered Dose 200 mg .ROUTE .STK-MED ONE Stop: 09/21/17 11:41 Rocuronium [place] (Zemuron) Confirm Administered Dose 50 mg .ROUTE .STK-MED ONE Stop: 09/21/17 11:41 Sodium Biphosphate/Sodium Phosphate (Fleet Enema) 133 ml RECTAL ONETIME ONE Stop: 09/23/17 09:01 Last Admin: 09/23/17 08:03 Dose: 133 ml Sodium Chloride (Saline Flush) 10 ml FLUSH ASDIRECTED PRN PRN Reason: Keep Vein Open Succinylcholine Chloride (Quelicin) Confirm Administered Dose 200 mg .ROUTE .STK -MED ONE Stop: 09/21/17 11:41 Vancomycin HCl (Vancomycin) Confirm Administered Dose 1 gm .ROUTE .STK-MED ONE Stop: 09/21/17 11:05 Vancomycin HCl (Vancomycin) 1 gm IV .PHARMACY TO DOSE [facility] Stop: 09/22/17 17:00 *Q Meaningful Use (DIS) - VTE *Q VTE Criteria *Q: - Stroke *Q Stroke Criteria *Q: - AMI *Q AMI Criteria *Q:
== END 2017-09-23 11:00 | DRG 858 ==
LOC: JP.MS 09:55 → EDSTATUS 11:30 → JP.SDS 14:08 → JP.MS 14:30
PROVIDERS: ADMIT Orthopaedic Surgery; ATTEND Orthopaedic Surgery
PROC: 0KDG0ZZ Extraction of Left Trunk Muscle, Open Approach (ICD-10-PCS; 2017-09-21)
PROC: 0KD Muscles, Extraction (ICD-10-PCS; 2017-09-21)
PROC: 2W15X6Z Compression of Back using Pressure Dressing (ICD-10-PCS; 2017-09-21)
PROC: 02HV33Z Insertion of Infusion Device into Superior Vena Cava, Percutaneous Approach (ICD-10-PCS; principal; 2017-09-23)
DX: T81.4XXA Infection following a procedure, initial encounter (principal); M54.16 Radiculopathy, lumbar region; Z98.890 Other specified postprocedural states; G47.30 Sleep apnea, unspecified; Z99.81 Dependence on supplemental oxygen; M54.9 Dorsalgia, unspecified; G89.29 Other chronic pain; Z98.1 Arthrodesis status; Z95.5 Presence of coronary angioplasty implant and graft; Z95.0 Presence of cardiac pacemaker; I25.2 Old myocardial infarction; H54.7 Unspecified visual loss; Z87.891 Personal history of nicotine dependence; Z88.5 Allergy status to narcotic agent; B95.62 Methicillin resistant Staphylococcus aureus infection as the cause of diseases classified elsewhere
CPT/HCPCS: 36415; 71010; 71010-26; 80053; 85027; 86850; 86900; 86901; 87070; 87075; 87077; 87186; 87205; 94762; 97605; A9270-GY; J0330; J0690; J1100; J2405; J2704; J2710; J3010; J3370; J7050

== ENCOUNTER 2017-10-16 10:08 | Emergency (ER) | payer MEDICARE, BC ==
[2017-10-16 10:30] VITALS: BP 164/88
[2017-10-16] MEDS ORDERED: HYDROmorphone 1 MG/ML Syringe IM ONE (10:50)
--- NOTE | 2017-10-16 10:56 | EDM.PDOC ---
ED HPI GENERAL MEDICAL PROBLEM - General Chief Complaint: Back Pain or Injury Stated Complaint: PAIN; CAN'T WALK Time Seen by Provider: 10/16/17 10:43 Source of Information: Reports: Patient, Old Records, RN Notes Reviewed History Limitations: Reports: No Limitations - History of Present Illness INITIAL COMMENTS - FREE TEXT/NARRATIVE: 81-year-old female presents emergency department today with complaint of low back pain she recently had laminectomy revision first part of August has had complications with an infection requiring incision and drainage in that area is currently using a wound VAC has been using hydrocodone for pain, states her pain is so intense that she has difficulty ambulating she was able to transfer with assist of 1, denies any fevers nausea vomiting or shortness of breath Lower Back Pain Score (Numeric/FACES): 10 - Related Data Allergies Allergy/AdvReac Type Severity Reaction Status Date / Time oxycodone AdvReac Disorientat Verified 10/16/17 10:48 ion Home Meds: Home Meds Amiodarone HCl 200 mg PO DAILY 04/02/17 [History] Naproxen Sodium [Aleve] 220 mg PO TID PRN 07/19/17 [History] Arformoterol [Brovana] 15 mcg INH Q12HR 08/13/17 [History] Gabapentin [Neurontin] 300 mg PO TID #180 cap 08/17/17 [Rx] Acetaminophen [Tylenol] 650 mg PO Q4H PRN 09/06/17 [History] Loperamide [Imodium AD] 2 mg PO DAILY PRN 09/06/17 [History] Acetaminophen/HYDROcodone [[place] 325-5 MG] 1 - 2 tab PO Q4H PRN #90 tablet 09/23 [Rx] Multivitamin [Multi-Vitamin Daily] 1 each PO DAILY 10/16/17 [History] Past Medical History HEENT History: Reports: Cataract, Impaired Vision Cardiovascular History: Reports: Arrhythmia, CAD, High Cholesterol, [place], Pacemaker, Stents Respiratory History: Reports: COPD, Sleep Apnea, Other (See Below) Other Respiratory History: uses home O2 at night Gastrointestinal History: Reports: Cholelithiasis Genitourinary History: Reports: Urinary Incontinence 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 s/p lumbar fusion. Endocrine/Metabolic History: Reports: Other (See Below) Other Endocrine/Metabolic History: hypoglycemia - Infectious Disease History Infectious Disease History: Reports: MRSA - Past Surgical History HEENT Surgical History: Reports: Cataract Surgery Cardiovascular Surgical History: Reports: Coronary Artery Stent, Pacer GI Surgical History: Reports: Appendectomy, Cholecystectomy, Colonoscopy Female Surgical History: Reports: Hysterectomy, Salpingo-Oophorectomy Neurological Surgical History: Reports: Lumbar Spine Other Neurological Surgeries/Procedures: back surgery x 3 Social & Family History - Family History Family Medical History: Noncontributory - Tobacco Use Smoking Status *Q: Former Smoker Years of Tobacco use: 60 Packs/Tins Daily: 1 Used Tobacco, but Quit: Yes Month Tobacco Last Used: 10 YEARS AGO Second Hand Smoke Exposure: No - Caffeine Use Caffeine Use: Reports: Coffee - Recreational Drug Use Recreational Drug Use: No ED ROS GENERAL - Review of Systems Review Of Systems: See Below Constitutional: Reports: No Symptoms HEENT: Reports: No Symptoms Respiratory: Reports: No Symptoms Cardiovascular: Reports: Dyspnea on Exertion GI/Abdominal: Reports: No Symptoms : Reports: No Symptoms Musculoskeletal: Reports: Back Pain Skin: Reports: No Symptoms Neurological: Reports: No Symptoms ED EXAM,LOWER BACK PAIN/INJURY - Physical Exam Exam: See Below Text/Narrative:: Power is 5 x 5 with dorsiflexion and plantar flexion both extremities she can move her lower extremities however she does elicit significant pain with flexion and extension at the hip difficult to pinpoint specific tenderness as she is tender to palpation to both hip and low back area, sensation is intact Exam Limited By: No Limitations General Appearance: Alert, Mild Distress Respiratory/Chest: No Respiratory Distress Course - Vital Signs Last Recorded V/S: Last Vital Signs Temp 98.8 F 10/16/17 10:28 Pulse 90 10/16/17 10:28 Resp 22 H 10/16/17 10:28 BP 164/88 H 10/16/17 10:28 Pulse Ox 96 10/16/17 10:28 - Orders/Labs/Meds Labs: Laboratory Tests 10/16/17 10/16/17 Range/Units 11:00 11:00 WBC 11.6 H (4.5-11.0) K/uL RBC 3.64 (3.30-5.50) M/uL Hgb 10.5 L (12.0-15.0) g/dL Hct 32.9 L (36.0-48.0) % MCV 90 (80-98) fL MCH 29 (27-31) pg MCHC 32 (32-36) % Plt Count 351 (150-400) K/uL Neut % (Auto) 69 H (36-66) % Lymph % (Auto) 13 L (24-44) % [place] % (Auto) 17 H (2-6) % Eos % (Auto) 1 L (2-4) % Baso % (Auto) 1 (0-1) % Sodium 140 (140-148) mmol/L Potassium 3.3 L (3.6-5.2) mmol/L Chloride 103 (100-108) mmol/L Carbon Dioxide 27 (21-32) mmol/L Anion Gap 13.3 (5.0-14.0) mmol/L BUN 11 (7-18) mg/dL Creatinine 0.8 (0.6-1.0) mg/dL Est Cr Clr Drug Dosing 49.63 mL/min Estimated GFR (MDRD) > 60 (>60) Glucose 96 (74-106) mg/dL Calcium 8.2 L (8.5-10.1) mg/dL Total Bilirubin 0.8 D (0.2-1.0) mg/dL AST 21 (15-37) U/L ALT 20 (12-78) U/L Alkaline Phosphatase 137 H (46-116) U/L Total Protein 6.2 L (6.4-8.2) g/dL Albumin 2.8 L (3.4-5.0) g/dL Globulin 3.4 (2.3-3.5) g/dL Albumin/Globulin Ratio 0.8 L (1.2-2.2) Meds: Medications Discontinued Medications Generic Name Dose Route Start Last Admin Trade Name Freq PRN Reason Stop Dose Admin Hydromorphone HCl 0.5 mg 10/16/17 10:50 10/16/17 11:11 Dilaudid IM 10/16/17 10:51 0.5 mg ONETIME ONE Administration Departure - Departure Time of Disposition: 11:50 Disposition: Home, Self-Care 01 Condition: Fair Clinical Impression: Spinal stenosis of lumbar region Qualifiers: Neurogenic claudication status: without neurogenic claudication Qualified Code( s): M48.061 - Spinal stenosis, lumbar region without neurogenic claudication - Discharge Information Referrals: Fracisco Brownlee Sr, MD [Primary Care Provider] - Forms: ED Department Discharge Additional Instructions: Take the tramadol 50 mg 1 tablet every 6 hours as needed for pain in combination with your Vicodin, please keep your follow-up appointment with Dr. Zapata orthopedic surgery, call return to the emergency department worsening of symptoms - Assessment/Plan Plan: Assessment Acuity = chronic Site and laterality = low back pain Etiology = lumbar stenosis Manifestations = none Location of injury = Home Lab values = WBC elevated 11.6 consistent with leukocytosis hemoglobin low at 10.5 consistent normochromic anemia potassium low at 3.3 consistent hypokalemia albumin low at 2.8 consistent hypoalbuminemia Plan She had good relief with the Dilaudid provided for pain control called discussed case with Dr. Zapata orthopedics recommended addition of tramadol for pain control in combination with hydrocodone and she will follow-up with him, plan is to discharge back to the [facility], tramadol 50 mg 1 tab by mouth every 6 hours when necessary total #15 tablets This note was dictated using [employer] voice recognition software please call with any questions on syntax or luke.
== END 2017-10-16 12:40 | disposition home or self-care (01) ==
LOC: JP.ED 10:08
DX: M48.061 Spinal stenosis, lumbar region without neurogenic claudication (principal); Z88.6 Allergy status to analgesic agent; Z79.899 Other long term (current) drug therapy; E78.00 Pure hypercholesterolemia, unspecified; Z87.891 Personal history of nicotine dependence
CPT/HCPCS: 36415; 80053; 85025; 96372; 99284; J1170; 99283

== ENCOUNTER 2017-11-05 10:39 | Inpatient (IN) | payer MEDICARE, BC ==
[2017-11-05] MEDS ORDERED: Acetaminophen/HYDROcodone 325-5 MG Tab PO ONE (11:24)
--- NOTE | 2017-11-05 11:33 | EDM.PDOC ---
ED HPI GENERAL MEDICAL PROBLEM - General Chief Complaint: Skin Complaint Stated Complaint: SWELLING & PAIN IN LT ARM Time Seen by Provider: 11/05/17 11:15 Source of Information: Reports: Patient, Old Records History Limitations: Reports: No Limitations - History of Present Illness INITIAL COMMENTS - FREE TEXT/NARRATIVE: 81 yo female presents with L elbow region pain and swelling and increased warmth. Denies injury. Says Dr. Brownlee saw her for this and ordered an X-ray that was negative except for soft tissue swelling. Dr. Brownlee has been treating her with oral Zyvox x 3 days with worsening of the elbow over that interval. There has not been a fever. There is no hx of gout. Pain is increased with movement of that joint. Is a resident at a local [facility], does not have dementia. Is being followed by Dr. Linares for a wound on her back that is doing well after back surgery by Dr. Dakota Zapata. Onset: Gradual Onset Date: 10/31/17 Duration: Day(s):, Getting Worse Location: Reports: Upper Extremity, Left Quality: Reports: Ache Severity: Moderate Improves with: Reports: Rest Worsens with: Reports: Movement Context: Reports: Other (unknown). Denies: Trauma Associated Symptoms: Reports: No Other Symptoms. 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: Reports: Acetaminophen, Other (see below) (Oral Zyvox) Left Arm Pain Score (Numeric/FACES): 10 - Related Data Allergies Allergy/AdvReac Type Severity Reaction Status Date / Time No Known Allergies Allergy Verified 11/05/17 10:55 Home Meds: Home Meds Amiodarone HCl 200 mg PO DAILY 04/02/17 [History] Acetaminophen [Tylenol] 650 mg PO Q4H PRN 09/06/17 [History] *Prostat 11/05/17 [History] Acetaminophen/oxyCODONE [Percocet 325-5 MG] 5 - 325 mg PO Q4HR PRN 11/05/17 [ History] Arformoterol [Brovana] 1 ampule IH BID 11/05/17 [History] Gabapentin [Neurontin] 300 mg PO TID 11/05/17 [History] Lactobacillus Acidophilus [Probiotic] 2 cap PO BID 11/05/17 [History] Linezolid [Zyvox] 600 mg PO BID 11/05/17 [History] Loperamide [Imodium AD] 2 mg PO DAILY PRN 11/05/17 [History] Metronidazole [IJD: metroNIDAZOLE] 500 mg PO TID 11/05/17 [History] Multivitamin Plus Zinc 1 cap PO DAILY 11/05/17 [History] Naproxen Sodium 220 mg PO TID PRN 11/05/17 [History] traMADol HCl [Tramadol HCl] 50 mg PO Q4HR PRN 11/05/17 [History] Past Medical History HEENT History: Reports: Cataract, Impaired Vision Cardiovascular History: Reports: Arrhythmia, CAD, High Cholesterol, [place], Pacemaker, Stents Respiratory History: Reports: COPD, Sleep Apnea, Other (See Below) Other Respiratory History: uses home O2 at night Gastrointestinal History: Reports: Cholelithiasis Genitourinary History: Reports: Urinary Incontinence [employer]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 s/p lumbar fusion. Endocrine/Metabolic History: Reports: Other (See Below) Other Endocrine/Metabolic History: hypoglycemia - Infectious Disease History Infectious Disease History: Reports: MRSA - Past Surgical History HEENT Surgical History: Reports: Cataract Surgery GI Surgical History: Reports: Appendectomy, Cholecystectomy, Colonoscopy Female Surgical History: Reports: Hysterectomy, Salpingo-Oophorectomy Neurological Surgical History: Reports: Lumbar Spine Social & Family History - Family History Family Medical History: Noncontributory - Tobacco Use Smoking Status *Q: Unknown Ever Smoked Years of Tobacco use: 60 Packs/Tins Daily: 1 Used Tobacco, but Quit: Yes Month Tobacco Last Used: 10 YEARS AGO Second Hand Smoke Exposure: No - Caffeine Use Caffeine Use: Reports: Coffee - Recreational Drug Use Recreational Drug Use: No Review of Systems - Review of Systems Review Of Systems: See Below Constitutional: Reports: No Symptoms Eyes: Reports: No Symptoms Ears: Reports: No Symptoms Nose: Reports: No Symptoms Mouth/Throat: Reports: No Symptoms Respiratory: Reports: No Symptoms Cardiovascular: Reports: No Symptoms GI/Abdominal: Reports: No Symptoms Genitourinary: Reports: No Symptoms Musculoskeletal: Reports: Joint Pain ( L elbow pain and swelling) Skin: Reports: Change in Color (slight erythema of the L elbow region) Neurological: Reports: No Symptoms ED EXAM, GENERAL - Physical Exam Exam: See Below Exam Limited By: No Limitations General Appearance: Alert, WD/WN, No Apparent Distress Eye Exam: Bilateral Eye: Normal Inspection Ears: Normal External Exam, Normal Canal, Hearing Grossly Normal, Normal TMs Ear Exam: Bilateral Ear: Auricle Normal, Canal Normal Nose: Normal Inspection, Normal Mucosa, No Blood Throat/Mouth: Normal Inspection, Normal Lips, Normal Voice, No Airway Compromise Head: Atraumatic, Normocephalic Neck: Normal Inspection, Supple Respiratory/Chest: No Respiratory Distress, Lungs Clear, Normal Breath Sounds, No Accessory Muscle Use Cardiovascular: Regular Rate, Rhythm, No Edema GI/Abdominal: Normal Bowel Sounds, Soft, Non-Tender, No Distention Back Exam: Normal Inspection. No: CVA Tenderness (R), CVA Tenderness (L) Extremities: Joint Swelling (L elbow region is quite swollen and shows early erythema. Very tender to touch. ROM limited due to pain. ), Arm Pain (L elbow region.), Limited Range of Motion (L elbow ROM is only about 10-15 degrees due to pain.), Increased Warmth (L elbow region.), Redness (slight to L elbow region.) Neurological: Alert, Oriented, CN II-XII Intact, Normal Cognition Psychiatric: Normal Affect, Normal Mood Skin Exam: Warm, Dry, Intact, No Rash, Erythema (slight to L elbow region, skin intact. ). No: Lymphangitis, Mottled, Petechiae, Rash, Wound/Incision Lymphatic: No Adenopathy Course - Vital Signs Text/Narrative:: Discussed with radiology, will attempt elbow jt aspiration for culture. Dr. Brownlee aware, will admit for IV antibiotics Last Recorded V/S: Last Vital Signs Temp 35.7 C 11/05/17 10:55 Pulse 84 11/05/17 10:55 Resp 20 11/05/17 10:55 BP 142/64 H 11/05/17 10:55 Pulse Ox 97 11/05/17 10:55 - Orders/Labs/Meds Orders: Active Orders 24 hr Category Date Time Status Elbow 2V Lt [CR] Stat Exams 11/05/17 11:48 Taken NS + KCl 20mEq/L [Normal Saline with 20 mEq KCl] 1,000 Med 11/05/17 12:15 Active ml IV ASDIRECTED Sodium Chloride 0.9% [Saline Flush] Med 11/05/17 11:48 Active 10 ml FLUSH ASDIRECTED PRN Saline Lock Insert [OM.PC] Routine Oth 11/05/17 11:48 Ordered Medication Orders Potassium Chloride/Sodium Chloride (Normal Saline With 20 Meq Kcl) 1,000 mls @ 125 mls/hr IV ASDIRECTED NOEMI Last Admin: 11/05/17 12:20 Dose: 125 mls/hr Sodium Chloride (Saline Flush) 10 ml FLUSH ASDIRECTED PRN PRN Reason: Keep Vein Open Last Admin: 11/05/17 12:06 Dose: 10 ml Labs: Laboratory Tests 11/05/17 11/05/17 11/05/17 Range/Units 11:35 11:35 12:12 WBC 10.0 (4.5-11.0) K/uL RBC 3.98 (3.30-5.50) M/uL Hgb 10.7 L (12.0-15.0) g/dL Hct 34.6 L (36.0-48.0) % MCV 87 (80-98) fL MCH 27 (27-31) pg MCHC 31 L (32-36) % Plt Count 497 H (150-400) K/uL Neut % (Auto) 66 (36-66) % Lymph % (Auto) 21 L (24-44) % [place] % (Auto) 12 H (2-6) % Eos % (Auto) 1 L (2-4) % Baso % (Auto) 1 (0-1) % ESR 88 H (0-25) mm/hr Sodium 134 L (140-148) mmol/L Potassium 3.0 L (3.6-5.2) mmol/L Chloride 99 L (100-108) mmol/L Carbon Dioxide 28 (21-32) mmol/L Anion Gap 10.0 (5.0-14.0) mmol/L BUN 9 (7-18) mg/dL Creatinine 0.8 (0.6-1.0) mg/dL Est Cr Clr Drug Dosing 49.63 mL/min Estimated GFR (MDRD) > 60 (>60) Glucose 107 H (74-106) mg/dL Uric Acid 4.9 (2.6-6.2) mg/dL Calcium 8.1 L (8.5-10.1) mg/dL Magnesium 1.7 L (1.8-2.4) mg/dL C-Reactive Protein 3.17 H (0.0-0.3) mg/dL Meds: Medications Generic Name Dose Route Start Last Admin Trade Name Freq PRN Reason Stop Dose Admin Potassium Chloride/Sodium Chloride 1,000 mls @ 125 mls/hr 11/05/17 12:15 11/21 12:20 Normal Saline With 20 Meq Kcl IV 125 mls/hr ASDIRECTED NOEMI Administration Sodium Chloride 10 ml 11/05/17 11:48 11/05/17 12:06 Saline Flush FLUSH 10 ml ASDIRECTED PRN Administration Keep Vein Open Discontinued Medications Generic Name Dose Route Start Last Admin Trade Name Freq PRN Reason Stop Dose Admin Hydrocodone Bitart/Acetaminophen 1 tab 11/05/17 11:24 11/05/17 12:05 [place] 325-5 Mg PO 11/05/17 11:25 1 tab ONETIME ONE Administration Potassium Chloride 40 meq 11/05/17 12:02 11/05/17 12:19 Klor-Con M20 PO 11/05/17 12:03 40 meq ONETIME ONE Administration - Radiology Interpretation Free Text/Narrative:: L elbow X-ray-no joint effusion, soft tissue swelling Departure - Departure Time of Disposition: 13:40 Disposition: Admitted As Inpatient 66 Condition: Fair Clinical Impression: Hypokalemia Septic arthritis of elbow, left Qualifiers: Septic arthritis organism: due to unspecified organism Qualified Code(s): M00.9 - Pyogenic arthritis, unspecified - Discharge Information Referrals: Fracisco Brownlee Sr, MD [Primary Care Provider] - Forms: ED Department Discharge - My Orders Last 24 Hours: My Active Orders 11/05/17 11:48 Elbow 2V Lt [CR] Stat Sodium Chloride 0.9% [Saline Flush] 10 ml FLUSH ASDIRECTED PRN Saline Lock Insert [OM.PC] Routine 11/05/17 12:15 NS + KCl 20mEq/L [Normal Saline with 20 mEq KCl] 1,000 ml IV ASDIRECTED - Assessment/Plan Last 24 Hours: My Active Orders 11/05/17 11:48 Elbow 2V Lt [CR] Stat Sodium Chloride 0.9% [Saline Flush] 10 ml FLUSH ASDIRECTED PRN Saline Lock Insert [OM.PC] Routine 11/05/17 12:15 NS + KCl 20mEq/L [Normal Saline with 20 mEq KCl] 1,000 ml IV ASDIRECTED
[2017-11-05] MEDS ORDERED: Sodium Chloride 0.9% 10 ML Syringe FLUSH PRN (11:48)
[2017-11-05] MEDS ORDERED: Potassium Chloride 20 MEQ Tab.ER PO ONE (12:02)
[2017-11-05] MEDS: NS + KCl 20mEq/L 1,000 ML IV SCH (12:20)
--- NOTE | 2017-11-05 13:31 | CR ---
Elbow 2V Lt HISTORY: Pain COMPARISON: Prior CT scan 11/01/2017. Prior plain films 11/01/2013. FINDINGS: There is a small joint effusion with visualization of the posterior fat-pad. No bony destru ctive changes. No fracture seen. Extensive soft tissue swelling.
[2017-11-05] MEDS ORDERED: Lidocaine 1% 20 ML MDV INJECT ONE (13:36)
[2017-11-05] MEDS ORDERED: Iohexol 647 MG/ML 10 ML SDV IV PRN (13:37)
--- NOTE | 2017-11-05 14:25 | CR ---
Fluoro Over 1Hr wo Rad HISTORY: Left elbow swelling and pain. COMPARISON: Prior CT scan left elbow. FINDINGS: Informed consent was obtained. The skin overlying the left elbow prepped and draped sterile fashion. 3 cc of 1% lidocaine was used to anesthetize the skin surface overlying the left elbow join ts. 22-gauge spinal needle was guided into the joint spaces was confirmed with a small amount of wate r-soluble contrast. 0.5 cc of cloudy fluid was aspirated and sent to lab for analysis. Impression: Successful fluoroscopic-guided left elbow joint aspiration.
--- NOTE | 2017-11-05 16:02 | PCM.HP ---
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 Now unresponsive to Zyvox. Had a aspiration of the left elbow and removed 1.5 cc of fluid yellow color. She has not been improving for the last 4 days. Duration of Symptoms: Reports: Day(s): Location: Reports: Upper Extremity, Left Quality: Reports: Ache, Sharp, Stabbing Severity: Moderate Improves with: Reports: None Left Arm Pain Score (Numeric/FACES): 10 - Related Data Allergies/Adverse Reactions: Allergies Allergy/AdvReac Type Severity Reaction Status Date / Time No Known Allergies Allergy Verified 11/05/17 10:55 Home Medications: Home Meds Amiodarone HCl 200 mg PO DAILY 04/02/17 [History] Acetaminophen [Tylenol] 650 mg PO Q4H PRN 09/06/17 [History] *Prostat 11/05/17 [History] Acetaminophen/oxyCODONE [Percocet 325-5 MG] 5 - 325 mg PO Q4HR PRN 11/05/17 [ History] Arformoterol [Brovana] 1 ampule IH BID 11/05/17 [History] Gabapentin [Neurontin] 300 mg PO TID 11/05/17 [History] Lactobacillus Acidophilus [Probiotic] 2 cap PO BID 11/05/17 [History] Linezolid [Zyvox] 600 mg PO BID 11/05/17 [History] Loperamide [Imodium AD] 2 mg PO DAILY PRN 11/05/17 [History] Metronidazole [IJD: metroNIDAZOLE] 500 mg PO TID 11/05/17 [History] Multivitamin Plus Zinc 1 cap PO DAILY 11/05/17 [History] Naproxen Sodium 220 mg PO TID PRN 11/05/17 [History] traMADol HCl [Tramadol HCl] 50 mg PO Q4HR PRN 11/05/17 [History] Past Medical History HEENT History: Reports: Cataract, Impaired Vision Cardiovascular History: Reports: Arrhythmia, CAD, High Cholesterol, PR, Pacemaker, Stents Respiratory History: Reports: COPD, Sleep Apnea, Other (See Below) Other Respiratory History: uses home O2 at night Gastrointestinal History: Reports: Cholelithiasis Genitourinary History: Reports: Urinary Incontinence [employer] History: Reports: Musculoskeletal History: Reports: Back Pain, Chronic, Other (See Below) Other Musculoskeletal History: R hip and R leg pain. s/p lumbar fusion. Endocrine/Metabolic History: Reports: Other (See Below) Other Endocrine/Metabolic History: hypoglycemia - Infectious Disease History Infectious Disease History: Reports: MRSA - Past Surgical History HEENT Surgical History: Reports: Cataract Surgery GI Surgical History: Reports: Appendectomy, Cholecystectomy, Colonoscopy Female Surgical History: Reports: Hysterectomy, Salpingo-Oophorectomy Neurological Surgical History: Reports: Lumbar Spine Social & Family History - Family History Family Medical History: Noncontributory - Tobacco Use Smoking Status *Q: Unknown Ever Smoked Years of Tobacco use: 60 Packs/Tins Daily: 1 Used Tobacco, but Quit: Yes Month Tobacco Last Used: 10 YEARS AGO Second Hand Smoke Exposure: No - Caffeine Use Caffeine Use: Reports: Coffee - Recreational Drug Use Recreational Drug Use: No H&P Review of Systems - Review of Systems: Review Of Systems: See Below General: Reports: Weakness HEENT: Reports: No Symptoms Pulmonary: Reports: No Symptoms Cardiovascular: Reports: No Symptoms Gastrointestinal: Reports: Diarrhea Genitourinary: Reports: No Symptoms Musculoskeletal: Reports: Joint Pain Skin: Reports: No Symptoms Psychiatric: Reports: No Symptoms Neurological: Reports: No Symptoms Hematologic/Lymphatic: Reports: No Symptoms Immunologic: Reports: No Symptoms Exam - Exam Exam: See Below - Vital Signs Vital Signs: Last Vital Signs Temp 96.3 F 11/05/17 10:55 Pulse 62 11/05/17 13:41 Resp 18 11/05/17 13:41 BP 132/54 L 11/05/17 13:41 Pulse Ox 96 11/05/17 13:41 Weight: 148 lb - Exam General: Alert, Oriented, 4 HEENT: PERRLA, Hearing Intact, Mucosa Moist & [place], Nares Patent, Normal Nasal Septum, Posterior Pharynx Clear, Conjunctiva Clear, EOMI, EACs Clear, TMs Clear Neck: Supple, Trachea Midline, 2 Lungs: Clear to Auscultation, Normal Respiratory Effort Cardiovascular: Regular Rate, Regular Rhythm Extremities: Joint Swelling, Arm Pain, Increased Warmth, Redness Peripheral Pulses: 1+: Radial (L), Radial (R) Skin: Warm Neurological: Cranial Nerves Intact, Reflexes Equal Bilateral Neuro Extensive - Mental Status: Alert, Oriented x3, Normal Mood/Affect Psychiatric: Alert, Normal Affect, Anxious - Patient Data Lab Results Last 24 hrs: Laboratory Results - last 24 hr 11/05/17 11/05/17 11/05/17 Range/Units 11:35 11:35 12:12 WBC 10.0 (4.5-11.0) K/uL RBC 3.98 (3.30-5.50) M/uL Hgb 10.7 L (12.0-15.0) g/dL Hct 34.6 L (36.0-48.0) % MCV 87 (80-98) fL MCH 27 (27-31) pg MCHC 31 L (32-36) % Plt Count 497 H (150-400) K/uL Neut % (Auto) 66 (36-66) % Lymph % (Auto) 21 L (24-44) % [place] % (Auto) 12 H (2-6) % Eos % (Auto) 1 L (2-4) % Baso % (Auto) 1 (0-1) % ESR 88 H (0-25) mm/hr Sodium 134 L (140-148) mmol/L Potassium 3.0 L (3.6-5.2) mmol/L Chloride 99 L (100-108) mmol/L Carbon Dioxide 28 (21-32) mmol/L Anion Gap 10.0 (5.0-14.0) mmol/L BUN 9 (7-18) mg/dL Creatinine 0.8 (0.6-1.0) mg/dL Est Cr Clr Drug Dosing 49.63 mL/min Estimated GFR (MDRD) > 60 (>60) Glucose 107 H (74-106) mg/dL Uric Acid 4.9 (2.6-6.2) mg/dL Calcium 8.1 L (8.5-10.1) mg/dL Magnesium 1.7 L (1.8-2.4) mg/dL C-Reactive Protein 3.17 H (0.0-0.3) mg/dL Result Diagrams: 11/05/17 11:35 11/06/17 04:59 Cornelius Results Last 24 hrs: Microbiology 11/05/17 14:17 Gram Stain - Final Joint / Synovial Fluid - Elbow, Left *Q Meaningful Use (ADM) - VTE *Q VTE Criteria *Q: - Stroke *Q Stroke Criteria *Q: - AMI *Q AMI Criteria *Q: Problem List Initiated/Reviewed/Updated: Yes Orders Last 24hrs: Active Orders 24 hr Category Date Time Status Patient Status [ADT] Routine ADT 11/05/17 15:42 Ordered Ambulate [RC] QID Care 11/05/17 15:42 Ordered Height and Weight [RC] DAILY Care 11/05/17 15:42 Ordered Intake and Output [RC] QSHIFT Care 11/05/17 15:45 Ordered Oxygen Therapy [RC] PRN Care 11/05/17 15:42 Ordered Up With Assistance [RC] ASDIRECTED Care 11/05/17 15:42 Ordered Up ad [place] [RC] ASDIRECTED Care 11/05/17 15:42 Ordered VTE/DVT Education [RC] Per Unit Routine Care 11/05/17 15:42 Ordered Vital Signs [RC] Q4H Care 11/05/17 15:42 Ordered Regular Diet [DIET] Diet 11/05/17 Dinner Ordered BASIC METABOLIC PANEL,BMP [CHEM] AM Lab 11/06/17 05:11 Ordered CULTURE BODY FLUID + SMEAR [RM] Stat Lab 11/05/17 14:17 Results *Prostat Med 11/05/17 16:00 Unverified DOSE UNIT RTE FREQ Acetaminophen [Tylenol] Med 11/05/17 15:48 Ordered 650 mg PO Q4H PRN Acetaminophen/oxyCODONE [Percocet 325-5 MG] Med 11/05/17 15:48 Ordered 5 - 325 mg PO Q4HR PRN Amiodarone [Cordarone] Med 11/06/17 09:00 Ordered 200 mg PO DAILY Arformoterol [Brovana] Med 11/05/17 21:00 Ordered 1 ampule INH BID Gabapentin [Neurontin] Med 11/05/17 21:00 Ordered 300 mg PO TID Lactobacillus Acidophilus [Probiotic] Med 11/05/17 21:00 Ordered 2 cap PO BID Loperamide [Imodium AD] Med 11/05/17 15:48 Ordered 2 mg PO DAILY PRN Metronidazole [IJD: metroNIDAZOLE] Med 11/05/17 21:00 Ordered 500 mg PO TID Multivitamin Plus Zinc Med 11/06/17 09:00 Ordered 1 cap PO DAILY NS + KCl 20mEq/L [Normal Saline with 20 mEq KCl] 1,000 Med 11/05/17 12:15 Active ml IV ASDIRECTED Naproxen Sodium Med 11/05/17 15:48 Ordered 220 mg PO TID PRN Sodium Chloride 0.9% [Saline Flush] Med 11/05/17 11:48 Active 10 ml FLUSH ASDIRECTED PRN Saline Lock Insert [OM.PC] Routine Oth 11/05/17 11:48 Ordered Sequential Compression Device [OM.PC] Per Unit Routine Oth 11/05/17 15:46 Ordered Resuscitation Status Routine Resus Stat 11/05/17 15:42 Ordered Medication Orders Acetaminophen (Tylenol) 650 mg PO Q4H PRN PRN Reason: Pain Amiodarone HCl (Cordarone) 200 mg PO DAILY NOEMI Arformoterol Tartrate (Brovana) mcg INH BID NOEMI Gabapentin (Neurontin) 300 mg PO TID NOEMI Potassium Chloride/Sodium Chloride (Normal Saline With 20 Meq Kcl) 1,000 mls @ 125 mls/hr IV ASDIRECTED NOEMI Last Admin: 11/05/17 12:20 Dose: 125 mls/hr Naproxen (Naproxen Sodium) 220 mg PO TID PRN PRN Reason: Pain Non-Formulary Medication (Lactobacillus Acidophilus [Probiotic]) 2 cap PO BID [facility] Non-Formulary Medication (Loperamide [Imodium Ad]) 2 mg PO DAILY PRN PRN Reason: Diarrhea Non-Formulary Medication (Metronidazole [Ijd: Metronidazole]) 500 mg PO TID [facility] Non-Formulary Medication (Multivitamin Plus Zinc) 1 cap PO DAILY [facility] Oxycodone/Acetaminophen (Percocet 325-5 Mg) tab PO Q4HR PRN PRN Reason: Pain Sodium Chloride (Saline Flush) 10 ml FLUSH ASDIRECTED PRN PRN Reason: Keep Vein Open Last Admin: 11/05/17 12:06 Dose: 10 ml Assessment/Plan Comment:: Assessment/Plan: #1. Infection left arm. Will put in the hospital and give IV meds. Cultures pending. #2. HTN: Contdinue with meds. #3. History of SVT: had been on Amiodarone 200 mgq day #4. COPD: Had been on Brovana BID #5. Sleep Apnea
[2017-11-05] MEDS ORDERED: Loperamide 2 MG Cap PO PRN (16:08)
[2017-11-05] MEDS: Meropenem 500 MG in Sodium Chloride 0.9% 50 ML IV SCH (17:11)
[2017-11-05] MEDS: Acetaminophen/oxyCODONE 325-5 MG Tab PO PRN (17:14)
[2017-11-05] MEDS: Lactobacillus Rhamnosus GG (Probiotic) Cap PO SCH (20:58)
[2017-11-05] MEDS: Arformoterol 15 MCG/2 ML Neb Soln INH SCH (20:58)
[2017-11-05] MEDS: metroNIDAZOLE 250 MG Tab PO SCH (20:59)
[2017-11-05] MEDS: Gabapentin 300 MG Cap PO SCH (20:59)
[2017-11-05] MEDS ORDERED: Arformoterol 15 MCG/2 ML Neb Soln INH SCH (21:00)
[2017-11-06] MEDS: Meropenem 500 MG in Sodium Chloride 0.9% 50 ML IV SCH ×3 (00:19→16:39)
[2017-11-06] MEDS: Acetaminophen 325 MG Tab PO PRN ×2 (00:22→13:14)
[2017-11-06] MEDS: NS + KCl 20mEq/L 1,000 ML IV SCH ×3 (03:19→23:18)
[2017-11-06] MEDS: Acetaminophen/oxyCODONE 325-5 MG Tab PO PRN ×2 (04:40→13:15)
[2017-11-06] MEDS: Arformoterol 15 MCG/2 ML Neb Soln INH SCH ×2 (08:52→20:41)
[2017-11-06] MEDS: metroNIDAZOLE 250 MG Tab PO SCH ×3 (09:10→20:42)
[2017-11-06] MEDS: Lactobacillus Rhamnosus GG (Probiotic) Cap PO SCH ×2 (09:10→20:41)
[2017-11-06] MEDS: Amiodarone 200 MG Tab PO SCH (09:10)
[2017-11-06] MEDS: Gabapentin 300 MG Cap PO SCH ×3 (09:11→20:42)
[2017-11-06] MEDS: Multivitamins with Iron/Calcium/Folic Acid/Minerals Tab PO SCH (09:11)
--- NOTE | 2017-11-06 09:48 | PCM.PN ---
- General Info Date of Service: 11/06/17 Functional Status: Reports: Pain Controlled - Review of Systems General: Reports: Weakness HEENT: Reports: No Symptoms Pulmonary: Reports: No Symptoms Cardiovascular: Reports: No Symptoms Gastrointestinal: Reports: No Symptoms Genitourinary: Reports: No Symptoms Musculoskeletal: Reports: No Symptoms Skin: Reports: No Symptoms Neurological: Reports: No Symptoms Psychiatric: Reports: No Symptoms - Patient Data Vitals - Most Recent: Last Vital Signs Temp 97.9 F 11/06/17 07:00 Pulse 66 11/06/17 07:00 Resp 18 11/06/17 07:00 BP 131/69 11/06/17 07:00 Pulse Ox 96 11/06/17 07:00 Weight - Most Recent: 156 lb 8.451 oz I&O - Last 24 Hours: Intake & Output 11/05/17 11/06/17 11/06/17 22:59 06:59 14:59 Intake Total 300 1902 400 Output Total 1000 500 Balance 300 902 -100 Lab Results Last 24 Hours: Laboratory Results - last 24 hr 11/06/17 Range/Units 04:59 Sodium 142 (140-148) mmol/L Potassium 3.4 L (3.6-5.2) mmol/L Chloride 107 (100-108) mmol/L Carbon Dioxide 26 (21-32) mmol/L Anion Gap 12.4 (5.0-14.0) mmol/L BUN 8 (7-18) mg/dL Creatinine 0.7 (0.6-1.0) mg/dL Est Cr Clr Drug Dosing 56.72 mL/min Estimated GFR (MDRD) > 60 (>60) Glucose 81 (74-106) mg/dL Calcium 8.0 L (8.5-10.1) mg/dL Med Orders - Current: Current Medications Acetaminophen (Tylenol) 650 mg PO Q4H PRN PRN Reason: Pain Last Admin: 11/06/17 00:22 Dose: 650 mg Amiodarone HCl (Cordarone) 200 mg PO DAILY [facility] Last Admin: 11/06/17 09:10 Dose: 200 mg Arformoterol Tartrate (Brovana) 15 mcg INH BIDRT [facility] Last Admin: 11/06/17 08:52 Dose: 15 mcg Gabapentin (Neurontin) 300 mg PO TID [facility] Last Admin: 02/03/18 09:11 Dose: 300 mg Potassium Chloride/Sodium Chloride (Normal Saline With 20 Meq Kcl) 1,000 mls @ 125 mls/hr IV ASDIRECTED [facility] Last Admin: 11/06/17 03:19 Dose: 125 mls/hr Meropenem 500 mg/ Sodium (Chloride) 50 mls @ 100 mls/hr IV Q8H [facility] Last Admin: 11/06/17 08:46 Dose: 100 mls/hr Vancomycin HCl 1 gm/ Sodium (Chloride) 250 mls @ 167 mls/hr IV Q12H [facility] Last Admin: 11/06/17 04:42 Dose: 167 mls/hr Lactobacillus Rhamnosus (Culturelle) 2 cap PO BID [facility] Last Admin: 11/06/17 09:10 Dose: 2 cap Loperamide HCl (Imodium) 2 mg PO DAILY PRN PRN Reason: Diarrhea Metronidazole (Metronidazole) 500 mg PO TID [facility] Last Admin: 11/06/17 09:10 Dose: 500 mg Multivitamins/Minerals (Thera M Plus) 1 tab PO DAILY [facility] Last Admin: 11/06/17 09:11 Dose: 1 tab Naproxen (Naproxen Sodium) 220 mg PO TID PRN PRN Reason: Pain Oxycodone/Acetaminophen (Percocet 325-5 Mg) 1 tab PO Q4H PRN PRN Reason: Pain Last Admin: 11/06/17 04:40 Dose: 1 tab Sodium Chloride (Saline Flush) 10 ml FLUSH ASDIRECTED PRN PRN Reason: Keep Vein Open Last Admin: 11/05/17 12:06 Dose: 10 ml Discontinued Medications Hydrocodone Bitart/Acetaminophen ([place] 325-5 Mg) 1 tab PO ONETIME ONE Stop: 11/05/17 11:25 Last Admin: 11/05/17 12:05 Dose: 1 tab Iohexol (Omnipaque-300) 5 ml IV . DIRECTED PRN PRN Reason: RADIOLOGY EXAM Last Admin: 11/05/17 14:09 Dose: 10 ml Lidocaine HCl (Xylocaine 1%) 10 ml INJECT ONETIME ONE Stop: 11/05/17 13:37 Last Admin: 11/05/17 14:09 Dose: 20 ml Potassium Chloride (Klor-Con M20) 40 meq PO ONETIME ONE Stop: 11/05/17 12:03 Last Admin: 11/05/17 12:19 Dose: 40 meq - Exam General: Alert, Oriented HEENT: Pupils Equal, Pupils Reactive, EOMI, Mucous Membr. Moist/[place] Neck: Supple Lungs: Clear to Auscultation, Normal Respiratory Effort Cardiovascular: Regular Rate, Regular Rhythm GI/Abdominal Exam: Normal Bowel Sounds, Soft, Non-Tender, No Organomegaly, No Distention, No Abnormal Bruit, No Mass, Pelvis Stable Extremities: Joint Swelling, Arm Pain Skin: Warm, Dry, Intact Wound/Incisions: Healing Well - Problem List Review Problem List Initiated/Reviewed/Updated: Yes - My Orders Last 24 Hours: My Active Orders 11/05/17 15:48 Acetaminophen [Tylenol] 650 mg PO Q4H PRN Acetaminophen/oxyCODONE [Percocet 325-5 MG] 1 tab PO Q4H PRN Naproxen Sodium 220 mg PO TID PRN 11/05/17 16:00 *Prostat DOSE UNIT RTE FREQ 11/05/17 16:08 Loperamide [Imodium] 2 mg PO DAILY PRN 11/05/17 16:30 Meropenem [Merrem] 500 mg Sodium Chloride 0.9% [Normal Saline] 50 ml IV Q8H 11/05/17 17:00 Vancomycin 1 gm Sodium Chloride 0.9% [Normal Saline] 250 ml IV Q12H 11/05/17 21:00 Arformoterol [Brovana] 15 mcg INH BIDRT Gabapentin [Neurontin] 300 mg PO TID Lactobacillus Rhamnosus GG [Culturelle] 2 cap PO BID metroNIDAZOLE 500 mg PO TID 11/06/17 08:32 Consult to Physician [CONS] Routine 11/06/17 08:34 Immobilizer [RC] ASDIRECTED Notify Provider Consults [RC] ASDIRECTED 11/06/17 09:00 Amiodarone [Cordarone] 200 mg PO DAILY Multivitamins w-Iron/Ca/FA/Min [Thera M Plus] 1 tab PO DAILY - Plan Plan:: Assessment/Plan: #1. Infection left arm. Is on antibiotics and improving. Cultures pending. #2. HTN: Contdinue with meds. #3. History of SVT: had been on Amiodarone 200 mg day #4. COPD: Had been on Brovana BID #5. Sleep Apnea. #6. Hypokalemia: will replace with 20meq KCL bid
[2017-11-06] MEDS: Potassium Chloride 20 MEQ Tab.ER PO SCH (20:41)
[2017-11-07] MEDS: Meropenem 500 MG in Sodium Chloride 0.9% 50 ML IV SCH ×3 (00:23→16:07)
[2017-11-07] MEDS: Acetaminophen/oxyCODONE 325-5 MG Tab PO PRN ×3 (02:27→19:35)
[2017-11-07] MEDS: Acetaminophen 325 MG Tab PO PRN ×3 (02:28→19:36)
[2017-11-07] MEDS: Arformoterol 15 MCG/2 ML Neb Soln INH SCH ×2 (08:01→21:14)
[2017-11-07] MEDS: Lactobacillus Rhamnosus GG (Probiotic) Cap PO SCH ×2 (08:30→21:14)
[2017-11-07] MEDS: Potassium Chloride 20 MEQ Tab.ER PO SCH ×2 (08:30→21:13)
[2017-11-07] MEDS: Amiodarone 200 MG Tab PO SCH (08:31)
[2017-11-07] MEDS: Multivitamins with Iron/Calcium/Folic Acid/Minerals Tab PO SCH (08:31)
[2017-11-07] MEDS: metroNIDAZOLE 250 MG Tab PO SCH ×3 (08:31→21:14)
[2017-11-07] MEDS: Gabapentin 300 MG Cap PO SCH ×3 (08:31→21:14)
[2017-11-07] MEDS: NS + KCl 20mEq/L 1,000 ML IV SCH ×2 (10:12→23:09)
--- NOTE | 2017-11-07 13:44 | PCM.PN ---
- General Info Date of Service: 11/07/17 Functional Status: Reports: Pain Controlled - Review of Systems General: Reports: Weakness HEENT: Reports: No Symptoms Pulmonary: Reports: No Symptoms Cardiovascular: Reports: No Symptoms Gastrointestinal: Reports: No Symptoms Genitourinary: Reports: No Symptoms Musculoskeletal: Reports: Joint Pain, Other (Weakness in both legs) Skin: Reports: No Symptoms Neurological: Reports: No Symptoms - Patient Data Vitals - Most Recent: Last Vital Signs Temp 97.1 F 11/07/17 11:18 Pulse 63 11/07/17 11:18 Resp 16 11/07/17 11:18 BP 132/67 11/07/17 11:18 Pulse Ox 97 11/07/17 11:18 Weight - Most Recent: 164 lb 8 oz I&O - Last 24 Hours: Intake & Output 11/06/17 11/07/17 11/07/17 22:59 06:59 14:59 Intake Total 1557 1891 250 Output Total 400 500 700 Balance 1157 1391 -450 Lab Results Last 24 Hours: Laboratory Results - last 24 hr 11/07/17 11/07/17 Range/Units 04:20 04:36 Sodium 139 L (140-148) mmol/L Potassium 4.4 (3.6-5.2) mmol/L Chloride 107 (100-108) mmol/L Carbon Dioxide 24 (21-32) mmol/L Anion Gap 12.4 (5.0-14.0) mmol/L BUN 8 (7-18) mg/dL Creatinine 0.7 (0.6-1.0) mg/dL Est Cr Clr Drug Dosing 56.72 mL/min Estimated GFR (MDRD) > 60 (>60) Glucose 116 H (74-106) mg/dL Calcium 7.8 L (8.5-10.1) mg/dL Vancomycin Trough 14.0 (10.0-20.0) ug/mL Med Orders - Current: Current Medications Acetaminophen (Tylenol) 650 mg PO Q4H PRN PRN Reason: Pain Last Admin: 11/07/17 02:28 Dose: 325 mg Amiodarone HCl (Cordarone) 200 mg PO DAILY [facility] Last Admin: 11/07/17 08:31 Dose: 200 mg Arformoterol Tartrate (Brovana) 15 mcg INH BIDRT [facility] Last Admin: 11/07/17 08:01 Dose: 15 mcg Gabapentin (Neurontin) 300 mg PO TID [facility] Last Admin: 11/07/17 08:31 Dose: 300 mg Potassium Chloride/Sodium Chloride (Normal Saline With 20 Meq Kcl) 1,000 mls @ 125 mls/hr IV ASDIRECTED [facility] Last Admin: 11/07/17 10:12 Dose: 125 mls/hr Meropenem 500 mg/ Sodium (Chloride) 50 mls @ 100 mls/hr IV Q8H [facility] Last Admin: 11/07/17 08:17 Dose: 100 mls/hr Vancomycin HCl 1 gm/ Sodium (Chloride) 250 mls @ 167 mls/hr IV Q12H [facility] Last Admin: 11/07/17 04:30 Dose: 167 mls/hr Lactobacillus Rhamnosus (Culturelle) 2 cap PO BID [facility] Last Admin: 11/07/17 08:30 Dose: 2 cap Loperamide HCl (Imodium) 2 mg PO DAILY PRN PRN Reason: Diarrhea Metronidazole (Metronidazole) 500 mg PO TID [facility] Last Admin: 11/07/17 08:31 Dose: 500 mg Multivitamins/Minerals (Thera M Plus) 1 tab PO DAILY [facility] Last Admin: 11/07/17 08:31 Dose: 1 tab Naproxen (Naproxen Sodium) 220 mg PO TID PRN PRN Reason: Pain Oxycodone/Acetaminophen (Percocet 325-5 Mg) 1 tab PO Q4H PRN PRN Reason: Pain Last Admin: 11/07/17 02:27 Dose: 1 tab Potassium Chloride (Klor-Con M20) 20 meq PO BID [facility] Last Admin: 11/07/17 08:30 Dose: 20 meq Sodium Chloride (Saline Flush) 10 ml FLUSH ASDIRECTED PRN PRN Reason: Keep Vein Open Last Admin: 11/05/17 12:06 Dose: 10 ml Discontinued Medications Hydrocodone Bitart/Acetaminophen ([place] 325-5 Mg) 1 tab PO ONETIME ONE Stop: 11/05/17 11:25 Last Admin: 11/05/17 12:05 Dose: 1 tab Iohexol (Omnipaque-300) 5 ml IV . DIRECTED PRN PRN Reason: RADIOLOGY EXAM Last Admin: 11/05/17 14:09 Dose: 10 ml Lidocaine HCl (Xylocaine 1%) 10 ml INJECT ONETIME ONE Stop: 11/05/17 13:37 Last Admin: 11/05/17 14:09 Dose: 20 ml Potassium Chloride (Klor-Con M20) 40 meq PO ONETIME ONE Stop: 11/05/17 12:03 Last Admin: 11/05/17 12:19 Dose: 40 meq - Exam General: Alert, Oriented HEENT: Pupils Equal, Pupils Reactive, EOMI, Mucous Membr. Moist/[place] Lungs: Clear to Auscultation, Normal Respiratory Effort Cardiovascular: Regular Rate, Regular Rhythm GI/Abdominal Exam: Normal Bowel Sounds, Soft, Non-Tender, No Organomegaly, No Distention, No Abnormal Bruit, No Mass, Pelvis Stable Extremities: Other (Still has swelling in the left elbow with pain to movement.) Peripheral Pulses: 1+: Radial (L), Radial (R) Skin: Warm, Dry, Intact Psy/Mental Status: Alert, Normal Affect, Normal Mood - Problem List Review Problem List Initiated/Reviewed/Updated: Yes - My Orders Last 24 Hours: My Active Orders 11/06/17 21:00 Potassium Chloride [Klor-Con M20] 20 meq PO BID - Plan Plan:: Assessment/Plan: #1. Infection left arm. Continue with the antibiotics as I do see less pain in moving of the hand but still pain and swelling in the left elbow area. I feel the swelling has improved.. Cultures pending. #2. HTN: Continue with meds as stable BP's. #3. History of SVT: had been on Amiodarone 200 mg q day #4. COPD: Had been on Brovana BID #5. Sleep Apnea
[2017-11-08] MEDS: Meropenem 500 MG in Sodium Chloride 0.9% 50 ML IV SCH ×3 (00:05→15:41)
[2017-11-08] MEDS ORDERED: Furosemide 20 MG/2 ML VIAL IVPUSH STA (01:35)
[2017-11-08] MEDS ORDERED: Albuterol 0.083% 2.5 MG/3 ML Neb Soln NEB STA (01:36)
[2017-11-08] MEDS ORDERED: LORazepam 2 MG/ML MDV IVPUSH STA (01:55)
[2017-11-08] MEDS ORDERED: Furosemide 20 MG/2 ML VIAL IVPUSH ONE (02:19)
[2017-11-08] MEDS ORDERED: Enoxaparin 30 MG/0.3 ML Syringe SUBCUT ONE (02:26)
[2017-11-08] MEDS: Arformoterol 15 MCG/2 ML Neb Soln INH SCH ×2 (07:26→20:26)
[2017-11-08] MEDS: Acetaminophen/oxyCODONE 325-5 MG Tab PO PRN (08:38)
[2017-11-08] MEDS: Potassium Chloride 20 MEQ Tab.ER PO SCH ×2 (08:47→20:27)
[2017-11-08] MEDS: Lactobacillus Rhamnosus GG (Probiotic) Cap PO SCH ×2 (08:48→20:27)
[2017-11-08] MEDS: Amiodarone 200 MG Tab PO SCH (09:08)
[2017-11-08] MEDS: Multivitamins with Iron/Calcium/Folic Acid/Minerals Tab PO SCH (09:08)
[2017-11-08] MEDS: Gabapentin 300 MG Cap PO SCH ×3 (09:08→20:27)
[2017-11-08] MEDS: metroNIDAZOLE 250 MG Tab PO SCH ×3 (09:08→20:27)
--- NOTE | 2017-11-08 10:12 | CR ---
Findings: Pedicle screws and rods L3, L4 and L5 with bone graft. Hardware is intact. Laminectomy lower lumbar s pine. Similar findings compared to most recent exam.
[2017-11-09] MEDS: Meropenem 500 MG in Sodium Chloride 0.9% 50 ML IV SCH (00:42)
[2017-11-09] MEDS: Arformoterol 15 MCG/2 ML Neb Soln INH SCH (07:30)
[2017-11-09] MEDS: Potassium Chloride 20 MEQ Tab.ER PO SCH (08:47)
[2017-11-09] MEDS: Multivitamins with Iron/Calcium/Folic Acid/Minerals Tab PO SCH (08:47)
[2017-11-09] MEDS: Amiodarone 200 MG Tab PO SCH (08:47)
[2017-11-09] MEDS: Gabapentin 300 MG Cap PO SCH (08:48)
[2017-11-09] MEDS: metroNIDAZOLE 250 MG Tab PO SCH (08:48)
[2017-11-09] MEDS: Lactobacillus Rhamnosus GG (Probiotic) Cap PO SCH (08:49)
--- NOTE | 2017-11-09 08:53 | PCM.PN ---
- General Info Date of Service: 11/09/17 Functional Status: Reports: Pain Controlled - Review of Systems General: Reports: Weakness HEENT: Reports: No Symptoms Pulmonary: Reports: Shortness of Breath, Wheezing Cardiovascular: Reports: No Symptoms Gastrointestinal: Reports: No Symptoms Genitourinary: Reports: No Symptoms Musculoskeletal: Reports: Other (numbness of the feet) Skin: Reports: No Symptoms Neurological: Reports: No Symptoms Psychiatric: Reports: No Symptoms - Patient Data Vitals - Most Recent: Last Vital Signs Temp 97.9 F 11/09/17 07:23 Pulse 76 11/09/17 07:30 Resp 18 11/09/17 07:23 BP 135/80 11/09/17 07:23 Pulse Ox 95 11/09/17 07:30 Weight - Most Recent: 164 lb I&O - Last 24 Hours: Intake & Output 11/08/17 11/09/17 11/09/17 22:59 06:59 14:59 Intake Total 550 900 Output Total 200 425 Balance 350 475 Lab Results Last 24 Hours: Laboratory Results - last 24 hr 11/09/17 Range/Units 08:15 Creatinine 0.8 (0.6-1.0) mg/dL Est Cr Clr Drug Dosing 49.55 mL/min Estimated GFR (MDRD) > 60 (>60) Med Orders - Current: Current Medications Acetaminophen (Tylenol) 650 mg PO Q4H PRN PRN Reason: Pain Last Admin: 11/07/17 19:36 Dose: 325 mg Amiodarone HCl (Cordarone) 200 mg PO DAILY [facility] Last Admin: 11/09/17 08:47 Dose: 200 mg Arformoterol Tartrate (Brovana) 15 mcg INH BIDRT [facility] Last Admin: 11/09/17 07:30 Dose: 15 mcg Gabapentin (Neurontin) 300 mg PO TID [facility] Last Admin: 11/09/17 08:48 Dose: 300 mg Vancomycin HCl 1 gm/ Sodium (Chloride) 250 mls @ 167 mls/hr IV Q12H [facility] Last Admin: 11/09/17 04:44 Dose: 167 mls/hr Lactobacillus Rhamnosus (Culturelle) 2 cap PO BID [facility] Last Admin: 11/09/17 08:49 Dose: 2 cap Loperamide HCl (Imodium) 2 mg PO DAILY PRN PRN Reason: Diarrhea Metronidazole (Metronidazole) 500 mg PO TID [facility] Last Admin: 11/09/17 08:48 Dose: 500 mg Multivitamins/Minerals (Thera M Plus) 1 tab PO DAILY [facility] Last Admin: 11/09/17 08:47 Dose: 1 tab Naproxen (Naproxen Sodium) 220 mg PO TID PRN PRN Reason: Pain Oxycodone/Acetaminophen (Percocet 325-5 Mg) 1 tab PO Q4H PRN PRN Reason: Pain Last Admin: 11/08/17 08:38 Dose: 1 tab Potassium Chloride (Klor-Con M20) 20 meq PO BID [facility] Last Admin: 11/09/17 08:47 Dose: 20 meq Sodium Chloride (Saline Flush) 10 ml FLUSH ASDIRECTED PRN PRN Reason: Keep Vein Open Last Admin: 11/05/17 12:06 Dose: 10 ml Discontinued Medications Hydrocodone Bitart/Acetaminophen ([place] 325-5 Mg) 1 tab PO ONETIME ONE Stop: 11/05/17 11:25 Last Admin: 11/05/17 12:05 Dose: 1 tab Albuterol (Proventil Neb Soln) 2.5 mg NEB ONETIME STA Stop: 11/08/17 01:37 Last Admin: 11/08/17 01:50 Dose: 2.5 mg Enoxaparin Sodium (Lovenox) 30 mg SUBCUT ONETIME ONE Stop: 11/08/17 02:27 Last Admin: 11/08/17 02:47 Dose: 30 mg Furosemide (Lasix) 20 mg IVPUSH ONETIME STA Stop: 11/08/17 01:36 Last Admin: 11/08/17 01:42 Dose: 20 mg Furosemide (Lasix) 20 mg IVPUSH ONETIME ONE Stop: 11/08/17 02:20 Last Admin: 11/08/17 02:29 Dose: 20 mg Potassium Chloride/Sodium Chloride (Normal Saline With 20 Meq Kcl) 1,000 mls @ 125 mls/hr IV ASDIRECTED [facility] Last Admin: 11/07/17 23:09 Dose: 125 mls/hr Meropenem 500 mg/ Sodium (Chloride) 50 mls @ 100 mls/hr IV Q8H [facility] Last Admin: 11/09/17 00:42 Dose: 100 mls/hr Iohexol (Omnipaque-300) 5 ml IV . DIRECTED PRN PRN Reason: RADIOLOGY EXAM Last Admin: 11/05/17 14:09 Dose: 10 ml Lidocaine HCl (Xylocaine 1%) 10 ml INJECT ONETIME ONE Stop: 11/05/17 13:37 Last Admin: 11/05/17 14:09 Dose: 20 ml Lorazepam (Ativan) 0.25 mg IVPUSH ONETIME STA Stop: 11/08/17 01:56 Last Admin: 11/08/17 02:06 Dose: 0.25 mg Potassium Chloride (Klor-Con M20) 40 meq PO ONETIME ONE Stop: 11/05/17 12:03 Last Admin: 11/05/17 12:19 Dose: 40 meq - Exam General: Alert, Oriented HEENT: Pupils Equal, Pupils Reactive, EOMI, Mucous Membr. Moist/[place] Neck: Supple Lungs: Clear to Auscultation, Normal Respiratory Effort Cardiovascular: Regular Rate, Regular Rhythm GI/Abdominal Exam: Normal Bowel Sounds, Soft, Non-Tender, No Organomegaly, No Distention, No Abnormal Bruit, No Mass, Pelvis Stable Back Exam: Other (surgery site healing) Extremities: Other (numbness of the legs and feet) Peripheral Pulses: 1+: Radial (L), Radial (R) Neurological: Other (unable to walk due to numbness and weakness.) Psy/Mental Status: Alert, Normal Affect, Normal Mood - Problem List Review Problem List Initiated/Reviewed/Updated: Yes - My Orders Last 24 Hours: My Active Orders 11/09/17 08:52 Ready for Discharge [RC] PER UNIT ROUTINE - Plan Plan:: Assessment/Plan: #1. Infection left arm. 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 Will discharge to [place] and [place] Vancomycin #2. HTN: Continue with meds as stable BP's. #3. History of SVT: had been on Amiodarone 200 mg q day #4. COPD: Had been on Brovana BID will continue #5. Sleep Apnea
--- NOTE | 2017-11-09 08:54 | PCM.DCSUM1 ---
Discharge Summary - Hospital Course Brief History: Jessie [facility] from the [facility] with swelling of the left Elbow. - Discharge Data Discharge Date: 11/09/17 Discharge Disposition: DC/Tfer to [facility] Condition: Fair - Patient Summary/Data Operative Procedure(s) Performed: Aspiration of the elbow with floro Consults: Consultations 11/06/17 08:32 Consult to Physician [CONS] Routine Consulting Provider: Gael Zapata Call Completed to Consulting Physician: Yes Reason for Consult: ortho-back Person Notified: cresencio morris Date Notified: 11/08/17 Time Notified: 11:57 11/06/17 10:30 PT Evaluation and Treatment [CONS] Routine Please Evaluate and Treat. PT Reason for Consult: Ambulation This query below is only for informational purposes and is not editable. 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 Culture grew out MRSA. She did make improvement while in the hospital. She continued to have weakness and numbness of the legs and feet. She had wheezing with fluid overload mild 2 days ago. The fluid was found by X-ray and aspirated using the C-arm. The fluid was cultured and grew out MRSA. - Patient Instructions Diet: Heart Healthy Diet Activity: As Tolerated - Discharge Plan Prescriptions/Med Rec: Doxycycline Monohydrate 100 mg PO BID 6 Days #12 capsule Home Medications: Home Meds Amiodarone HCl 200 mg PO DAILY 04/02/17 [History] Acetaminophen [Tylenol] 650 mg PO Q4H PRN 09/06/17 [History] *Prostat 11/05/17 [History] Acetaminophen/oxyCODONE [Percocet 325-5 MG] 5 - 325 mg PO Q4HR PRN 11/05/17 [ History] Arformoterol [Brovana] 1 ampule IH BID 11/05/17 [History] Gabapentin [Neurontin] 300 mg PO TID 11/05/17 [History] Lactobacillus Acidophilus [Probiotic] 2 cap PO BID 11/05/17 [History] Linezolid [Zyvox] 600 mg PO BID 11/05/17 [History] Loperamide [Imodium AD] 2 mg PO DAILY PRN 11/05/17 [History] Metronidazole [IJD: metroNIDAZOLE] 500 mg PO TID 11/05/17 [History] Multivitamin Plus Zinc 1 cap PO DAILY 11/05/17 [History] Naproxen Sodium 220 mg PO TID PRN 11/05/17 [History] traMADol HCl [Tramadol HCl] 50 mg PO Q4HR PRN 11/05/17 [History] Doxycycline Monohydrate 100 mg PO BID 6 Days #12 capsule 11/09/17 [Rx] Patient Handouts: Bone and Joint Infections, Adult, Cellulitis, Adult Forms: ED Department Discharge Referrals: Fracisco Brownlee Sr, MD [Primary Care Provider] - Vick Linares MD [Physician] - 11/11/17 2:20 pm - General Info Functional Status: Reports: Pain Controlled - Review of Systems General: Reports: Weakness HEENT: Reports: No Symptoms Pulmonary: Reports: Shortness of Breath, Wheezing Cardiovascular: Reports: No Symptoms Gastrointestinal: Reports: No Symptoms Genitourinary: Reports: No Symptoms Musculoskeletal: Reports: No Symptoms Skin: Reports: No Symptoms Neurological: Reports: No Symptoms Psychiatric: Reports: No Symptoms - Patient Data Vitals - Most Recent: Last Vital Signs Temp 97.9 F 11/09/17 07:23 Pulse 76 11/09/17 07:30 Resp 18 11/09/17 07:23 BP 135/80 11/09/17 07:23 Pulse Ox 95 11/09/17 07:30 Weight - Most Recent: 164 lb I&O - Last 24 hours: Intake & Output 11/08/17 11/09/17 11/09/17 22:59 06:59 14:59 Intake Total 550 900 Output Total 200 425 Balance 350 475 Lab Results - Last 24 hrs: Laboratory Results - last 24 hr 11/09/17 Range/Units 08:15 Creatinine 0.8 (0.6-1.0) mg/dL Est Cr Clr Drug Dosing 49.55 mL/min Estimated GFR (MDRD) > 60 (>60) Med Orders - Current: Current Medications Acetaminophen (Tylenol) 650 mg PO Q4H PRN PRN Reason: Pain Last Admin: 11/07/17 19:36 Dose: 325 mg Amiodarone HCl (Cordarone) 200 mg PO DAILY [facility] Last Admin: 11/09/17 08:47 Dose: 200 mg Arformoterol Tartrate (Brovana) 15 mcg INH BIDRT [facility] Last Admin: 11/09/17 07:30 Dose: 15 mcg Gabapentin (Neurontin) 300 mg PO TID [facility] Last Admin: 11/09/17 08:48 Dose: 300 mg Vancomycin HCl 1 gm/ Sodium (Chloride) 250 mls @ 167 mls/hr IV Q12H [facility] Last Admin: 11/09/17 04:44 Dose: 167 mls/hr Lactobacillus Rhamnosus (Culturelle) 2 cap PO BID [facility] Last Admin: 11/09/17 08:49 Dose: 2 cap Loperamide HCl (Imodium) 2 mg PO DAILY PRN PRN Reason: Diarrhea Metronidazole (Metronidazole) 500 mg PO TID [facility] Last Admin: 11/09/17 08:48 Dose: 500 mg Multivitamins/Minerals (Thera M Plus) 1 tab PO DAILY [facility] Last Admin: 11/09/17 08:47 Dose: 1 tab Naproxen (Naproxen Sodium) 220 mg PO TID PRN PRN Reason: Pain Oxycodone/Acetaminophen (Percocet 325-5 Mg) 1 tab PO Q4H PRN PRN Reason: Pain Last Admin: 11/08/17 08:38 Dose: 1 tab Potassium Chloride (Klor-Con M20) 20 meq PO BID [facility] Last Admin: 11/09/17 08:47 Dose: 20 meq Sodium Chloride (Saline Flush) 10 ml FLUSH ASDIRECTED PRN PRN Reason: Keep Vein Open Last Admin: 11/05/17 12:06 Dose: 10 ml Discontinued Medications Hydrocodone Bitart/Acetaminophen ([place] 325-5 Mg) 1 tab PO ONETIME ONE Stop: 11/05/17 11:25 Last Admin: 11/05/17 12:05 Dose: 1 tab Albuterol (Proventil Neb Soln) 2.5 mg NEB ONETIME STA Stop: 11/08/17 01:37 Last Admin: 11/08/17 01:50 Dose: 2.5 mg Enoxaparin Sodium (Lovenox) 30 mg SUBCUT ONETIME ONE Stop: 11/08/17 02:27 Last Admin: 11/08/17 02:47 Dose: 30 mg Furosemide (Lasix) 20 mg IVPUSH ONETIME STA Stop: 11/08/17 01:36 Last Admin: 11/08/17 01:42 Dose: 20 mg Furosemide (Lasix) 20 mg IVPUSH ONETIME ONE Stop: 11/08/17 02:20 Last Admin: 11/08/17 02:29 Dose: 20 mg Potassium Chloride/Sodium Chloride (Normal Saline With 20 Meq Kcl) 1,000 mls @ 125 mls/hr IV ASDIRECTED [facility] Last Admin: 11/07/17 23:09 Dose: 125 mls/hr Meropenem 500 mg/ Sodium (Chloride) 50 mls @ 100 mls/hr IV Q8H [facility] Last Admin: 11/09/17 00:42 Dose: 100 mls/hr Iohexol (Omnipaque-300) 5 ml IV . DIRECTED PRN PRN Reason: RADIOLOGY EXAM Last Admin: 11/05/17 14:09 Dose: 10 ml Lidocaine HCl (Xylocaine 1%) 10 ml INJECT ONETIME ONE Stop: 11/05/17 13:37 Last Admin: 11/05/17 14:09 Dose: 20 ml Lorazepam (Ativan) 0.25 mg IVPUSH ONETIME STA Stop: 11/08/17 01:56 Last Admin: 11/08/17 02:06 Dose: 0.25 mg Potassium Chloride (Klor-Con M20) 40 meq PO ONETIME ONE Stop: 11/05/17 12:03 Last Admin: 11/05/17 12:19 Dose: 40 meq - Exam General: Reports: Alert, Oriented HEENT: Reports: Pupils Equal, Pupils Reactive, EOMI, Mucous Membr. Moist/[place] Neck: Reports: Supple Lungs: Reports: Clear to Auscultation Cardiovascular: Reports: Regular Rate, Regular Rhythm GI/Abdominal Exam: Normal Bowel Sounds, Soft, Non-Tender, No Organomegaly, No Distention, No Abnormal Bruit, No Mass, Pelvis Stable Back Exam: Reports: Normal Inspection, Full Range of Motion. Denies: Vertebral Tenderness Extremities: Normal Inspection, Normal Range of Motion, Non-Tender, No Pedal Edema, Normal Capillary Refill Wound/Incisions: Reports: Erythema Psy/Mental Status: Reports: Alert, Normal Affect, Normal Mood, Anxious *Q Meaningful Use (DIS) - VTE *Q VTE Criteria *Q: - Stroke *Q Stroke Criteria *Q: - AMI *Q AMI Criteria *Q:
[2017-11-09 10:57] VITALS: BP 129/78
--- NOTE | 2017-11-10 09:18 | PCM.CONS ---
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 She is doing very well. Patient does state that she continues to have bilateral leg pain and numbness. She states it is not gotten any better. She is quite concerned regarding this. Patient states that she continues to be weak at this time. She states that she has no pain just weakness. She continues to stay at the [facility] for strengthening at this time. Left Arm Pain Score (Numeric/FACES): 4 - Related Data Allergies/Adverse Reactions: Allergies Allergy/AdvReac Type Severity Reaction Status Date / Time No Known Allergies Allergy Verified 11/05/17 10:55 Home Medications: Home Meds Amiodarone HCl 200 mg PO DAILY 04/02/17 [History] Acetaminophen [Tylenol] 650 mg PO Q4H PRN 09/06/17 [History] *Prostat 11/05/17 [History] Acetaminophen/oxyCODONE [Percocet 325-5 MG] 5 - 325 mg PO Q4HR PRN 11/05/17 [ History] Arformoterol [Brovana] 1 ampule IH BID 11/05/17 [History] Gabapentin [Neurontin] 300 mg PO TID 11/05/17 [History] Lactobacillus Acidophilus [Probiotic] 2 cap PO BID 11/05/17 [History] Linezolid [Zyvox] 600 mg PO BID 11/05/17 [History] Loperamide [Imodium AD] 2 mg PO DAILY PRN 11/05/17 [History] Metronidazole [IJD: metroNIDAZOLE] 500 mg PO TID 11/05/17 [History] Multivitamin Plus Zinc 1 cap PO DAILY 11/05/17 [History] Naproxen Sodium 220 mg PO TID PRN 11/05/17 [History] traMADol HCl [Tramadol HCl] 50 mg PO Q4HR PRN 11/05/17 [History] Doxycycline Monohydrate 100 mg PO BID 6 Days #12 capsule 11/09/17 [Rx] Past Medical History HEENT History: Reports: Cataract, Impaired Vision Cardiovascular History: Reports: Arrhythmia, CAD, High Cholesterol, [place], Pacemaker, Stents Respiratory History: Reports: COPD, Sleep Apnea, Other (See Below) Other Respiratory History: uses home O2 at night Gastrointestinal History: Reports: Cholelithiasis Genitourinary History: Reports: Urinary Incontinence SENIOR ADVISORY History: Reports: Musculoskeletal History: Reports: Back Pain, Chronic, Other (See Below) Other Musculoskeletal History: R hip and R leg pain. s/p lumbar fusion. Endocrine/Metabolic History: Reports: Other (See Below) Other Endocrine/Metabolic History: hypoglycemia - Infectious Disease History Infectious Disease History: Reports: C-Difficile, MRSA - Past Surgical History HEENT Surgical History: Reports: Cataract Surgery GI Surgical History: Reports: Appendectomy, Cholecystectomy, Colonoscopy Female Surgical History: Reports: Hysterectomy, Salpingo-Oophorectomy Neurological Surgical History: Reports: Lumbar Spine Social & Family History - Family History Family Medical History: Noncontributory - Tobacco Use Smoking Status *Q: Unknown Ever Smoked Years of Tobacco use: 60 Packs/Tins Daily: 1 Used Tobacco, but Quit: Yes Month Tobacco Last Used: 10 YEARS AGO Second Hand Smoke Exposure: No - Caffeine Use Caffeine Use: Reports: Coffee - Recreational Drug Use Recreational Drug Use: No H&P Review of Systems - Review of Systems: Review Of Systems: See Below General: Reports: No Symptoms Musculoskeletal: Reports: Other (Bilateral leg weakness) Skin: Reports: No Symptoms Exam - Exam Exam: See Below - Vital Signs Vital Signs: Last Vital Signs Temp 36.6 C 11/09/17 10:45 Pulse 76 11/09/17 10:45 Resp 17 11/09/17 10:45 BP 129/78 11/09/17 10:45 Pulse Ox 97 11/09/17 10:45 Weight: 164 lb - Exam General: Alert, Oriented Back Exam: Normal Inspection Extremities: Normal Inspection, Normal Range of Motion, Non-Tender, No Pedal Edema, Normal Capillary Refill Peripheral Pulses: 2+: Dorsalis Pedis (L), Dorsalis Pedis (R) Skin: Warm, Dry, Intact Neuro Extensive - Mental Status: Alert, Oriented x3 - Patient Data Result Diagrams: 11/05/17 11:35 11/09/17 08:15 Consult PN Assessment/Plan Procedures: Procedures AIRWAY INHALATION TREATMENT (08/13/17) ASSAY OF BLOOD/URIC ACID (11/01/17) BLOOD TYPING SEROLOGIC ABO (09/21/17) BLOOD TYPING SEROLOGIC RH(D) (09/21/17) CARDIOVASCULAR STRESS TEST (02/28/14) CHEST X-RAY 1 VIEW FRONTAL (09/21/17) CHEST X-RAY 2VW FRONTAL&LATL (11/27/16) COMPLETE CBC AUTOMATED (09/21/17) COMPLETE CBC W/AUTO DIFF WBC (10/16/17) COMPREHEN METABOLIC PANEL (10/16/17) CONTRAST X-RAY OF KNEE JOINT (04/02/17) CT ABD & PELV 1/> REGNS (07/11/15) CT HEAD/BRAIN W/O DYE (10/17/14) CT LOWER EXTREMITY W/O DYE (04/02/17) CT LUMBAR SPINE W/O DYE (08/10/17) CT UPPER EXTREMITY W/O DYE (11/01/17) CULTR BACTERIA EXCEPT BLOOD (09/21/17) CULTURE AEROBIC IDENTIFY (09/21/17) CULTURE OTHR SPECIMN AEROBIC (09/21/17) ELECTROCARDIOGRAM REPORT (08/12/17) ELECTROCARDIOGRAM TRACING (08/12/17) EMERGENCY DEPT VISIT (10/16/17) FLUOROSCOPE EXAM EXTENSIVE (05/12/17) FLUOROSCOPY <1 HR PHYS/QHP (08/13/17) HT MUSCLE IMAGE SPECT MULT (02/28/14) INSERT TEMP BLADDER CATH (08/13/17) MEASURE BLOOD OXYGEN LEVEL (09/21/17) METABOLIC PANEL TOTAL CA (08/13/17) MICROBE SUSCEPTIBLE VIKI (09/21/17) MYELOGRAPHY L-S SPINE (08/10/17) NEG PRESS WOUND TX </=50 CM (09/21/17) NJX INTERLAMINAR LMBR/SAC (05/05/17) OFFICE/OUTPATIENT VISIT EST (07/19/17) ORTHOTIC MGMT&TRAINJ 1ST ENC (08/12/17) OT EVAL LOW COMPLEX 30 MIN (08/13/17) POSTOP FOLLOW-UP VISIT (09/13/17) PT EVAL LOW COMPLEX 20 MIN (08/13/17) RBC ANTIBODY SCREEN (09/21/17) ROUTINE VENIPUNCTURE (11/01/17) SELF CARE MNGMENT TRAINING (08/12/17) SMEAR GRAM STAIN (09/21/17) THER/PROPH/DIAG INJ SC/IM (10/16/17) THERAPEUTIC ACTIVITIES (08/13/17) THERAPEUTIC EXERCISES (08/13/17) URINALYSIS AUTO W/O SCOPE (09/06/17) X-RAY EXAM KNEE 4 OR MORE (05/10/17) X-RAY EXAM L-2 SPINE 4/>VWS (04/12/17) X-RAY EXAM L-S SPINE 2/3 VWS (08/30/17) X-RAY EXAM OF FOREARM (11/01/17) X-RAY EXAM OF HUMERUS (11/01/17) X-RAY EXAM OF PELVIS (04/12/17) Problem List Initiated/Reviewed/Updated: Yes Plan: The patient has good range of motion noted of bilateral lower extremities at this time. She is quite fidgety at times. Due to her concern I am going to get a neurology consult to see if there is something else going on. At this time I do feel that her imaging shows great results from her back fusion. All screws are in proper position no lucency noted. Her back is healed up well. We will see the patient back in 6 months time in the meantime I am going to refer her to neurology for follow-up.
== END 2017-11-09 13:30 | DRG 550 ==
LOC: JP.ED 10:39 → JP.MS 15:42
PROVIDERS: ADMIT Internal Medicine; ATTEND Internal Medicine
DX: M00.022 Staphylococcal arthritis, left elbow (principal); B95.62 Methicillin resistant Staphylococcus aureus infection as the cause of diseases classified elsewhere; I10 Essential (primary) hypertension; E87.6 Hypokalemia; J44.9 Chronic obstructive pulmonary disease, unspecified; Z87.891 Personal history of nicotine dependence; M25.422 Effusion, left elbow; M25.522 Pain in left elbow; I25.10 Atherosclerotic heart disease of native coronary artery without angina pectoris; I25.2 Old myocardial infarction; G47.30 Sleep apnea, unspecified; Z86.14 Personal history of Methicillin resistant Staphylococcus aureus infection; Z98.1 Arthrodesis status; M54.9 Dorsalgia, unspecified; G89.29 Other chronic pain; Z99.81 Dependence on supplemental oxygen; Z95.0 Presence of cardiac pacemaker; Z95.5 Presence of coronary angioplasty implant and graft; H54.7 Unspecified visual loss; R20.0 Anesthesia of skin; R53.1 Weakness
CPT/HCPCS: 36415; 51702; 72100; 72100-26; 73070-26-LT; 73070-LT; 76001; 76001-26; 80048; 80202; 82565; 83735; 84550; 85025; 85651; 86140; 87070; 87077; 87186; 87205; 94640; 97110-GP; 97162-GP; 97530-GP; 99285; A9270-GY; J1650; J1940; J2060; J2185; J3370; J3480; J7050; J7605

== ENCOUNTER 2017-11-10 09:07 | Inpatient (IN) | payer MEDICARE, BC ==
--- NOTE | 2017-11-10 09:34 | EDM.PDOC ---
ED HPI GENERAL MEDICAL PROBLEM - General Chief Complaint: Respiratory Problem Stated Complaint: [facility] Time Seen by Provider: 11/10/17 09:15 Source of Information: Reports: Patient, Provider History Limitations: Reports: No Limitations - History of Present Illness INITIAL COMMENTS - FREE TEXT/NARRATIVE: 81-year-old female was discharged from the hospital yesterday after treatment for MRSA in her elbow has developed increasing shortness of breath over the past 24-48 hours. This morning she was hyperventilating which did not respond to rebreathing so was sent in for an evaluation. A DuoNeb was given in route. She still has moderate shortness of breath, increased respiratory rate at 32-40 , O2 saturations 88% on room air. ABGs were obtained on room air. She has no fever or chills, she feels nauseous but no vomiting. Onset: Gradual (Over the past 2 days) Severity: Moderate Associated Symptoms: Reports: Shortness of Breath, Weakness, Other (Nausea only , no vomiting). Denies: Fever/Chills, Headaches - Related Data Allergies Allergy/AdvReac Type Severity Reaction Status Date / Time No Known Allergies Allergy Verified 11/05/17 10:55 Home Meds: Home Meds Amiodarone HCl 200 mg PO DAILY 04/02/17 [History] Acetaminophen [Tylenol] 650 mg PO Q4H PRN 09/06/17 [History] *Prostat 1 oz PO BID 11/05/17 [History] Acetaminophen/oxyCODONE [Percocet 325-5 MG] 5 - 325 mg PO Q4HR PRN 11/05/17 [ History] Gabapentin [Neurontin] 300 mg PO TID 11/05/17 [History] Lactobacillus Acidophilus [Probiotic] 2 cap PO BID 11/05/17 [History] Linezolid [Zyvox] 600 mg PO BID 11/05/17 [History] Loperamide [Imodium AD] 2 mg PO DAILY PRN 11/05/17 [History] Metronidazole [IJD: metroNIDAZOLE] 500 mg PO TID 11/05/17 [History] Multivitamin Plus Zinc 1 cap PO DAILY 11/05/17 [History] Naproxen Sodium 220 mg PO TID PRN 11/05/17 [History] traMADol HCl [Tramadol HCl] 50 mg PO Q4HR PRN 11/05/17 [History] Doxycycline Monohydrate 100 mg PO BID 6 Days #12 capsule 11/09/17 [Rx] Arformoterol [Brovana] 15 mcg IH BID 11/10/17 [History] Past Medical History HEENT History: Reports: Cataract, Impaired Vision Cardiovascular History: Reports: Arrhythmia, CAD, High Cholesterol, [place], Pacemaker, Stents Respiratory History: Reports: COPD, Sleep Apnea, Other (See Below) Other Respiratory History: uses home O2 at night Gastrointestinal History: Reports: Cholelithiasis Genitourinary History: Reports: Urinary Incontinence [employer] History: Reports: Musculoskeletal History: Reports: Back Pain, Chronic, Other (See Below) Other Musculoskeletal History: R hip and R leg pain. s/p lumbar fusion. Endocrine/Metabolic History: Reports: Other (See Below) Other Endocrine/Metabolic History: hypoglycemia Dermatologic History: Reports: Cellulitis - Infectious Disease History Infectious Disease History: Reports: MRSA - Past Surgical History HEENT Surgical History: Reports: Cataract Surgery GI Surgical History: Reports: Appendectomy, Cholecystectomy, Colonoscopy Female Surgical History: Reports: Hysterectomy, Salpingo-Oophorectomy Neurological Surgical History: Reports: Lumbar Spine Social & Family History - Family History Family Medical History: Noncontributory - Tobacco Use Smoking Status *Q: Unknown Ever Smoked Years of Tobacco use: 60 Packs/Tins Daily: 1 Used Tobacco, but Quit: Yes Month Tobacco Last Used: 10 YEARS AGO Second Hand Smoke Exposure: No - Caffeine Use Caffeine Use: Reports: Coffee - Recreational Drug Use Recreational Drug Use: No ED ROS GENERAL - Review of Systems Review Of Systems: See Below Constitutional: Reports: Malaise, Weakness HEENT: Denies: Throat Pain, Throat Swelling Respiratory: Reports: Shortness of Breath, Cough. Denies: Sputum Cardiovascular: Denies: Chest Pain GI/Abdominal: Reports: Nausea. Denies: Abdominal Pain : Reports: No Symptoms Neurological: Reports: Weakness. Denies: Headache Psychiatric: Reports: Anxiety ED EXAM, GENERAL - Physical Exam Exam: See Below Exam Limited By: No Limitations General Appearance: Alert, Anxious, Mild Distress Head: Atraumatic Respiratory/Chest: Respiratory Distress (Mild respiratory distress and increase effort), Crackles (Diffuse chronic sounding crackles bilaterally, scattered expiratory wheezes) Cardiovascular: Regular Rate, Rhythm, Systolic Murmur GI/Abdominal: Soft, Non-Tender Extremities: Pedal Edema (Just a trace of bilateral pedal edema, symmetric) Neurological: Alert, Oriented Psychiatric: Anxious Course - Vital Signs Last Recorded V/S: Last Vital Signs Temp 98.9 F 11/10/17 15:00 Pulse 81 11/10/17 15:00 Resp 18 11/10/17 15:00 BP 121/60 11/10/17 15:00 Pulse Ox 100 11/10/17 15:00 - Orders/Labs/Meds Orders: Active Orders 24 hr Category Date Time Status Iopamidol [Isovue-370 (76%)] Med 11/10/17 10:30 Active 85 ml IV . DIRECTED Sodium Chloride 0.9% [Saline Flush] Med 11/10/17 09:45 Active 10 ml FLUSH ASDIRECTED PRN Sodium Chloride 0.9% [Saline Flush] Med 11/10/17 10:22 Active 10 ml FLUSH ONETIME PRN Saline Lock Insert [OM.PC] Routine Oth 11/10/17 09:45 Ordered Medication Orders Acetaminophen (Tylenol) 650 mg PO Q4H PRN PRN Reason: Pain Amiodarone HCl (Cordarone) 200 mg PO DAILY [facility] Arformoterol Tartrate (Brovana) 15 mcg NEB BIDRT [facility] Doxycycline Hyclate (Vibramycin) 100 mg PO BID [facility] Last Admin: 11/10/17 15:39 Dose: 100 mg Furosemide (Lasix) 20 mg PO BID [facility] Gabapentin (Neurontin) 300 mg PO TID [facility] Last Admin: 11/10/17 15:39 Dose: 300 mg Iopamidol (Isovue-370 (76%)) 85 ml IV . DIRECTED [facility] Last Admin: 11/10/17 10:49 Dose: 85 ml Loperamide HCl (Imodium) 2 mg PO DAILY PRN PRN Reason: Diarrhea Metronidazole (Metronidazole) 500 mg PO TID [facility] Last Admin: 11/10/17 15:38 Dose: 500 mg Multivitamins/Minerals (Thera M Plus) 1 tab PO DAILY [facility] Naproxen (Naproxen Sodium) 220 mg PO TID PRN PRN Reason: Pain Non-Formulary Medication (Lactobacillus Acidophilus [Probiotic]) 2 cap PO BID [facility] Sodium Chloride (Saline Flush) 10 ml FLUSH ASDIRECTED PRN PRN Reason: Keep Vein Open Last Admin: 11/10/17 10:09 Dose: 10 ml Sodium Chloride (Saline Flush) 10 ml FLUSH ONETIME PRN PRN Reason: PER RADIOLOGY PROTOCOL Last Admin: 11/10/17 10:49 Dose: 10 ml Tramadol HCl (Ultram) 50 mg PO Q4H PRN PRN Reason: Pain (severe 7-10) Labs: Laboratory Tests 11/10/17 11/10/17 11/10/17 Range/Units 09:21 09:21 09:43 D-Dimer, Quantitative 2990 H (0.0-400.0) ng/mL Puncture Site Rt radial ABG pH 7.480 H (7.350-7.450) ABG pCO2 26.7 L (35.0-42.0) mmHg ABG pO2 66.8 L (75.0-100.0) mmHg ABG HCO3 19.7 L (22.0-26.0) mmol/L ABG Total CO2 17.8 L (21.0-25.0) mmol/L ABG O2 Saturation 93.6 L (95.0-98.0) % ABG O2 Content 14.4 L (15.0-23.0) %vol ABG Base Excess -2.4 mm/L ABG Hemoglobin 11.2 L (12.0-16.0) g/dL ABG Oxyhemoglobin 91.7 % ABG Carboxyhemoglobin 1.5 (0.0-1.6) % ABG Methemoglobin 0.5 % Jovan Test Not performed O2 Delivery Device Room air Troponin I 0.159 H* (0.000-0.056) ng/mL Meds: Medications Generic Name Dose Route Start Last Admin Trade Name Freq PRN Reason Stop Dose Admin Acetaminophen 650 mg 11/10/17 12:28 Tylenol PO Q4H PRN Pain Amiodarone HCl 200 mg 11/11/17 09:00 Cordarone PO DAILY [facility] Arformoterol Tartrate 15 mcg 11/10/17 21:00 Brovana NEB BIDRT [facility] Doxycycline Hyclate 100 mg 11/10/17 16:00 11/10/17 15:39 Vibramycin PO 100 mg BID [facility] Administration Furosemide 20 mg 11/10/17 21:00 Lasix PO BID [facility] Gabapentin 300 mg 11/10/17 14:00 11/10/17 15:39 Neurontin PO 300 mg TID [facility] Administration Iopamidol 85 ml 11/10/17 10:30 11/10/17 10:49 Isovue-370 (76%) IV 85 ml . DIRECTED [facility] Administration Loperamide HCl 2 mg 11/10/17 12:28 Imodium PO DAILY PRN Diarrhea Metronidazole 500 mg 11/10/17 14:00 11/10/17 15:38 Metronidazole PO 500 mg TID [facility] Administration Multivitamins/Minerals 1 tab 11/11/17 09:00 Thera M Plus PO DAILY [facility] Naproxen 220 mg 11/10/17 12:28 Naproxen Sodium PO TID PRN Pain Non-Formulary Medication 2 cap 11/10/17 21:00 Lactobacillus Acidophilus [Probiotic] PO BID [facility] Sodium Chloride 10 ml 11/10/17 09:45 11/10/17 10:09 Saline Flush FLUSH 10 ml ASDIRECTED PRN Administration Keep Vein Open Sodium Chloride 10 ml 11/10/17 10:22 11/10/17 10:49 Saline Flush FLUSH 10 ml ONETIME PRN Administration PER RADIOLOGY PROTOCOL Tramadol HCl 50 mg 11/10/17 12:28 Ultram PO Q4H PRN Pain (severe 7-10) Discontinued Medications Generic Name Dose Route Start Last Admin Trade Name Freq PRN Reason Stop Dose Admin Furosemide 20 mg 11/10/17 10:02 11/10/17 10:07 Lasix IVPUSH 11/10/17 10:03 20 mg ONETIME ONE Administration Sodium Chloride 80 mls @ 3 mls/sec 11/10/17 10:22 11/10/17 10:49 Normal Saline IV 11/10/17 10:23 3 mls/sec ONETIME ONE Administration - Re-Assessments/Exams Free Text/Narrative Re-Assessment/Exam: 11/10/17 09:33 ABGs and a d-dimer were obtained. CMP was just obtained yesterday, not repeated. 11/10/17 10:05 Chest x-ray shows congestive heart failure. D-dimer is 2990 and troponin is mildly elevated at 0.15. She was given 20 mg of IV Lasix 11/10/17 10:16 After discussion with her primary provider, a CT chest angiogram to rule out PE was ordered. Patient was improving and feeling better. 11/10/17 11:18 CT chest revealed congestive failure with effusions but no PE. Dr. Brownlee is going to evaluate the patient to admit for diuresis and serial troponin evaluation. 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 DIRECTED - Assessment/Plan Last 24 Hours: My Active Orders 11/10/17 09:45 Sodium Chloride 0.9% [Saline Flush] 10 ml FLUSH ASDIRECTED PRN Saline Lock Insert [OM.PC] Routine 11/10/17 10:22 Sodium Chloride 0.9% [Saline Flush] 10 ml FLUSH ONETIME PRN 11/10/17 10:30 Iopamidol [Isovue-370 (76%)] 85 ml IV . DIRECTED
[2017-11-10] MEDS ORDERED: Sodium Chloride 0.9% 10 ML Syringe FLUSH PRN ×2 (09:45→10:22)
--- NOTE | 2017-11-10 10:00 | CR ---
Pacer with AICD leads. There is diffuse interstitial thickening indicating interstitial edema and tra ce pleural effusions. This is new compared to prior examination.
[2017-11-10] MEDS ORDERED: Furosemide 20 MG/2 ML VIAL IVPUSH ONE (10:02)
[2017-11-10] MEDS ORDERED: Sodium Chloride 0.9% 80 ML IV ONE (10:22)
[2017-11-10] MEDS ORDERED: Iopamidol 755 Mg/ML 100 ML Bottle IV SCH (10:30)
--- NOTE | 2017-11-10 11:09 | CT ---
CTA chest Indication: Pulmonary embolus. Total DLP 225. Findings: No pulmonary artery embolus. No pericardial effusion. Cardiomegaly is mild. Small-moderate bilateral pleural effusions. Small areas of groundglass density with interstitial thickening. Mild co mpressive atelectasis within the lung bases. Atherosclerotic aorta. There is mildly prominent right h ilar and mediastinal lymph nodes. Large thyroid gland with nodularity extending into the mediastinum. This can be seen in goiter. This appears fairly similar compared to 2009 study. Impression: 1. No pulmonary embolus. 2. Bilateral pleural effusions with interstitial thickening and groundglass densities can be seen in CHF. 3. Mildly prominent lymph nodes within the chest.
[2017-11-10] MEDS ORDERED: traMADol 50 MG Tab PO PRN (12:28)
[2017-11-10] MEDS ORDERED: Acetaminophen 325 MG Tab PO PRN (12:28)
[2017-11-10] MEDS ORDERED: Loperamide 2 MG Cap PO PRN (12:28)
--- NOTE | 2017-11-10 12:37 | PCM.HP ---
H&P History of Present Illness - General Date of Service: 11/10/17 Admit Problem/Dx: Admission Diagnosis/Problem Admission Diagnosis/Problem Pulmonary edema Source of Information: EMS, EMS Notes Reviewed, [facility] History Limitations: Reports: No Limitations, Respiratory Distress - History of Present Illness Initial Comments - Free Text/Narative: She went to the [place] yesterday and this morning she became acutely short of breath. At first I thought it was hyperventilation but her lungs were in distress with rhonchi. After coming to the ER it was evident she was in pulmonary edema and an admission was advised. Onset of Symptoms: Reports: Sudden Location: Reports: Chest Associated Symptoms: Reports: Diaphoresis, Shortness of Breath, Weakness - Related Data Allergies/Adverse Reactions: Allergies Allergy/AdvReac Type Severity Reaction Status Date / Time No Known Allergies Allergy Verified 11/05/17 10:55 Home Medications: Home Meds Amiodarone HCl 200 mg PO DAILY 04/02/17 [History] Acetaminophen [Tylenol] 650 mg PO Q4H PRN 09/06/17 [History] *Prostat 1 oz PO BID 11/05/17 [History] Gabapentin [Neurontin] 300 mg PO TID 11/05/17 [History] Lactobacillus Acidophilus [Probiotic] 2 cap PO BID 11/05/17 [History] Loperamide [Imodium AD] 2 mg PO DAILY PRN 11/05/17 [History] Metronidazole [IJD: metroNIDAZOLE] 500 mg PO TID 11/05/17 [History] Naproxen Sodium 220 mg PO TID PRN 11/05/17 [History] Doxycycline Monohydrate 100 mg PO BID 6 Days #12 capsule 11/09/17 [Rx] Arformoterol [Brovana] 15 mcg IH BID 11/10/17 [History] Carvedilol [Coreg] 3.125 mg PO BID tablet 11/12/17 [Rx] Furosemide [Lasix] 20 mg PO BID tablet 11/12/17 [Rx] Potassium Chloride [Klor-Con M20] 20 meq PO BIDMEALS tab.er 11/12/17 [Rx] Spironolactone [Aldactone] 25 mg PO DAILY tablet 11/12/17 [Rx] traMADol HCl [Tramadol HCl] 50 mg PO Q12HR PRN #0 11/12/17 [Rx] Past Medical History HEENT History: Reports: Cataract, Impaired Vision Cardiovascular History: Reports: Arrhythmia, CAD, High Cholesterol, [place], Pacemaker, Stents Respiratory History: Reports: COPD, Sleep Apnea, Other (See Below) Other Respiratory History: uses home O2 at night Gastrointestinal History: Reports: Cholelithiasis Genitourinary History: Reports: Urinary Incontinence [employer] History: Reports: Musculoskeletal History: Reports: Back Pain, Chronic, Other (See Below) Other Musculoskeletal History: R hip and R leg pain. s/p lumbar fusion. Endocrine/Metabolic History: Reports: Other (See Below) Other Endocrine/Metabolic History: hypoglycemia Dermatologic History: Reports: Cellulitis - Infectious Disease History Infectious Disease History: Reports: MRSA - Past Surgical History HEENT Surgical History: Reports: Cataract Surgery GI Surgical History: Reports: Appendectomy, Cholecystectomy, Colonoscopy Female Surgical History: Reports: Hysterectomy, Salpingo-Oophorectomy Neurological Surgical History: Reports: Lumbar Spine Social & Family History - Family History Family Medical History: Noncontributory - Tobacco Use Smoking Status *Q: Unknown Ever Smoked Years of Tobacco use: 60 Packs/Tins Daily: 1 Used Tobacco, but Quit: Yes Month Tobacco Last Used: 10 YEARS AGO Second Hand Smoke Exposure: No - Caffeine Use Caffeine Use: Reports: Coffee - Recreational Drug Use Recreational Drug Use: No H&P Review of Systems - Review of Systems: Review Of Systems: See Below General: Reports: Weakness, Fatigue HEENT: Reports: No Symptoms Pulmonary: Reports: Shortness of Breath Cardiovascular: Reports: Dyspnea on Exertion, Orthopnea Gastrointestinal: Reports: No Symptoms Genitourinary: Reports: No Symptoms Musculoskeletal: Reports: No Symptoms Skin: Reports: No Symptoms Psychiatric: Reports: No Symptoms Neurological: Reports: No Symptoms Exam - Exam Exam: See Below - Vital Signs Vital Signs: Last Vital Signs Temp 97.8 F 11/10/17 09:11 Pulse 87 11/10/17 11:44 Resp 34 H 11/10/17 11:44 BP 137/89 11/10/17 11:44 Pulse Ox 98 11/10/17 11:44 Weight: 163 lb 12.855 oz - Exam General: Alert, Oriented, 4 HEENT: PERRLA, Hearing Intact, Mucosa Moist & [place]ald, Nares Patent, Normal Nasal Septum, Posterior Pharynx Clear, Conjunctiva Clear, EOMI, EACs Clear, TMs Clear Neck: Supple, Trachea Midline, 2 Lungs: Rhonchi Cardiovascular: Regular Rate GI/Abdominal Exam: Normal Bowel Sounds, Soft, Non-Tender, No Organomegaly, No Distention, No Abnormal Bruit, No Mass, Pelvis Stable Back Exam: Normal Inspection, Full Range of Motion, NT Extremities: Other (+1 edema) Skin: Warm, Dry, Intact Neuro Extensive - Mental Status: Alert, Oriented x3, Normal Mood/Affect, Normal Cognition - Patient Data Lab Results Last 24 hrs: Laboratory Results - last 24 hr 11/10/17 11/10/17 11/10/17 Range/Units 09:21 09:21 09:43 D-Dimer, Quantitative 2990 H (0.0-400.0) ng/mL Puncture Site Rt radial ABG pH 7.480 H (7.350-7.450) ABG pCO2 26.7 L (35.0-42.0) mmHg ABG pO2 66.8 L (75.0-100.0) mmHg ABG HCO3 19.7 L (22.0-26.0) mmol/L ABG Total CO2 17.8 L (21.0-25.0) mmol/L ABG O2 Saturation 93.6 L (95.0-98.0) % ABG O2 Content 14.4 L (15.0-23.0) %vol ABG Base Excess -2.4 mm/L ABG Hemoglobin 11.2 L (12.0-16.0) g/dL ABG Oxyhemoglobin 91.7 % ABG Carboxyhemoglobin 1.5 (0.0-1.6) % ABG Methemoglobin 0.5 % Jovan Test Not performed O2 Delivery Device Room air Troponin I 0.159 H* (0.000-0.056) ng/mL Result Diagrams: 11/12/17 05:45 11/12/17 05:45 *Q Meaningful Use (ADM) - VTE *Q VTE Criteria *Q: - Stroke *Q Stroke Criteria *Q: - AMI *Q AMI Criteria *Q: Problem List Initiated/Reviewed/Updated: Yes Orders Last 24hrs: Active Orders 24 hr Category Date Time Status Patient Status [ADT] Routine ADT 11/10/17 12:23 Ordered Ambulate [RC] QID Care 11/10/17 12:23 Ordered Cardiac Monitoring [RC] .As Directed Care 11/10/17 12:26 Ordered Tim Catheter Insertion [Insert Urinary Catheter] [OM. Care 11/10/17 12:45 Ordered PC] Q24H Height and Weight [RC] DAILY Care 11/10/17 12:23 Ordered Intake and Output [RC] QSHIFT Care 11/10/17 12:25 Ordered Oxygen Therapy [RC] PRN Care 11/10/17 12:23 Ordered Up to Chair [RC] QID Care 11/10/17 12:23 Ordered Urinary Catheter Assessment [RC] ASDIRECTED Care 11/10/17 12:34 Ordered VTE/DVT Education [RC] Per Unit Routine Care 11/10/17 12:23 Ordered Vital Signs [RC] Q4H Care 11/10/17 12:23 Ordered BASIC METABOLIC PANEL,BMP [CHEM] DAILY Lab 11/11/17 05:11 Ordered CREATINE KINASE,CK [CHEM] Stat Lab 11/10/17 12:35 Ordered TROPONIN I [CHEM] Stat Lab 11/10/17 12:35 Ordered Acetaminophen [Tylenol] Med 11/10/17 12:28 Ordered 650 mg PO Q4H PRN Amiodarone [Cordarone] Med 11/11/17 09:00 Ordered 200 mg PO DAILY Arformoterol [Brovana] Med 11/10/17 21:00 Ordered 15 mcg NEB BID Doxycycline Monohydrate [Doxycycline Monohydrate] Med 11/10/17 21:00 Ordered 100 mg PO BID Doxycycline [Vibramycin] Med 11/10/17 12:45 Ordered 100 mg PO Q12H Furosemide [Lasix] Med 11/10/17 21:00 Ordered 20 mg PO BID Gabapentin [Neurontin] Med 11/10/17 14:00 Ordered 300 mg PO TID Iopamidol [Isovue-370 (76%)] Med 11/10/17 10:30 Active 85 ml IV . DIRECTED Lactobacillus Acidophilus [Probiotic] Med 11/10/17 21:00 Ordered 2 cap PO BID Loperamide [Imodium AD] Med 11/10/17 12:28 Ordered 2 mg PO DAILY PRN Metronidazole [IJD: metroNIDAZOLE] Med 11/10/17 14:00 Ordered 500 mg PO TID Multivitamin Plus Zinc Med 11/11/17 09:00 Ordered 1 cap PO DAILY Naproxen Sodium Med 11/10/17 12:28 Ordered 220 mg PO TID PRN Sodium Chloride 0.9% [Saline Flush] Med 11/10/17 09:45 Active 10 ml FLUSH ASDIRECTED PRN Sodium Chloride 0.9% [Saline Flush] Med 11/10/17 10:22 Active 10 ml FLUSH ONETIME PRN traMADol [Ultram] Med 11/10/17 12:28 Ordered 50 mg PO Q4HR PRN Saline Lock Insert [OM.PC] Routine Oth 11/10/17 09:45 Ordered Resuscitation Status Routine Resus Stat 11/10/17 12:23 Ordered Medication Orders Acetaminophen (Tylenol) 650 mg PO Q4H PRN PRN Reason: Pain Amiodarone HCl (Cordarone) 200 mg PO DAILY [facility] Arformoterol Tartrate (Brovana) 15 mcg NEB BID [facility] Doxycycline Hyclate (Vibramycin) 100 mg PO Q12H [facility] Furosemide (Lasix) 20 mg PO BID [facility] Gabapentin (Neurontin) 300 mg PO TID [facility] Iopamidol (Isovue-370 (76%)) 85 ml IV . DIRECTED [facility] Last Admin: 11/10/17 10:49 Dose: 85 ml Naproxen (Naproxen Sodium) 220 mg PO TID PRN PRN Reason: Pain Non-Formulary Medication (Doxycycline Monohydrate [Doxycycline Monohydrate]) 100 mg PO BID [facility] Non-Formulary Medication (Lactobacillus Acidophilus [Probiotic]) 2 cap PO BID [facility] Non-Formulary Medication (Loperamide [Imodium Ad]) 2 mg PO DAILY PRN PRN Reason: Diarrhea Non-Formulary Medication (Metronidazole [Ijd: Metronidazole]) 500 mg PO TID [facility] Non-Formulary Medication (Multivitamin Plus Zinc) 1 cap PO DAILY [facility] Sodium Chloride (Saline Flush) 10 ml FLUSH ASDIRECTED PRN PRN Reason: Keep Vein Open Last Admin: 11/10/17 10:09 Dose: 10 ml Sodium Chloride (Saline Flush) 10 ml FLUSH ONETIME PRN PRN Reason: PER RADIOLOGY PROTOCOL Last Admin: 11/10/17 10:49 Dose: 10 ml Tramadol HCl (Ultram) 50 mg PO Q4HR PRN PRN Reason: Pain (severe 7-10) Assessment/Plan Comment:: Assessment/Plan: #1. Pulmonary edema: Have started on Lasix to relieve the fluid. Also started Coreg and Aldactone and Lisinopril small dosis of each. Echocardiogram pending tomorrow. #2. MRSA infection of the left elbow. Will continue with Doxycycline. #3. Elevation of Trop. Will check serial values. Will get a EKG. #4. COPD, Emphysema. Will give nebs #5. C-Dif infection: cont. with metronidazole.
[2017-11-10] MEDS: metroNIDAZOLE 250 MG Tab PO SCH ×2 (15:38→21:51)
[2017-11-10] MEDS: Doxycycline 100 MG Cap PO SCH ×2 (15:39→21:51)
[2017-11-10] MEDS: Gabapentin 300 MG Cap PO SCH ×2 (15:39→21:51)
[2017-11-10] MEDS ORDERED: DOXYCYCLINE MONOHYDRATE 100 MG PO SCH (21:00)
[2017-11-10] MEDS ORDERED: LACTOBACILLUS ACIDOPHILUS PO SCH (21:00)
[2017-11-10] MEDS: Arformoterol 15 MCG/2 ML Neb Soln NEB SCH (21:32)
[2017-11-10] MEDS ORDERED: Lactobacillus Rhamnosus GG (Probiotic) Cap ONE (21:35)
[2017-11-10] MEDS: Carvedilol 3.125 MG Tab PO SCH (21:50)
[2017-11-10] MEDS: Furosemide 20 MG Tab PO SCH (21:51)
[2017-11-11] MEDS: Arformoterol 15 MCG/2 ML Neb Soln NEB SCH ×2 (08:21→20:37)
[2017-11-11] MEDS: Lisinopril 2.5 MG Tab PO SCH (08:58)
[2017-11-11] MEDS: Gabapentin 300 MG Cap PO SCH ×3 (08:58→20:38)
[2017-11-11] MEDS: Doxycycline 100 MG Cap PO SCH ×2 (08:59→20:37)
[2017-11-11] MEDS: Carvedilol 3.125 MG Tab PO SCH ×2 (08:59→20:38)
[2017-11-11] MEDS: Amiodarone 200 MG Tab PO SCH (08:59)
[2017-11-11] MEDS: Furosemide 20 MG Tab PO SCH ×2 (08:59→20:38)
[2017-11-11] MEDS: Multivitamins with Iron/Calcium/Folic Acid/Minerals Tab PO SCH (08:59)
[2017-11-11] MEDS: metroNIDAZOLE 250 MG Tab PO SCH ×3 (08:59→20:37)
[2017-11-11] MEDS: Lactobacillus Rhamnosus GG (Probiotic) Cap PO SCH ×2 (08:59→20:37)
[2017-11-11] MEDS: Spironolactone 25 MG Tab PO SCH (11:26)
--- NOTE | 2017-11-11 16:03 | PCM.PN ---
- General Info Date of Service: 11/11/17 Functional Status: Reports: Pain Controlled - Review of Systems General: Reports: Weakness HEENT: Reports: No Symptoms Pulmonary: Reports: Shortness of Breath Cardiovascular: Reports: No Symptoms Gastrointestinal: Reports: No Symptoms Genitourinary: Reports: No Symptoms Musculoskeletal: Reports: No Symptoms Skin: Reports: No Symptoms Neurological: Reports: No Symptoms Psychiatric: Reports: No Symptoms - Patient Data Vitals - Most Recent: Last Vital Signs Temp 98.6 F 11/11/17 15:36 Pulse 63 11/11/17 15:36 Resp 18 11/11/17 11:45 BP 111/69 11/11/17 15:36 Pulse Ox 96 11/11/17 15:36 Weight - Most Recent: 152 lb 12.803 oz I&O - Last 24 Hours: Intake & Output 11/11/17 11/11/17 11/11/17 06:59 14:59 22:59 Intake Total 600 Output Total 650 365 Balance -650 235 Lab Results Last 24 Hours: Laboratory Results - last 24 hr 11/10/17 11/11/17 11/11/17 Range/Units 18:00 02:00 05:00 WBC (4.5-11.0) K/uL RBC (3.30-5.50) M/uL Hgb (12.0-15.0) g/dL Hct (36.0-48.0) % MCV (80-98) fL MCH (27-31) pg MCHC (32-36) % Plt Count (150-400) K/uL Neut % (Auto) (36-66) % Lymph % (Auto) (24-44) % [place] % (Auto) (2-6) % Eos % (Auto) (2-4) % Baso % (Auto) (0-1) % Sodium 140 (140-148) mmol/L Potassium 3.1 L (3.6-5.2) mmol/L Chloride 105 (100-108) mmol/L Carbon Dioxide 28 (21-32) mmol/L Anion Gap 10.1 (5.0-14.0) mmol/L BUN 10 (7-18) mg/dL Creatinine 0.8 (0.6-1.0) mg/dL Est Cr Clr Drug Dosing 49.63 mL/min Estimated GFR (MDRD) > 60 (>60) Glucose 88 (74-106) mg/dL Calcium 8.0 L (8.5-10.1) mg/dL Total Bilirubin 0.5 (0.2-1.0) mg/dL AST 124 H D (15-37) U/L ALT 31 (12-78) U/L Alkaline Phosphatase 88 (46-116) U/L Creatine Kinase 37 (26-192) U/L Troponin I 0.166 H* 0.122 H* (0.000-0.056) ng/mL Total Protein 5.8 L (6.4-8.2) g/dL Albumin 2.1 L (3.4-5.0) g/dL Globulin 3.7 H (2.3-3.5) g/dL Albumin/Globulin Ratio 0.6 L (1.2-2.2) 11/11/17 Range/Units 05:00 WBC 8.0 (4.5-11.0) K/uL RBC 3.62 (3.30-5.50) M/uL Hgb 9.9 L (12.0-15.0) g/dL Hct 31.5 L (36.0-48.0) % MCV 87 (80-98) fL MCH 27 (27-31) pg MCHC 31 L (32-36) % Plt Count 326 (150-400) K/uL Neut % (Auto) 52 (36-66) % Lymph % (Auto) 28 (24-44) % [place] % (Auto) 17 H (2-6) % Eos % (Auto) 2 (2-4) % Baso % (Auto) 0 (0-1) % Sodium (140-148) mmol/L Potassium (3.6-5.2) mmol/L Chloride (100-108) mmol/L Carbon Dioxide (21-32) mmol/L Anion Gap (5.0-14.0) mmol/L BUN (7-18) mg/dL Creatinine (0.6-1.0) mg/dL Est Cr Clr Drug Dosing mL/min Estimated GFR (MDRD) (>60) Glucose (74-106) mg/dL Calcium (8.5-10.1) mg/dL Total Bilirubin (0.2-1.0) mg/dL AST (15-37) U/L ALT (12-78) U/L Alkaline Phosphatase (46-116) U/L Creatine Kinase (26-192) U/L Troponin I (0.000-0.056) ng/mL Total Protein (6.4-8.2) g/dL Albumin (3.4-5.0) g/dL Globulin (2.3-3.5) g/dL Albumin/Globulin Ratio (1.2-2.2) Med Orders - Current: Current Medications Acetaminophen (Tylenol) 650 mg PO Q4H PRN PRN Reason: Pain Amiodarone HCl (Cordarone) 200 mg PO DAILY [facility] Last Admin: 11/11/17 08:59 Dose: 200 mg Arformoterol Tartrate (Brovana) 15 mcg NEB BIDRT [facility] Last Admin: 11/11/17 08:21 Dose: 15 mcg Carvedilol (Coreg) 3.125 mg PO BID [facility] Last Admin: 11/11/17 08:59 Dose: 3.125 mg Doxycycline Hyclate (Vibramycin) 100 mg PO BID [facility] Last Admin: 11/11/17 08:59 Dose: 100 mg Furosemide (Lasix) 20 mg PO BID [facility] Last Admin: 11/11/17 08:59 Dose: 20 mg Gabapentin (Neurontin) 300 mg PO TID [facility] Last Admin: 11/11/17 14:53 Dose: 300 mg Lactobacillus Rhamnosus (Culturelle) 2 cap PO BID [facility] Last Admin: 11/11/17 08:59 Dose: 2 cap Lisinopril (Prinivil) 2.5 mg PO DAILY [facility] Last Admin: 11/11/17 08:58 Dose: 2.5 mg Loperamide HCl (Imodium) 2 mg PO DAILY PRN PRN Reason: Diarrhea Metronidazole (Metronidazole) 500 mg PO TID [facility] Last Admin: 11/11/17 14:53 Dose: 500 mg Multivitamins/Minerals (Thera M Plus) 1 tab PO DAILY [facility] Last Admin: 11/11/17 08:59 Dose: 1 tab Naproxen (Naproxen Sodium) 220 mg PO TID PRN PRN Reason: Pain Potassium Chloride (Klor-Con M20) 20 meq PO DAILY [facility] Sodium Chloride (Saline Flush) 10 ml FLUSH ASDIRECTED PRN PRN Reason: Keep Vein Open Last Admin: 11/10/17 10:09 Dose: 10 ml Spironolactone (Aldactone) 25 mg PO DAILY [facility] Last Admin: 11/11/17 11:26 Dose: 25 mg Tramadol HCl (Ultram) 50 mg PO Q4H PRN PRN Reason: Pain (severe 7-10) Discontinued Medications Furosemide (Lasix) 20 mg IVPUSH ONETIME ONE Stop: 11/10/17 10:03 Last Admin: 11/10/17 10:07 Dose: 20 mg Sodium Chloride (Normal Saline) 80 mls @ 3 mls/sec IV ONETIME ONE Stop: 11/10/17 10:23 Last Admin: 11/10/17 10:49 Dose: 3 mls/sec Iopamidol (Isovue-370 (76%)) 85 ml IV . DIRECTED [facility] Last Admin: 11/10/17 10:49 Dose: 85 ml Lactobacillus Rhamnosus (Culturelle) Confirm Administered Dose 2 cap .ROUTE .STK -MED ONE Stop: 11/10/17 21:36 Last Admin: 11/10/17 21:54 Dose: Not Given Non-Formulary Medication (Lactobacillus Acidophilus [Probiotic]) 2 cap PO BID [facility] Last Admin: 11/10/17 21:50 Dose: 2 cap Sodium Chloride (Saline Flush) 10 ml FLUSH ONETIME PRN PRN Reason: PER RADIOLOGY PROTOCOL Last Admin: 11/10/17 10:49 Dose: 10 ml - Exam General: Alert, Oriented HEENT: Pupils Equal, Pupils Reactive, EOMI, Mucous Membr. Moist/[place] Neck: Supple Lungs: Rhonchi Cardiovascular: Regular Rate, Regular Rhythm GI/Abdominal Exam: Normal Bowel Sounds, Soft, Non-Tender, No Organomegaly, No Distention, No Abnormal Bruit, No Mass, Pelvis Stable Extremities: Other (left elbow healing min. sweling) Peripheral Pulses: 1+: Radial (L), Radial (R) Skin: Warm, Dry, Intact - Problem List Review Problem List Initiated/Reviewed/Updated: Yes - My Orders Last 24 Hours: My Active Orders 11/10/17 16:00 Doxycycline [Vibramycin] 100 mg PO BID 11/10/17 19:48 SCD [Sequential Compression Device] [OM.PC] Routine 11/10/17 20:51 EKG 12 Lead [EK] Routine 11/10/17 21:00 Arformoterol [Brovana] 15 mcg NEB BIDRT Carvedilol [Coreg] 3.125 mg PO BID Furosemide [Lasix] 20 mg PO BID 11/10/17 Dinner 2 Gram Sodium Diet [DIET] 11/11/17 07:00 Echo Comp wo Cont [US] Routine 11/11/17 09:00 Amiodarone [Cordarone] 200 mg PO DAILY Lactobacillus Rhamnosus GG [Culturelle] 2 cap PO BID Lisinopril [Prinivil] 2.5 mg PO DAILY Multivitamins w-Iron/Ca/FA/Min [Thera M Plus] 1 tab PO DAILY Spironolactone [Aldactone] 25 mg PO DAILY 11/12/17 05:11 CXR [Chest 2V] [CR] Routine BASIC METABOLIC PANEL,BMP [CHEM] Routine CBC WITH AUTO DIFF [HEME] Routine 11/12/17 09:00 Potassium Chloride [Klor-Con M20] 20 meq PO DAILY - Plan Plan:: Assessment/Plan: #1. Pulmonary edema: Have started on Lasix to relieve the fluid. Also started Coreg and Aldactone and Lisinopril small dosis of each. Echocardiogram completed no report yet.. BP 111/69 this afternoon. CHF improved and vitals stable. #2. MRSA infection of the left elbow. Will continue with Doxycycline. #3. Elevation of Trop. Will check serial values. Will get a EKG. #4. COPD, Emphysema. Will give nebs #5. C-Dif infection: On Metronidazole #6. Hypokalemia. started K supp. today. Repeat BMP and CBC and X-ray in the morning.
[2017-11-12] MEDS: Arformoterol 15 MCG/2 ML Neb Soln NEB SCH (07:14)
[2017-11-12] MEDS ORDERED: Potassium Chloride 20 MEQ Tab.ER PO ONE (08:00)
[2017-11-12 08:13] VITALS: BP 127/74
[2017-11-12] MEDS ORDERED: Potassium Chloride 20 MEQ Tab.ER PO SCH ×2 (09:00→09:30)
--- NOTE | 2017-11-12 09:10 | CR ---
Mild cardiomegaly. No focal consolidation. Mild interstitial thickening has increased with trace pleu ral effusions. Findings concerning for mild CHF.
[2017-11-12] MEDS: Spironolactone 25 MG Tab PO SCH (09:49)
[2017-11-12] MEDS: Carvedilol 3.125 MG Tab PO SCH (09:49)
[2017-11-12] MEDS: Amiodarone 200 MG Tab PO SCH (09:50)
[2017-11-12] MEDS: Lactobacillus Rhamnosus GG (Probiotic) Cap PO SCH (09:50)
[2017-11-12] MEDS: Gabapentin 300 MG Cap PO SCH (09:50)
[2017-11-12] MEDS: metroNIDAZOLE 250 MG Tab PO SCH (09:51)
[2017-11-12] MEDS: Multivitamins with Iron/Calcium/Folic Acid/Minerals Tab PO SCH (09:51)
[2017-11-12] MEDS: Doxycycline 100 MG Cap PO SCH (09:51)
[2017-11-12] MEDS: Lisinopril 2.5 MG Tab PO SCH (09:51)
[2017-11-12] MEDS: Furosemide 20 MG Tab PO SCH (09:54)
--- NOTE | 2017-11-12 10:01 | PCM.PN ---
- General Info Date of Service: 11/12/17 Admission Dx/Problem (Free Text): She is breathing good and has no complaints. Functional Status: Reports: Pain Controlled - Review of Systems General: Reports: Weakness HEENT: Reports: No Symptoms Pulmonary: Reports: No Symptoms Cardiovascular: Reports: No Symptoms Gastrointestinal: Reports: No Symptoms Genitourinary: Reports: No Symptoms Musculoskeletal: Reports: Other (numbness legs) Skin: Reports: No Symptoms Neurological: Reports: No Symptoms Psychiatric: Reports: No Symptoms - Patient Data Vitals - Most Recent: Last Vital Signs Temp 98.1 F 11/12/17 08:10 Pulse 63 11/12/17 09:49 Resp 16 11/12/17 08:10 BP 127/74 11/12/17 09:51 Pulse Ox 96 11/12/17 08:10 Weight - Most Recent: 150 lb 9.353 oz I&O - Last 24 Hours: Intake & Output 11/11/17 11/12/17 11/12/17 22:59 06:59 14:59 Intake Total 370 720 120 Output Total 550 1250 Balance -180 -530 120 Lab Results Last 24 Hours: Laboratory Results - last 24 hr 11/12/17 11/12/17 11/12/17 Range/Units 05:45 05:45 08:34 WBC 6.5 (4.5-11.0) K/uL RBC 3.61 (3.30-5.50) M/uL Hgb 9.9 L (12.0-15.0) g/dL Hct 31.4 L (36.0-48.0) % MCV 87 (80-98) fL MCH 27 (27-31) pg MCHC 32 (32-36) % Plt Count 319 (150-400) K/uL Neut % (Auto) 44 (36-66) % Lymph % (Auto) 31 (24-44) % [place] % (Auto) 22 H (2-6) % Eos % (Auto) 3 (2-4) % Baso % (Auto) 1 (0-1) % Sodium 143 (140-148) mmol/L Potassium 2.9 L* (3.6-5.2) mmol/L Chloride 105 (100-108) mmol/L Carbon Dioxide 30 (21-32) mmol/L Anion Gap 10.9 (5.0-14.0) mmol/L BUN 10 (7-18) mg/dL Creatinine 0.8 (0.6-1.0) mg/dL Est Cr Clr Drug Dosing 49.55 mL/min Estimated GFR (MDRD) > 60 (>60) Glucose 95 (74-106) mg/dL Calcium 8.0 L (8.5-10.1) mg/dL Creatine Kinase 22 L (26-192) U/L Troponin I 0.063 H* (0.000-0.056) ng/mL Med Orders - Current: Current Medications Acetaminophen (Tylenol) 650 mg PO Q4H PRN PRN Reason: Pain Last Admin: 11/12/17 01:55 Dose: 650 mg Amiodarone HCl (Cordarone) 200 mg PO DAILY [facility] Last Admin: 11/12/17 09:50 Dose: 200 mg Arformoterol Tartrate (Brovana) 15 mcg NEB BIDRT [facility] Last Admin: 11/12/17 07:14 Dose: 15 mcg Carvedilol (Coreg) 3.125 mg PO BID [facility] Last Admin: 11/12/17 09:49 Dose: 3.125 mg Doxycycline Hyclate (Vibramycin) 100 mg PO BID [facility] Last Admin: 11/12/17 09:51 Dose: 100 mg Furosemide (Lasix) 20 mg PO BID [facility] Last Admin: 11/12/17 09:54 Dose: 20 mg Gabapentin (Neurontin) 300 mg PO TID [facility] Last Admin: 11/12/17 09:50 Dose: 300 mg Lactobacillus Rhamnosus (Culturelle) 2 cap PO BID [facility] Last Admin: 11/12/17 09:50 Dose: 2 cap Lisinopril (Prinivil) 2.5 mg PO DAILY [facility] Last Admin: 11/12/17 09:51 Dose: 2.5 mg Loperamide HCl (Imodium) 2 mg PO DAILY PRN PRN Reason: Diarrhea Metronidazole (Metronidazole) 500 mg PO TID [facility] Last Admin: 11/12/17 09:51 Dose: 500 mg Multivitamins/Minerals (Thera M Plus) 1 tab PO DAILY [facility] Last Admin: 11/12/17 09:51 Dose: 1 tab Naproxen (Naproxen Sodium) 220 mg PO TID PRN PRN Reason: Pain Potassium Chloride (Klor-Con M20) 20 meq PO BIDMEALS [facility] Last Admin: 11/12/17 09:52 Dose: 20 meq Sodium Chloride (Saline Flush) 10 ml FLUSH ASDIRECTED PRN PRN Reason: Keep Vein Open Last Admin: 11/10/17 10:09 Dose: 10 ml Spironolactone (Aldactone) 25 mg PO DAILY [facility] Last Admin: 11/12/17 09:49 Dose: 25 mg Tramadol HCl (Ultram) 50 mg PO Q4H PRN PRN Reason: Pain (severe 7-10) Discontinued Medications Furosemide (Lasix) 20 mg IVPUSH ONETIME ONE Stop: 11/10/17 10:03 Last Admin: 11/10/17 10:07 Dose: 20 mg Sodium Chloride (Normal Saline) 80 mls @ 3 mls/sec IV ONETIME ONE Stop: 11/10/17 10:23 Last Admin: 11/10/17 10:49 Dose: 3 mls/sec Iopamidol (Isovue-370 (76%)) 85 ml IV . DIRECTED [facility] Last Admin: 11/10/17 10:49 Dose: 85 ml Lactobacillus Rhamnosus (Culturelle) Confirm Administered Dose 2 cap .ROUTE .STK -MED ONE Stop: 11/10/17 21:36 Last Admin: 11/10/17 21:54 Dose: Not Given Non-Formulary Medication (Lactobacillus Acidophilus [Probiotic]) 2 cap PO BID [facility] Last Admin: 11/10/17 21:50 Dose: 2 cap Potassium Chloride (Klor-Con M20) 40 meq PO ONETIME ONE Stop: 11/12/17 08:01 Last Admin: 11/12/17 08:27 Dose: 40 meq Sodium Chloride (Saline Flush) 10 ml FLUSH ONETIME PRN PRN Reason: PER RADIOLOGY PROTOCOL Last Admin: 11/10/17 10:49 Dose: 10 ml - Exam General: Alert, Oriented HEENT: Pupils Equal Neck: Supple Lungs: Clear to Auscultation, Normal Respiratory Effort Cardiovascular: Regular Rate, Regular Rhythm GI/Abdominal Exam: Normal Bowel Sounds, Soft, Non-Tender, No Organomegaly, No Distention, No Abnormal Bruit, No Mass, Pelvis Stable Back Exam: Normal Inspection, Full Range of Motion Extremities: Other (numbness lower exrt.) Peripheral Pulses: 1+: Radial (L), Radial (R) Skin: Warm, Dry, Intact - Problem List Review Problem List Initiated/Reviewed/Updated: Yes - My Orders Last 24 Hours: My Active Orders 11/11/17 09:00 Amiodarone [Cordarone] 200 mg PO DAILY Lactobacillus Rhamnosus GG [Culturelle] 2 cap PO BID Lisinopril [Prinivil] 2.5 mg PO DAILY Multivitamins w-Iron/Ca/FA/Min [Thera M Plus] 1 tab PO DAILY Spironolactone [Aldactone] 25 mg PO DAILY 11/12/17 09:30 Potassium Chloride [Klor-Con M20] 20 meq PO BIDMEALS - Plan Plan:: Assessment/Plan: #1. Pulmonary edema: Lasix has relieved the fluid. Also started Coreg and Aldactone and Lisinopril small dosis of each. Echocardiogram completed no report yet.. BP 127/74 this afternoon. CHF improved and vitals stable. #2. MRSA infection of the left elbow. Will continue with Doxycycline. #3. Elevation of Trop. EKG showed no acute findings. Trop today 0.063 improving from earlier values. #4. COPD, Emphysema. Will give nebs #5. C-Dif infection: On Metronidazole #6. Hypokalemia. started K supp. yesterday and K 2.9 this morning so have increased K med and recheck in 7-10 days. Will d/c dto HLC today and check BMP in 7-10 days. Trop at 0.063 today and CK negative. Not from a [place].
--- NOTE | 2017-11-12 10:13 | PCM.DCSUM1 ---
Discharge Summary - Discharge Data Discharge Date: 11/12/17 Discharge Disposition: DC/Tfer to [facility] 63 Condition: Stable - Patient Summary/Data Hospital Course: Admitted in respiratory distress in pulmonary edema. Started on Lasix and added Carlo and beta aki meds and responded to the treatment. Echo report pending. K was low and have given K meds and recheck in 7-10 days - Patient Instructions Activity: As Tolerated - Discharge Plan Home Medications: Home Meds Amiodarone HCl 200 mg PO DAILY 04/02/17 [History] Acetaminophen [Tylenol] 650 mg PO Q4H PRN 09/06/17 [History] *Prostat 1 oz PO BID 11/05/17 [History] Gabapentin [Neurontin] 300 mg PO TID 11/05/17 [History] Lactobacillus Acidophilus [Probiotic] 2 cap PO BID 11/05/17 [History] Loperamide [Imodium AD] 2 mg PO DAILY PRN 11/05/17 [History] Metronidazole [IJD: metroNIDAZOLE] 500 mg PO TID 11/05/17 [History] Naproxen Sodium 220 mg PO TID PRN 11/05/17 [History] Doxycycline Monohydrate 100 mg PO BID 6 Days #12 capsule 11/09/17 [Rx] Arformoterol [Brovana] 15 mcg IH BID 11/10/17 [History] Carvedilol [Coreg] 3.125 mg PO BID tablet 11/12/17 [Rx] Furosemide [Lasix] 20 mg PO BID tablet 11/12/17 [Rx] Potassium Chloride [Klor-Con M20] 20 meq PO BIDMEALS tab.er 11/12/17 [Rx] Spironolactone [Aldactone] 25 mg PO DAILY tablet 11/12/17 [Rx] traMADol HCl [Tramadol HCl] 50 mg PO Q12HR PRN #0 11/12/17 [Rx] Forms: ED Department Discharge Referrals: Fracisco Brownlee Sr, MD [Primary Care Provider] - - Discharge Summary/Plan Comment Discharge Summary/Plan Comment: Assessment/Plan: #1. Pulmonary edema: Lasix has relieved the fluid. Also started Coreg and Aldactone and Lisinopril small dosis of each. Echocardiogram completed no report yet.. BP 127/74 this afternoon. CHF improved and vitals stable. #2. MRSA infection of the left elbow. Will continue with Doxycycline for 2 weeks total. #3. Elevation of Trop. Improving trop 0.063 today #4. COPD, Emphysema. Will give nebs #5. 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 Hypokalemia. started K supp. yesterday and K 2.9 this morning so have increased K med and recheck in 7-10 days. Will d/c dto HLC today and check BMP in 7-10 days. Trop at 0.063 today and CK negative. Not from a [place]. - General Info Date of Service: 11/12/17 Functional Status: Reports: Pain Controlled - Review of Systems General: Reports: Weakness HEENT: Reports: No Symptoms Pulmonary: Reports: No Symptoms Cardiovascular: Reports: No Symptoms Gastrointestinal: Reports: Diarrhea Genitourinary: Reports: No Symptoms Musculoskeletal: Reports: No Symptoms Skin: Reports: No Symptoms Neurological: Reports: No Symptoms Psychiatric: Reports: No Symptoms - Patient Data Vitals - Most Recent: Last Vital Signs Temp 98.1 F 11/12/17 08:10 Pulse 63 11/12/17 09:49 Resp 16 11/12/17 08:10 BP 127/74 11/12/17 09:51 Pulse Ox 96 11/12/17 08:10 Weight - Most Recent: 150 lb 9.353 oz I&O - Last 24 hours: Intake & Output 11/11/17 11/12/17 11/12/17 22:59 06:59 14:59 Intake Total 370 720 120 Output Total 550 1250 Balance -180 -530 120 Lab Results - Last 24 hrs: Laboratory Results - last 24 hr 11/12/17 11/12/17 11/12/17 Range/Units 05:45 05:45 08:34 WBC 6.5 (4.5-11.0) K/uL RBC 3.61 (3.30-5.50) M/uL Hgb 9.9 L (12.0-15.0) g/dL Hct 31.4 L (36.0-48.0) % MCV 87 (80-98) fL MCH 27 (27-31) pg MCHC 32 (32-36) % Plt Count 319 (150-400) K/uL Neut % (Auto) 44 (36-66) % Lymph % (Auto) 31 (24-44) % [place] % (Auto) 22 H (2-6) % Eos % (Auto) 3 (2-4) % Baso % (Auto) 1 (0-1) % Sodium 143 (140-148) mmol/L Potassium 2.9 L* (3.6-5.2) mmol/L Chloride 105 (100-108) mmol/L Carbon Dioxide 30 (21-32) mmol/L Anion Gap 10.9 (5.0-14.0) mmol/L BUN 10 (7-18) mg/dL Creatinine 0.8 (0.6-1.0) mg/dL Est Cr Clr Drug Dosing 49.55 mL/min Estimated GFR (MDRD) > 60 (>60) Glucose 95 (74-106) mg/dL Calcium 8.0 L (8.5-10.1) mg/dL Creatine Kinase 22 L (26-192) U/L Troponin I 0.063 H* (0.000-0.056) ng/mL Med Orders - Current: Current Medications Acetaminophen (Tylenol) 650 mg PO Q4H PRN PRN Reason: Pain Last Admin: 11/12/17 01:55 Dose: 650 mg Amiodarone HCl (Cordarone) 200 mg PO DAILY [facility] Last Admin: 11/12/17 09:50 Dose: 200 mg Arformoterol Tartrate (Brovana) 15 mcg NEB BIDRT [facility] Last Admin: 11/12/17 07:14 Dose: 15 mcg Carvedilol (Coreg) 3.125 mg PO BID [facility] Last Admin: 11/12/17 09:49 Dose: 3.125 mg Doxycycline Hyclate (Vibramycin) 100 mg PO BID [facility] Last Admin: 11/12/17 09:51 Dose: 100 mg Furosemide (Lasix) 20 mg PO BID [facility] Last Admin: 11/12/17 09:54 Dose: 20 mg Gabapentin (Neurontin) 300 mg PO TID [facility] Last Admin: 11/12/17 09:50 Dose: 300 mg Lactobacillus Rhamnosus (Culturelle) 2 cap PO BID [facility] Last Admin: 11/12/17 09:50 Dose: 2 cap Lisinopril (Prinivil) 2.5 mg PO DAILY [facility] Last Admin: 11/12/17 09:51 Dose: 2.5 mg Loperamide HCl (Imodium) 2 mg PO DAILY PRN PRN Reason: Diarrhea Metronidazole (Metronidazole) 500 mg PO TID [facility] Last Admin: 11/12/17 09:51 Dose: 500 mg Multivitamins/Minerals (Thera M Plus) 1 tab PO DAILY [facility] Last Admin: 11/12/17 09:51 Dose: 1 tab Naproxen (Naproxen Sodium) 220 mg PO TID PRN PRN Reason: Pain Potassium Chloride (Klor-Con M20) 20 meq PO BIDMEALS [facility] Last Admin: 11/12/17 09:52 Dose: 20 meq Sodium Chloride (Saline Flush) 10 ml FLUSH ASDIRECTED PRN PRN Reason: Keep Vein Open Last Admin: 11/10/17 10:09 Dose: 10 ml Spironolactone (Aldactone) 25 mg PO DAILY [facility] Last Admin: 11/12/17 09:49 Dose: 25 mg Tramadol HCl (Ultram) 50 mg PO Q4H PRN PRN Reason: Pain (severe 7-10) Discontinued Medications Furosemide (Lasix) 20 mg IVPUSH ONETIME ONE Stop: 11/10/17 10:03 Last Admin: 11/10/17 10:07 Dose: 20 mg Sodium Chloride (Normal Saline) 80 mls @ 3 mls/sec IV ONETIME ONE Stop: 11/10/17 10:23 Last Admin: 11/10/17 10:49 Dose: 3 mls/sec Iopamidol (Isovue-370 (76%)) 85 ml IV . DIRECTED ON [facility] Last Admin: 11/10/17 10:49 Dose: 85 ml Lactobacillus Rhamnosus (Culturelle) Confirm Administered Dose 2 cap .ROUTE .STK -MED ONE Stop: 11/10/17 21:36 Last Admin: 11/10/17 21:54 Dose: Not Given Non-Formulary Medication (Lactobacillus Acidophilus [Probiotic]) 2 cap PO BID [facility] Last Admin: 11/10/17 21:50 Dose: 2 cap Potassium Chloride (Klor-Con M20) 40 meq PO ONETIME ONE Stop: 11/12/17 08:01 Last Admin: 11/12/17 08:27 Dose: 40 meq Sodium Chloride (Saline Flush) 10 ml FLUSH ONETIME PRN PRN Reason: PER RADIOLOGY PROTOCOL Last Admin: 11/10/17 10:49 Dose: 10 ml - Exam General: Reports: Alert, Oriented HEENT: Reports: Pupils Equal, Pupils Reactive, EOMI, Mucous Membr. Moist/[place] Neck: Reports: Supple Lungs: Reports: Clear to Auscultation, Normal Respiratory Effort Cardiovascular: Reports: Regular Rate, Regular Rhythm GI/Abdominal Exam: Normal Bowel Sounds, Soft, Non-Tender, No Organomegaly, No Distention, No Abnormal Bruit, No Mass, Pelvis Stable Back Exam: Reports: Normal Inspection, Full Range of Motion Extremities: Other (numbness feet) Neurological: Reports: Other (unable to ambulate safely) Psy/Mental Status: Reports: Alert, Normal Affect, Normal Mood *Q Meaningful Use (DIS) - VTE *Q VTE Criteria *Q: - Stroke *Q Stroke Criteria *Q: - AMI *Q AMI Criteria *Q:
== END 2017-11-12 13:00 | DRG 292 ==
LOC: JP.ED 09:07 → JP.MS 12:23
PROVIDERS: ADMIT Internal Medicine; ATTEND Internal Medicine
DX: I50.41 Acute combined systolic (congestive) and diastolic (congestive) heart failure (principal); A04.72 Enterocolitis due to Clostridium difficile, not specified as recurrent; J44.9 Chronic obstructive pulmonary disease, unspecified; Z99.81 Dependence on supplemental oxygen; Z87.891 Personal history of nicotine dependence; R06.03 Acute respiratory distress; R06.02 Shortness of breath; M00.022 Staphylococcal arthritis, left elbow; R74.8 Abnormal levels of other serum enzymes; E87.6 Hypokalemia; I25.10 Atherosclerotic heart disease of native coronary artery without angina pectoris; I25.2 Old myocardial infarction; G47.30 Sleep apnea, unspecified; M54.9 Dorsalgia, unspecified; G89.29 Other chronic pain; Z86.14 Personal history of Methicillin resistant Staphylococcus aureus infection; Z95.5 Presence of coronary angioplasty implant and graft; H54.7 Unspecified visual loss
CPT/HCPCS: 36415; 36600; 71045; 71045-26; 71046; 71046-26; 71275; 71275-26; 80048; 80053; 82550; 82803; 84484; 85025; 85379; 93306; 94640; 96374; 99285; 99285-25; A9270-GY; J1940; J7030; J7050; J7605; Q9967

== ENCOUNTER 2017-11-13 03:12 | Emergency (ER) | payer MEDICARE, BC ==
[2017-11-13 03:25] VITALS: BP 140/97
[2017-11-13] MEDS ORDERED: LORazepam 1 MG Tab PO ONE (04:11)
--- NOTE | 2017-11-13 05:19 | EDM.PDOC ---
ED HPI GENERAL MEDICAL PROBLEM - General Chief Complaint: Respiratory Problem Stated Complaint: MEDICAL VIA [facility] Time Seen by Provider: 11/13/17 04:06 Source of Information: Reports: Patient, Old Records, RN Notes Reviewed History Limitations: Reports: Respiratory Distress - History of Present Illness INITIAL COMMENTS - FREE TEXT/NARRATIVE: 81-year-old female presents emergency department day complaint of difficulty breathing she is brought in by EMS services. She was recently discharged from the hospital 12 hours prior complaint of respiratory distress found to be in pulmonary edema was started on Lasix and NIA inhibitor. 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 - Related Data Allergies Allergy/AdvReac Type Severity Reaction Status Date / Time oxycodone Allergy Cannot Verified 11/13/17 03:42 Remember Home Meds: Home Meds Amiodarone HCl 200 mg PO DAILY 04/02/17 [History] Acetaminophen [Tylenol] 650 mg PO Q4H PRN 09/06/17 [History] *Prostat 1 oz PO BID 11/05/17 [History] Gabapentin [Neurontin] 300 mg PO TID 11/05/17 [History] Lactobacillus Acidophilus [Probiotic] 2 cap PO BID 11/05/17 [History] Loperamide [Imodium AD] 2 mg PO DAILY PRN 11/05/17 [History] Metronidazole [IJD: metroNIDAZOLE] 500 mg PO TID 11/05/17 [History] Naproxen Sodium 220 mg PO TID PRN 11/05/17 [History] Doxycycline Monohydrate 100 mg PO BID 6 Days #12 capsule 11/09/17 [Rx] Arformoterol [Brovana] 15 mcg IH BID 11/10/17 [History] Carvedilol [Coreg] 3.125 mg PO BID tablet 11/12/17 [Rx] Furosemide [Lasix] 20 mg PO BID tablet 11/12/17 [Rx] Potassium Chloride [Klor-Con M20] 20 meq PO BIDMEALS tab.er 11/12/17 [Rx] Spironolactone [Aldactone] 25 mg PO DAILY tablet 11/12/17 [Rx] traMADol HCl [Tramadol HCl] 50 mg PO Q12HR PRN #0 11/12/17 [Rx] Past Medical History HEENT History: Reports: Cataract, Impaired Vision Cardiovascular History: Reports: Arrhythmia, CAD, High Cholesterol, [place], Pacemaker, Stents Respiratory History: Reports: COPD, Sleep Apnea, Other (See Below) Other Respiratory History: uses home O2 at night Gastrointestinal History: Reports: Cholelithiasis Genitourinary History: Reports: Urinary Incontinence 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 s/p lumbar fusion. Psychiatric History: Reports: Anxiety Endocrine/Metabolic History: Reports: Other (See Below) Other Endocrine/Metabolic History: hypoglycemia Dermatologic History: Reports: Cellulitis - Infectious Disease History Infectious Disease History: Reports: MRSA - Past Surgical History HEENT Surgical History: Reports: Cataract Surgery GI Surgical History: Reports: Appendectomy, Cholecystectomy, Colonoscopy Female Surgical History: Reports: Hysterectomy, Salpingo-Oophorectomy Neurological Surgical History: Reports: Lumbar Spine Social & Family History - Family History Family Medical History: Noncontributory - Tobacco Use Smoking Status *Q: Unknown Ever Smoked Years of Tobacco use: 60 Packs/Tins Daily: 1 Used Tobacco, but Quit: Yes Month Tobacco Last Used: 10 YEARS AGO Second Hand Smoke Exposure: No - Caffeine Use Caffeine Use: Reports: Coffee - Recreational Drug Use Recreational Drug Use: No ED ROS GENERAL - Review of Systems Review Of Systems: Unable To Obtain ED EXAM, GENERAL - Physical Exam Exam: See Below Exam Limited By: Physical Impairment General Appearance: Alert, Mild Distress Eye Exam: Bilateral Eye: Normal Inspection Head: Atraumatic, Normocephalic Neck: Normal Inspection, Supple, Non-Tender, Full Range of Motion Respiratory/Chest: No Respiratory Distress, Lungs Clear, Normal Breath Sounds, No Accessory Muscle Use Cardiovascular: Regular Rate, Rhythm, No Murmur GI/Abdominal: Soft, Non-Tender Extremities: Non-Tender Course - Vital Signs Last Recorded V/S: Last Vital Signs Temp 96.6 F 11/13/17 03:15 Pulse 82 11/13/17 03:15 Resp 26 H 11/13/17 03:15 BP 140/97 H 11/13/17 03:15 Pulse Ox 91 L 11/13/17 03:15 - Orders/Labs/Meds Orders: Active Orders 24 hr Category Date Time Status Cardiac Monitoring [RC] .As Directed Care 11/13/17 05:14 Active Chest 1V Frontal [CR] Stat Exams 11/13/17 05:15 Taken Labs: Laboratory Tests 11/13/17 11/13/17 11/13/17 Range/Units 05:30 05:30 05:30 WBC 8.6 (4.5-11.0) K/uL RBC 4.13 (3.30-5.50) M/uL Hgb 11.3 L (12.0-15.0) g/dL Hct 36.1 (36.0-48.0) % MCV 87 (80-98) fL MCH 27 (27-31) pg MCHC 31 L (32-36) % Plt Count 401 H (150-400) K/uL Neut % (Auto) 63 (36-66) % Lymph % (Auto) 23 L (24-44) % [place] % (Auto) 14 H (2-6) % Eos % (Auto) 0 L (2-4) % Baso % (Auto) 1 (0-1) % Sodium 141 (140-148) mmol/L Potassium 3.7 (3.6-5.2) mmol/L Chloride 102 (100-108) mmol/L Carbon Dioxide 28 (21-32) mmol/L Anion Gap 10.7 (5.0-14.0) mmol/L BUN 12 (7-18) mg/dL Creatinine 0.9 (0.6-1.0) mg/dL Est Cr Clr Drug Dosing 44.11 mL/min Estimated GFR (MDRD) > 60 (>60) Glucose 106 (74-106) mg/dL Lactic Acid 1.9 (0.4-2.0) mmol/L Calcium 8.2 L (8.5-10.1) mg/dL Total Bilirubin 0.6 (0.2-1.0) mg/dL AST 49 H (15-37) U/L ALT 49 (12-78) U/L Alkaline Phosphatase 94 (46-116) U/L CK-MB (CK-2) 0.4 (0-3.6) mg/mL Troponin I 0.050 (0.000-0.056) ng/mL NT-Pro-B Natriuret Pep 8397 H (5-450) pg/mL Total Protein 6.8 (6.4-8.2) g/dL Albumin 2.6 L (3.4-5.0) g/dL Globulin 4.2 H (2.3-3.5) g/dL Albumin/Globulin Ratio 0.6 L (1.2-2.2) Meds: Medications Discontinued Medications Generic Name Dose Route Start Last Admin Trade Name Janay PRN Reason Stop Dose Admin Lorazepam 1 mg 11/13/17 04:11 11/13/17 04:19 Ativan PO 11/13/17 04:12 1 mg ONETIME ONE Administration Departure - Departure Time of Disposition: 06:35 Disposition: DC/[facility] to [facility] Condition: Poor Clinical Impression: Pulmonary hypertension - Discharge Information Referrals: PCP,None [Primary Care Provider] - Forms: ED Department Discharge Additional Instructions: Follow-up with your primary care provider recommend medication like nifedipine to help with the breathing difficulties - My Orders Last 24 Hours: My Active Orders 11/13/17 05:14 Cardiac Monitoring [RC] .As Directed 11/13/17 05:15 Chest 1V Frontal [CR] Stat - Assessment/Plan Last 24 Hours: My Active Orders 11/13/17 05:14 Cardiac Monitoring [RC] .As Directed 11/13/17 05:15 Chest 1V Frontal [CR] Stat Plan: Assessment Acuity = acute Site and laterality = dyspnea complicated patient with known history of severe pulmonary edema Etiology = probably related to pulmonary edema Manifestations = none Location of injury = Home Lab values = hemoglobin low 11.3 consistent with normochromic anemia BNP elevated 8397 consistent fluid overload type pattern albumin low at 2.6 consistent hypoalbuminemia chest x-ray I did review films myself I cannot appreciate any acute process, the official read from radiology is pending Plan Called discussed case with her primary care provider recommend transfer back to the [facility] she had some improvement with Ativan for the shortness of breath feeling would recommend medication like nifedipine to help with the fluid overload in the severe pulmonary hypertension This note was dictated using [employer] voice recognition software please call with any questions on syntax or luke.
--- NOTE | 2017-11-15 08:55 | CR ---
Chest 1V Frontal HISTORY: sob COMPARISON: 11/12/2017 FINDINGS: Portable chest, 0525 hours No focal infiltrate is identified. Cardiomediastinal silhouette is within normal limits. Atherosclero tic aorta is redemonstrated. Left-sided pacemaker lead wires are stable. No vascular redistribution o r pleural fluid can be seen. Bony structures and soft tissues are unremarkable. IMPRESSION: No acute chest abnormality or significant interval change is identified.
== END 2017-11-13 07:38 ==
LOC: JP.ED 03:12
DX: I27.20 Pulmonary hypertension, unspecified (principal); E78.00 Pure hypercholesterolemia, unspecified; I25.10 Atherosclerotic heart disease of native coronary artery without angina pectoris; J44.9 Chronic obstructive pulmonary disease, unspecified; Z88.5 Allergy status to narcotic agent; Z87.891 Personal history of nicotine dependence
CPT/HCPCS: 36415; 71045; 80053; 82553; 83605; 83880; 84484; 85025; 99285; A9270; 99284

== ENCOUNTER 2017-11-13 20:06 | Inpatient (IN) | payer MEDICARE, BC ==
[2017-11-13] MEDS ORDERED: Sodium Chloride 0.9% 10 ML Syringe FLUSH PRN (20:30)
[2017-11-13] MEDS ORDERED: Nitroglycerin 0.4 MG Tab.SL SL ONE (20:31)
[2017-11-13] MEDS ORDERED: Furosemide 40 MG/4 ML VIAL IVPUSH ONE (20:31)
--- NOTE | 2017-11-13 20:39 | EDM.PDOC ---
ED HPI GENERAL MEDICAL PROBLEM - General Chief Complaint: Respiratory Problem Stated Complaint: MEDICAL VIA [facility] Time Seen by Provider: 11/13/17 20:24 Source of Information: Reports: Patient, RN Notes Reviewed History Limitations: Reports: Respiratory Distress - History of Present Illness INITIAL COMMENTS - FREE TEXT/NARRATIVE: 81-year-old female presents emergency department today via EMS services for increasing shortness of breath she has a known history of pulmonary hypertension as well as congestive heart failure was evaluated in the ED early this morning same complaint recently discharged from the hospital same complaint within the last 24 hours discussed the care with primary care provider on treatment plans however this was not followed up on and she is continued to decline over that - Related Data Allergies Allergy/AdvReac Type Severity Reaction Status Date / Time oxycodone Allergy Cannot Verified 11/13/17 03:42 Remember Home Meds: Home Meds Amiodarone HCl 200 mg PO DAILY 04/02/17 [History] Acetaminophen [Tylenol] 650 mg PO Q4H PRN 09/06/17 [History] *Prostat 1 oz PO BID 11/05/17 [History] Gabapentin [Neurontin] 300 mg PO TID 11/05/17 [History] Lactobacillus Acidophilus [Probiotic] 2 cap PO BID 11/05/17 [History] Loperamide [Imodium AD] 2 mg PO DAILY PRN 11/05/17 [History] Metronidazole [IJD: metroNIDAZOLE] 500 mg PO TID 11/05/17 [History] Naproxen Sodium 220 mg PO TID PRN 11/05/17 [History] Doxycycline Monohydrate 100 mg PO BID 6 Days #12 capsule 11/09/17 [Rx] Arformoterol [Brovana] 15 mcg IH BID 11/10/17 [History] Carvedilol [Coreg] 3.125 mg PO BID tablet 11/12/17 [Rx] Furosemide [Lasix] 20 mg PO BID tablet 11/12/17 [Rx] Potassium Chloride [Klor-Con M20] 20 meq PO BIDMEALS tab.er 11/12/17 [Rx] Spironolactone [Aldactone] 25 mg PO DAILY tablet 11/12/17 [Rx] traMADol HCl [Tramadol HCl] 50 mg PO Q12HR PRN #0 11/12/17 [Rx] Past Medical History HEENT History: Reports: Cataract, Impaired Vision Cardiovascular History: Reports: Arrhythmia, CAD, High Cholesterol, [place], Pacemaker, Stents Respiratory History: Reports: COPD, Sleep Apnea, Other (See Below) Other Respiratory History: uses home O2 at night Gastrointestinal History: Reports: Cholelithiasis Genitourinary History: Reports: Urinary Incontinence BUSINESS OBJECTS History: Reports: Musculoskeletal History: Reports: Back Pain, Chronic, Other (See Below) Other Musculoskeletal History: R hip and R leg pain. s/p lumbar fusion. Neurological History: Reports: None Psychiatric History: Reports: Anxiety Endocrine/Metabolic History: Reports: Other (See Below) Other Endocrine/Metabolic History: hypoglycemia Dermatologic History: Reports: Cellulitis - Infectious Disease History Infectious Disease History: Reports: MRSA - Past Surgical History HEENT Surgical History: Reports: Cataract Surgery GI Surgical History: Reports: Appendectomy, Cholecystectomy, Colonoscopy Female Surgical History: Reports: Hysterectomy, Salpingo-Oophorectomy Neurological Surgical History: Reports: Lumbar Spine Social & Family History - Family History Family Medical History: Noncontributory - Tobacco Use Smoking Status *Q: Unknown Ever Smoked Years of Tobacco use: 60 Packs/Tins Daily: 1 Used Tobacco, but Quit: Yes Month Tobacco Last Used: 10 YEARS AGO Second Hand Smoke Exposure: No - Caffeine Use Caffeine Use: Reports: Coffee - Recreational Drug Use Recreational Drug Use: No ED ROS GENERAL - Review of Systems Review Of Systems: See Below Constitutional: Reports: No Symptoms Respiratory: Reports: Shortness of Breath, Cough Cardiovascular: Reports: Chest Pain GI/Abdominal: Reports: No Symptoms : Reports: No Symptoms ED EXAM, GENERAL - Physical Exam Exam: See Below Exam Limited By: Respiratory Distress General Appearance: Alert, Moderate Distress Neck: Normal Inspection, Supple, Non-Tender, Full Range of Motion Respiratory/Chest: Respiratory Distress, Rhonchi, Wheezing, Accessory Muscle Use Cardiovascular: Regular Rate, Rhythm, No Murmur GI/Abdominal: Soft, Non-Tender Course - Vital Signs Last Recorded V/S: Last Vital Signs Temp 96.7 F 11/13/17 20:48 Pulse 72 11/13/17 21:39 Resp 26 H 11/13/17 21:39 BP 130/82 11/13/17 21:39 Pulse Ox 93 L 11/13/17 21:39 - Orders/Labs/Meds Orders: Active Orders 24 hr Category Date Time Status Cardiac Monitoring [RC] .As Directed Care 11/13/17 20:30 Active Peripheral IV Care [RC] . DIRECTED Care 11/13/17 20:30 Active Sodium Chloride 0.9% [Saline Flush] Med 11/13/17 20:30 Active 10 ml FLUSH ASDIRECTED PRN Peripheral IV Insertion Adult [OM.PC] Stat Oth 11/13/17 20:30 Ordered Saline Lock Insert [OM.PC] Stat Oth 11/13/17 20:30 Ordered Medication Orders Sodium Chloride (Saline Flush) 10 ml FLUSH ASDIRECTED PRN PRN Reason: Keep Vein Open Last Admin: 11/13/17 21:40 Dose: 10 ml Labs: Laboratory Tests 11/13/17 11/13/17 11/13/17 Range/Units 20:47 20:47 21:01 WBC 10.5 (4.5-11.0) K/uL RBC 4.46 (3.30-5.50) M/uL Hgb 12.4 (12.0-15.0) g/dL Hct 38.9 (36.0-48.0) % MCV 87 (80-98) fL MCH 28 (27-31) pg MCHC 32 (32-36) % Plt Count 426 H (150-400) K/uL Neut % (Auto) 69 H (36-66) % Lymph % (Auto) 15 L (24-44) % [place] % (Auto) 15 H (2-6) % Eos % (Auto) 0 L (2-4) % Baso % (Auto) 1 (0-1) % Sodium 139 L (140-148) mmol/L Potassium 4.3 (3.6-5.2) mmol/L Chloride 101 (100-108) mmol/L Carbon Dioxide 27 (21-32) mmol/L Anion Gap 15.3 H (5.0-14.0) mmol/L BUN 17 (7-18) mg/dL Creatinine 1.0 (0.6-1.0) mg/dL Est Cr Clr Drug Dosing TNP Estimated GFR (MDRD) 53 L (>60) Glucose 158 H (74-106) mg/dL Calcium 8.4 L (8.5-10.1) mg/dL Troponin I 0.039 (0.000-0.056) ng/mL Meds: Medications Generic Name Dose Route Start Last Admin Trade Name Janay PRN Reason Stop Dose Admin Sodium Chloride 10 ml 11/13/17 20:30 11/13/17 21:40 Saline Flush FLUSH 10 ml ASDIRECTED PRN Administration Keep Vein Open Discontinued Medications Generic Name Dose Route Start Last Admin Trade Name Janay PRN Reason Stop Dose Admin Furosemide 40 mg 11/13/17 20:31 11/13/17 20:53 Lasix IVPUSH 11/13/17 20:32 40 mg ONETIME ONE Administration Nitroglycerin 0.4 mg 11/13/17 20:31 11/13/17 20:53 Nitrostat SL 11/13/17 20:32 0.4 mg ONETIME ONE Administration Ondansetron HCl 4 mg 11/13/17 21:00 11/13/17 21:40 Zofran IVPUSH 11/13/17 21:01 4 mg ONETIME ONE Administration Departure - Departure Time of Disposition: 21:50 Disposition: Admitted As Inpatient 66 Condition: Poor Clinical Impression: Pulmonary hypertension Congestive heart failure Qualifiers: Congestive heart failure type: combined Congestive heart failure chronicity: acute Qualified Code(s): I50.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 DIRECTED Sodium Chloride 0.9% [Saline Flush] 10 ml FLUSH ASDIRECTED PRN Peripheral IV Insertion Adult [OM.PC] Stat Saline Lock Insert [OM.PC] Stat - Assessment/Plan Last 24 Hours: My Active Orders 11/13/17 20:30 Cardiac Monitoring [RC] .As Directed Peripheral IV Care [RC] . DIRECTED Sodium Chloride 0.9% [Saline Flush] 10 ml FLUSH ASDIRECTED PRN Peripheral IV Insertion Adult [OM.PC] Stat Saline Lock Insert [OM.PC] Stat Plan: Assessment Acuity = acute Site and laterality = pulmonary hypertension with congestive heart failure Etiology = valve regurgitation Manifestations = dyspnea Location of injury = Home Lab values = CBC, CMP unremarkable, troponin was negative, BNP from this morning was over 8000 EKG demonstrates a paced rhythm Plan Called discussed case Dr. Brownlee he agreed to come and evaluate the patient emergency department for admission This note was dictated using [employer] voice recognition software please call with any questions on syntax or luke.
[2017-11-13] MEDS ORDERED: Ondansetron 4 MG/2 ML SDV IVPUSH ONE (21:00)
[2017-11-13] MEDS ORDERED: Loperamide 2 MG Cap PO PRN (23:14)
[2017-11-13] MEDS ORDERED: Acetaminophen 325 MG Tab PO PRN (23:14)
--- NOTE | 2017-11-13 23:27 | PCM.HP ---
H&P History of Present Illness - General Date of Service: 11/13/17 Admit Problem/Dx: Admission Diagnosis/Problem Admission Diagnosis/Problem CHF, Congestive heart failure Source of Information: Patient, EMS Notes Reviewed, [facility] Records History Limitations: Reports: No Limitations - History of Present Illness Initial Comments - Free Text/Narative: She is readmitted after having severe shortness of breath at the [place] [facility]. She was in respiratory distress and felt she was going to . Worsens with: Reports: Movement - Related Data Allergies/Adverse Reactions: Allergies Allergy/AdvReac Type Severity Reaction Status Date / Time oxycodone Allergy Cannot Verified 11/13/17 03:42 Remember Home Medications: Home Meds Amiodarone HCl 200 mg PO DAILY 04/02/17 [History] Acetaminophen [Tylenol] 650 mg PO Q4H PRN 09/06/17 [History] *Prostat 1 oz PO BID 11/05/17 [History] Gabapentin [Neurontin] 300 mg PO TID 11/05/17 [History] Lactobacillus Acidophilus [Probiotic] 2 cap PO BID 11/05/17 [History] Loperamide [Imodium AD] 2 mg PO DAILY PRN 11/05/17 [History] Metronidazole [IJD: metroNIDAZOLE] 500 mg PO TID 11/05/17 [History] Naproxen Sodium 220 mg PO TID PRN 11/05/17 [History] Doxycycline Monohydrate 100 mg PO BID 6 Days #12 capsule 11/09/17 [Rx] Arformoterol [Brovana] 15 mcg IH BID 11/10/17 [History] Carvedilol [Coreg] 3.125 mg PO BID tablet 11/12/17 [Rx] Furosemide [Lasix] 20 mg PO BID tablet 11/12/17 [Rx] Potassium Chloride [Klor-Con M20] 20 meq PO BIDMEALS tab.er 11/12/17 [Rx] Spironolactone [Aldactone] 25 mg PO DAILY tablet 11/12/17 [Rx] traMADol HCl [Tramadol HCl] 50 mg PO Q12HR PRN #0 11/12/17 [Rx] Past Medical History HEENT History: Reports: Cataract, Impaired Vision Cardiovascular History: Reports: Arrhythmia, CAD, High Cholesterol, SC, Pacemaker, Stents, Other (See Below) Other Cardiovascular History: pulmonary hypertension Respiratory History: Reports: COPD, Sleep Apnea, Other (See Below) Other Respiratory History: uses home O2 at night Gastrointestinal History: Reports: Cholelithiasis Genitourinary History: Reports: Urinary Incontinence [employer] History: Reports: Musculoskeletal History: Reports: Back Pain, Chronic, Other (See Below) Other Musculoskeletal History: R hip and R leg pain. s/p lumbar fusion. Neurological History: Reports: None Psychiatric History: Reports: Anxiety Endocrine/Metabolic History: Reports: Other (See Below) Other Endocrine/Metabolic History: hypoglycemia Dermatologic History: Reports: Cellulitis - Infectious Disease History Infectious Disease History: Reports: MRSA - Past Surgical History HEENT Surgical History: Reports: Cataract Surgery GI Surgical History: Reports: Appendectomy, Cholecystectomy, Colonoscopy Female Surgical History: Reports: Hysterectomy, Salpingo-Oophorectomy Neurological Surgical History: Reports: Lumbar Spine Social & Family History - Family History Family Medical History: Noncontributory - Tobacco Use Smoking Status *Q: Never Smoker Years of Tobacco use: 60 Packs/Tins Daily: 1 Used Tobacco, but Quit: Yes Month Tobacco Last Used: 10 YEARS AGO Second Hand Smoke Exposure: No - Caffeine Use Caffeine Use: Reports: Coffee - Recreational Drug Use Recreational Drug Use: No H&P Review of Systems - Review of Systems: Review Of Systems: See Below General: Reports: Weakness HEENT: Reports: No Symptoms Pulmonary: Reports: Shortness of Breath, Wheezing, Cough Cardiovascular: Reports: Dyspnea on Exertion Gastrointestinal: Reports: Nausea Genitourinary: Reports: No Symptoms Psychiatric: Reports: Anxiety Hematologic/Lymphatic: Reports: No Symptoms Exam - Exam Exam: See Below - Vital Signs Vital Signs: Last Vital Signs Temp 96.7 F 11/13/17 20:48 Pulse 69 11/13/17 22:18 Resp 26 H 11/13/17 22:18 BP 126/71 11/13/17 22:18 Pulse Ox 92 L 11/13/17 22:18 Weight: 143 lb 4.807 oz - Exam General: Cooperative, Severe Distress HEENT: PERRLA, Hearing Intact, Mucosa Moist & [place], Nares Patent, Normal Nasal Septum, Posterior Pharynx Clear, Conjunctiva Clear, EOMI, EACs Clear, TMs Clear Neck: Supple, Trachea Midline, 2 Lungs: Crackles, Rales, Rhonchi Cardiovascular: Other (distant heart sounds) Extremities: Other (Healed lesion in the back.) Peripheral Pulses: 1+: Radial (L), Radial (R) Skin: Warm, Dry Neurological: Cranial Nerves Intact Neuro Extensive - Mental Status: Oriented x3 Neuro Extensive - Motor, Sensory, Reflexes: CN II-XII Intact, Ataxia DTR: 0: Patella (L), Patella (R) Psychiatric: Alert, Anxious - Patient Data Lab Results Last 24 hrs: Laboratory Results - last 24 hr 11/13/17 11/13/17 11/13/17 Range/Units 20:47 20:47 21:01 WBC 10.5 (4.5-11.0) K/uL RBC 4.46 (3.30-5.50) M/uL Hgb 12.4 (12.0-15.0) g/dL Hct 38.9 (36.0-48.0) % MCV 87 (80-98) fL MCH 28 (27-31) pg MCHC 32 (32-36) % Plt Count 426 H (150-400) K/uL Neut % (Auto) 69 H (36-66) % Lymph % (Auto) 15 L (24-44) % Taylor % (Auto) 15 H (2-6) % Eos % (Auto) 0 L (2-4) % Baso % (Auto) 1 (0-1) % Sodium 139 L (140-148) mmol/L Potassium 4.3 (3.6-5.2) mmol/L Chloride 101 (100-108) mmol/L Carbon Dioxide 27 (21-32) mmol/L Anion Gap 15.3 H (5.0-14.0) mmol/L BUN 17 (7-18) mg/dL Creatinine 1.0 (0.6-1.0) mg/dL Est Cr Clr Drug Dosing TNP Estimated GFR (MDRD) 53 L (>60) Glucose 158 H (74-106) mg/dL Calcium 8.4 L (8.5-10.1) mg/dL Troponin I 0.039 (0.000-0.056) ng/mL Result Diagrams: 11/13/17 20:47 11/14/17 06:11 *Q Meaningful Use (ADM) - VTE *Q VTE Criteria *Q: - Stroke *Q Stroke Criteria *Q: - AMI *Q AMI Criteria *Q: Problem List Initiated/Reviewed/Updated: Yes Orders Last 24hrs: Active Orders 24 hr Category Date Time Status Patient Status [ADT] Routine ADT 11/13/17 23:03 Ordered Cardiac Monitoring [RC] .As Directed Care 11/13/17 20:30 Active EKG Documentation Completion [RC] ASDIRECTED Care 11/13/17 22:04 Active Height and Weight [RC] DAILY Care 11/13/17 23:03 Ordered Intake and Output [RC] QSHIFT Care 11/13/17 23:06 Ordered Oxygen Therapy [RC] PRN Care 11/13/17 23:03 Ordered Peripheral IV Care [RC] . DIRECTED Care 11/13/17 20:30 Active Up to Chair [RC] QID Care 11/13/17 23:03 Ordered VTE/DVT Education [RC] Per Unit Routine Care 11/13/17 23:03 Ordered Vital Signs [RC] Q4H Care 11/13/17 23:03 Ordered 2 Gram Sodium Diet [DIET] Diet 11/14/17 Breakfast Ordered BASIC METABOLIC PANEL,BMP [CHEM] Routine Lab 11/14/17 05:11 Ordered Acetaminophen [Tylenol] Med 11/13/17 23:14 Ordered 650 mg PO Q4H PRN Arformoterol [Brovana] Med 11/14/17 09:00 Ordered 15 mcg NEB BID Carvedilol [Coreg] Med 11/14/17 09:00 Ordered 3.125 mg PO BID Doxycycline Monohydrate [Doxycycline Monohydrate] Med 11/14/17 09:00 Ordered 100 mg PO BID Furosemide [Lasix] Med 11/14/17 09:00 Ordered 40 mg PO BID Gabapentin [Neurontin] Med 11/14/17 09:00 Ordered 300 mg PO TID Lactobacillus Acidophilus [Probiotic] Med 11/14/17 09:00 Ordered 2 cap PO BID Loperamide [Imodium AD] Med 11/13/17 23:14 Ordered 2 mg PO DAILY PRN Metronidazole [IJD: metroNIDAZOLE] Med 11/14/17 09:00 Ordered 500 mg PO TID Potassium Chloride [Klor-Con M20] Med 11/14/17 08:00 Ordered 20 meq PO BIDMEALS Sodium Chloride 0.9% [Saline Flush] Med 11/13/17 20:30 Active 10 ml FLUSH ASDIRECTED PRN Spironolactone [Aldactone] Med 11/14/17 09:00 Ordered 25 mg PO DAILY Peripheral IV Insertion Adult [OM.PC] Stat Oth 11/13/17 20:30 Ordered Saline Lock Insert [OM.PC] Stat Oth 11/13/17 20:30 Ordered Resuscitation Status Routine Resus Stat 11/13/17 23:03 Ordered EKG 12 Lead [EK] Stat Ther 11/13/17 22:04 Ordered Medication Orders Acetaminophen (Tylenol) 650 mg PO Q4H PRN PRN Reason: Pain Arformoterol Tartrate (Brovana) 15 mcg NEB BID [facility] Carvedilol (Coreg) 3.125 mg PO BID [facility] Furosemide (Lasix) 40 mg PO BID [facility] Gabapentin (Neurontin) 300 mg PO TID [facility] Non-Formulary Medication (Doxycycline Monohydrate [Doxycycline Monohydrate]) 100 mg PO BID [facility] Non-Formulary Medication (Lactobacillus Acidophilus [Probiotic]) 2 cap PO BID [facility] Non-Formulary Medication (Loperamide [Imodium Ad]) 2 mg PO DAILY PRN PRN Reason: Diarrhea Non-Formulary Medication (Metronidazole [Ijd: Metronidazole]) 500 mg PO TID [facility] Potassium Chloride (Klor-Con M20) 20 meq PO BIDMEALS [facility] Sodium Chloride (Saline Flush) 10 ml FLUSH ASDIRECTED PRN PRN Reason: Keep Vein Open Last Admin: 11/13/17 21:40 Dose: 10 ml Spironolactone (Aldactone) 25 mg PO DAILY [facility] Assessment/Plan Comment:: Assessment/plan: #1. Right heart failure, Moderate aortic insufficiency, severe mitral regurgitation, severe pulmonary hypertension Right ventricular systolic pressure 60-70EF 40-45%, Global hypokinesis of left ventricle/ Echocardiogram. She has refused aggressive treatment. I have spoken with the daughter who will be here tomorrow. Would like to start Ambrisentan (Letaris and Tadalafil but both are not available and also would probably be of no benefit as her problem is the mitral valve insufficiency causing the pulmonary hypertension.. #2. HTN; Stable. #3. S/P: MRSA infection back and arm. #4. COPD/emphysema; She has stopped smoking 3 PPD just over 6 months ago.
[2017-11-14] MEDS: Arformoterol 15 MCG/2 ML Neb Soln NEB SCH ×2 (08:00→21:23)
[2017-11-14] MEDS: Furosemide 40 MG Tab PO SCH ×2 (08:32→14:07)
[2017-11-14] MEDS: Carvedilol 3.125 MG Tab PO SCH ×2 (08:32→21:23)
[2017-11-14] MEDS: Spironolactone 25 MG Tab PO SCH (08:32)
[2017-11-14] MEDS: metroNIDAZOLE 250 MG Tab PO SCH ×2 (08:32→12:56)
[2017-11-14] MEDS: Doxycycline 100 MG Cap PO SCH ×2 (08:33→21:23)
[2017-11-14] MEDS: Potassium Chloride 20 MEQ Tab.ER PO SCH ×2 (08:33→17:27)
[2017-11-14] MEDS ORDERED: Lactobacillus Rhamnosus GG (Probiotic) Cap PO SCH (09:00)
[2017-11-14] MEDS ORDERED: Gabapentin 300 MG Cap PO SCH (09:00)
--- NOTE | 2017-11-14 13:10 | PCM.PN ---
- General Info Date of Service: 11/14/17 Functional Status: Reports: Pain Controlled - Review of Systems General: Reports: Weakness, Fatigue HEENT: Reports: No Symptoms Pulmonary: Reports: Shortness of Breath, Cough, Sputum, Wheezing Cardiovascular: Reports: Dyspnea on Exertion Gastrointestinal: Reports: No Symptoms Genitourinary: Reports: No Symptoms Musculoskeletal: Reports: No Symptoms Skin: Reports: No Symptoms Neurological: Reports: No Symptoms Psychiatric: Reports: No Symptoms - Patient Data Vitals - Most Recent: Last Vital Signs Temp 96.7 F 11/14/17 10:09 Pulse 72 11/14/17 10:09 Resp 18 11/14/17 10:09 BP 130/55 L 11/14/17 10:09 Pulse Ox 100 11/14/17 10:09 Weight - Most Recent: 146 lb 6.191 oz I&O - Last 24 Hours: Intake & Output 11/13/17 11/14/17 11/14/17 22:59 06:59 14:59 Intake Total 600 Output Total 300 300 Balance -300 300 Lab Results Last 24 Hours: Laboratory Results - last 24 hr 11/14/17 Range/Units 06:11 Sodium 141 (140-148) mmol/L Potassium 3.5 L (3.6-5.2) mmol/L Chloride 103 (100-108) mmol/L Carbon Dioxide 31 (21-32) mmol/L Anion Gap 10.5 (5.0-14.0) mmol/L BUN 19 H (7-18) mg/dL Creatinine 0.9 (0.6-1.0) mg/dL Est Cr Clr Drug Dosing 44.04 mL/min Estimated GFR (MDRD) > 60 (>60) Glucose 109 H (74-106) mg/dL Calcium 7.8 L (8.5-10.1) mg/dL Med Orders - Current: Current Medications Arformoterol Tartrate (Brovana) 15 mcg NEB BIDRT [facility] Last Admin: 11/14/17 08:00 Dose: 15 mcg Carvedilol (Coreg) 3.125 mg PO BID [facility] Last Admin: 11/14/17 08:32 Dose: 3.125 mg Doxycycline Hyclate (Vibramycin) 100 mg PO BID [facility] Last Admin: 11/14/17 08:33 Dose: 100 mg Furosemide (Lasix) 40 mg PO BIDDIURETIC [facility] Last Admin: 11/14/17 08:32 Dose: 40 mg Potassium Chloride (Klor-Con M20) 20 meq PO BIDMEALS [facility] Last Admin: 11/14/17 08:33 Dose: 20 meq Sodium Chloride (Saline Flush) 10 ml FLUSH ASDIRECTED PRN PRN Reason: Keep Vein Open Last Admin: 11/13/17 21:40 Dose: 10 ml Spironolactone (Aldactone) 25 mg PO DAILY [facility] Last Admin: 11/14/17 08:32 Dose: 25 mg Discontinued Medications Acetaminophen (Tylenol) 650 mg PO Q4H PRN PRN Reason: Pain Furosemide (Lasix) 40 mg IVPUSH ONETIME ONE Stop: 11/13/17 20:32 Last Admin: 11/13/17 20:53 Dose: 40 mg Gabapentin (Neurontin) 300 mg PO TID [facility] Last Admin: 11/14/17 08:32 Dose: 300 mg Lactobacillus Rhamnosus (Culturelle) 2 cap PO BID [facility] Last Admin: 11/14/17 08:32 Dose: 2 cap Loperamide HCl (Imodium) 2 mg PO DAILY PRN PRN Reason: Diarrhea Metronidazole (Metronidazole) 500 mg PO TIDMEALS [facility] Last Admin: 11/14/17 12:56 Dose: Not Given Nitroglycerin (Nitrostat) 0.4 mg SL ONETIME ONE Stop: 11/13/17 20:32 Last Admin: 11/13/17 20:53 Dose: 0.4 mg Ondansetron HCl (Zofran) 4 mg IVPUSH ONETIME ONE Stop: 11/13/17 21:01 Last Admin: 11/13/17 21:40 Dose: 4 mg - Exam General: Oriented, Moderate Distress HEENT: Pupils Equal, Pupils Reactive, EOMI, Mucous Membr. Moist/[place] Neck: Supple Lungs: Crackles, Rhonchi, Wheezing Cardiovascular: Regular Rate GI/Abdominal Exam: Normal Bowel Sounds, Soft, Non-Tender, No Organomegaly, No Distention, No Abnormal Bruit, No Mass, Pelvis Stable Extremities: Other (numbness lower extr.) Peripheral Pulses: 1+: Radial (L), Radial (R) - Problem List Review Problem List Initiated/Reviewed/Updated: Yes - My Orders Last 24 Hours: My Active Orders 11/14/17 07:00 Arformoterol [Brovana] 15 mcg NEB BIDRT 11/14/17 08:00 Furosemide [Lasix] 40 mg PO BIDDIURETIC Potassium Chloride [Klor-Con M20] 20 meq PO BIDMEALS 11/14/17 09:00 Carvedilol [Coreg] 3.125 mg PO BID Doxycycline [Vibramycin] 100 mg PO BID Spironolactone [Aldactone] 25 mg PO DAILY 11/14/17 10:57 SCD [Sequential Compression Device] [OM.PC] Routine 11/14/17 13:04 Comfort Measures [OM.PC] Routine - Plan Plan:: Assessment/plan: #1. Right heart failure, Moderate aortic insufficiency, severe mitral regurgitation, severe pulmonary hypertension Right ventricular systolic pressure 60-70EF 40-45%, Global hypokinesis of left ventricle/ Echocardiogram. She has refused aggressive treatment. She now watns confort cares only. I tdold her the only possible fix would be to put a clip on the mitral valve and she wants nothing done to prolong her life only comfort cares.I have spoken with the daughter who will be here today. No medicine would relieve her symptoms other than repair or replace the mitral valve which she refuses.\\ #2. HTN: Good control 130/55 presently #3. S/P: MRSA infection back and arm. I went over her medicine and she is very insistent about stopping as many medicine as possible. Orders have been written and she will be on comfort cares as written. Her overall prognosis is grave and she is aware of her prognosis.
[2017-11-14] MEDS ORDERED: LORazepam ORAL Concentrate 1MG/0.5ML U/D PO PRN (13:49)
[2017-11-14] MEDS ORDERED: LORazepam 0.5 MG Tab PO PRN (14:00)
[2017-11-15] MEDS: Arformoterol 15 MCG/2 ML Neb Soln NEB SCH (07:28)
--- NOTE | 2017-11-15 08:39 | PCM.PN ---
- General Info Date of Service: 11/15/17 Subjective Update: She has no complaints wanting to , asking where is she going today. Functional Status: Reports: Pain Controlled - Review of Systems General: Reports: Weakness HEENT: Reports: No Symptoms Pulmonary: Reports: Shortness of Breath, Cough, Sputum Cardiovascular: Reports: No Symptoms Gastrointestinal: Reports: No Symptoms Genitourinary: Reports: No Symptoms Musculoskeletal: Reports: No Symptoms Skin: Reports: No Symptoms Neurological: Reports: No Symptoms Psychiatric: Reports: No Symptoms - Patient Data Vitals - Most Recent: Last Vital Signs Temp 98.1 F 11/14/17 23:00 Pulse 80 11/15/17 07:29 Resp 18 11/14/17 23:00 BP 118/62 11/14/17 23:00 Pulse Ox 100 11/15/17 07:29 Weight - Most Recent: 143 lb 4.807 oz I&O - Last 24 Hours: Intake & Output 11/14/17 11/15/17 11/15/17 22:59 06:59 14:59 Intake Total 480 Output Total 950 200 Balance -470 -200 Med Orders - Current: Current Medications Arformoterol Tartrate (Brovana) 15 mcg NEB BIDRT [facility] Last Admin: 11/15/17 07:28 Dose: 15 mcg Carvedilol (Coreg) 3.125 mg PO BID [facility] Last Admin: 11/14/17 21:23 Dose: 3.125 mg Doxycycline Hyclate (Vibramycin) 100 mg PO BID [facility] Last Admin: 11/14/17 21:23 Dose: 100 mg Furosemide (Lasix) 40 mg PO BIDDIURETIC [facility] Last Admin: 11/14/17 14:07 Dose: 40 mg Lorazepam (Ativan Oral Concentrate 1mg/0.5 Ml U/D) 0.5 mg PO Q2H PRN PRN Reason: Anxiety Lorazepam (Ativan) 0.5 mg PO Q2H PRN PRN Reason: ANXIETY Potassium Chloride (Klor-Con M20) 20 meq PO BIDMEALS [facility] Last Admin: 11/14/17 17:27 Dose: 20 meq Sodium Chloride (Saline Flush) 10 ml FLUSH ASDIRECTED PRN PRN Reason: Keep Vein Open Last Admin: 11/13/17 21:40 Dose: 10 ml Spironolactone (Aldactone) 25 mg PO DAILY [facility] Last Admin: 11/14/17 08:32 Dose: 25 mg Discontinued Medications Acetaminophen (Tylenol) 650 mg PO Q4H PRN PRN Reason: Pain Furosemide (Lasix) 40 mg IVPUSH ONETIME ONE Stop: 11/13/17 20:32 Last Admin: 11/13/17 20:53 Dose: 40 mg Gabapentin (Neurontin) 300 mg PO TID [facility] Last Admin: 11/14/17 08:32 Dose: 300 mg Lactobacillus Rhamnosus (Culturelle) 2 cap PO BID [facility] Last Admin: 11/14/17 08:32 Dose: 2 cap Loperamide HCl (Imodium) 2 mg PO DAILY PRN PRN Reason: Diarrhea Metronidazole (Metronidazole) 500 mg PO TIDMEALS [facility] Last Admin: 11/14/17 12:56 Dose: Not Given Nitroglycerin (Nitrostat) 0.4 mg SL ONETIME ONE Stop: 11/13/17 20:32 Last Admin: 11/13/17 20:53 Dose: 0.4 mg Ondansetron HCl (Zofran) 4 mg IVPUSH ONETIME ONE Stop: 11/13/17 21:01 Last Admin: 11/13/17 21:40 Dose: 4 mg - Exam General: Alert, Oriented Neck: Supple Lungs: Clear to Auscultation, Normal Respiratory Effort Cardiovascular: Regular Rate, Regular Rhythm GI/Abdominal Exam: Normal Bowel Sounds, Soft, Non-Tender, No Organomegaly, No Distention, No Abnormal Bruit, No Mass, Pelvis Stable Back Exam: Normal Inspection, Full Range of Motion Extremities: Other (numbness legs) Skin: Warm, Dry, Intact Psy/Mental Status: Alert, Normal Affect, Normal Mood - Problem List Review Problem List Initiated/Reviewed/Updated: Yes - My Orders Last 24 Hours: My Active Orders 11/14/17 08:00 Furosemide [Lasix] 40 mg PO BIDDIURETIC Potassium Chloride [Klor-Con M20] 20 meq PO BIDMEALS 11/14/17 09:00 Carvedilol [Coreg] 3.125 mg PO BID Doxycycline [Vibramycin] 100 mg PO BID Spironolactone [Aldactone] 25 mg PO DAILY 11/14/17 10:57 SCD [Sequential Compression Device] [OM.PC] Routine 11/14/17 13:04 Comfort Measures [OM.PC] Routine 11/14/17 13:45 Code Status [Resuscitation Status] Routine 11/14/17 13:49 LORazepam [Ativan ORAL Concentrate 1MG/0.5 ML U/D] 0.5 mg PO Q2H PRN 11/14/17 13:51 Peripheral IV Discontinue [OM.PC] Routine 11/14/17 14:00 LORazepam [Ativan] 0.5 mg PO Q2H PRN - Plan Plan:: Assessment/plan: #1. Right heart failure, Moderate aortic insufficiency, severe mitral regurgitation, severe pulmonary hypertension Right ventricular systolic pressure 60-70EF 40-45%, Global hypokinesis of left ventricle/ Echocardiogram. She has refused aggressive treatment such as clipping of the mitral valve. I have spoken with the daughter who is in agreement. #2. HTN; Stable. 104/57 today. Heart rate 83 #3. S/P: MRSA infection back and arm. #4. COPD/emphysema; She has stopped smoking 3 PPD just over 6 months ago. Plan to discharge to the [facility] today. Will start Hospice care today.
--- NOTE | 2017-11-15 08:47 | PCM.DCSUM1 ---
Discharge Summary - Hospital Course Brief History: Admitted in respiratory distress with fluid overload. She was stating she was dieing. - Discharge Data Discharge Date: 11/15/17 Discharge Disposition: DC/[facility] to [facility] Condition: Poor - Patient Summary/Data Hospital Course: She was admitted in respiratory distress and was treated with diuretics and improved. The echocardiogram showed mitral valve insufficiency. I spoke with a drum tender who felt the only way in improve her heart function would be a clip on the mitral valve. She has refused any procedures. I spoke to the family who is in agreement. We will continue with the diuretics and supportive care only at her request. She did not want to take all the medicine and have decreased the total count. Hospice has be consulted. - Patient Instructions Diet: Regular Diet as Tolerated Activity: As Tolerated - Discharge Plan Home Medications: Home Meds Acetaminophen [Tylenol] 650 mg PO Q4H PRN 09/06/17 [History] *Prostat 1 oz PO BID 11/05/17 [History] Loperamide [Imodium AD] 2 mg PO DAILY PRN 11/05/17 [History] Doxycycline Monohydrate 100 mg PO BID 6 Days #12 capsule 11/09/17 [Rx] Arformoterol [Brovana] 15 mcg IH BID 11/10/17 [History] Carvedilol [Coreg] 3.125 mg PO BID tablet 11/12/17 [Rx] Potassium Chloride [Klor-Con M20] 20 meq PO BIDMEALS tab.er 11/12/17 [Rx] Spironolactone [Aldactone] 25 mg PO DAILY tablet 11/12/17 [Rx] Furosemide [Lasix] 40 mg PO BIDDIURETIC tablet 11/15/17 [Rx] LORazepam [Ativan ORAL Concentrate 1MG/0.5 ML U/D] 0.5 mg PO Q2H PRN cont 11/15 [Rx] LORazepam [Ativan] 0.5 mg PO Q2H PRN tablet 11/15/17 [Rx] Forms: ED Department Discharge Referrals: Fracisco Brownlee Sr, MD [Primary Care Provider] - - Discharge Summary/Plan Comment DC Time >30 min.: Yes Discharge Summary/Plan Comment: Assessment/plan: #1. Right heart failure, Moderate aortic insufficiency, severe mitral regurgitation, severe pulmonary hypertension Right ventricular systolic pressure 60-70EF 40-45%, Global hypokinesis of left ventricle/ Echocardiogram. She has refused aggressive treatment such as clipping of the mitral valve. I have spoken with the daughter who is in agreement. #2. HTN; Stable. 104/57 today. Heart rate 83 #3. S/P: MRSA infection back and arm. #4. COPD/emphysema; She has stopped smoking 3 PPD just over 6 months ago. Plan to discharge to the [facility] today. Will start Hospice care today. - General Info Date of Service: 11/15/17 Functional Status: Reports: Pain Controlled - Review of Systems General: Reports: Weakness HEENT: Reports: No Symptoms Pulmonary: Reports: Shortness of Breath, Cough, Sputum Cardiovascular: Reports: No Symptoms Gastrointestinal: Reports: No Symptoms Genitourinary: Reports: No Symptoms Musculoskeletal: Reports: No Symptoms Skin: Reports: No Symptoms Neurological: Reports: Difficulty Walking, Weakness, Gait Disturbance Psychiatric: Reports: No Symptoms - Patient Data Vitals - Most Recent: Last Vital Signs Temp 98.1 F 11/14/17 23:00 Pulse 80 11/15/17 07:29 Resp 18 11/14/17 23:00 BP 118/62 11/14/17 23:00 Pulse Ox 100 11/15/17 07:29 Weight - Most Recent: 143 lb 4.807 oz I&O - Last 24 hours: Intake & Output 11/14/17 11/15/17 11/15/17 22:59 06:59 14:59 Intake Total 480 Output Total 950 200 Balance -470 -200 Med Orders - Current: Current Medications Arformoterol Tartrate (Brovana) 15 mcg NEB BIDRT [facility] Last Admin: 11/15/17 07:28 Dose: 15 mcg Carvedilol (Coreg) 3.125 mg PO BID [facility] Last Admin: 11/14/17 21:23 Dose: 3.125 mg Doxycycline Hyclate (Vibramycin) 100 mg PO BID [facility] Last Admin: 11/14/17 21:23 Dose: 100 mg Furosemide (Lasix) 40 mg PO BIDDIURETIC [facility] Last Admin: 11/14/17 14:07 Dose: 40 mg Lorazepam (Ativan Oral Concentrate 1mg/0.5 Ml U/D) 0.5 mg PO Q2H PRN PRN Reason: Anxiety Lorazepam (Ativan) 0.5 mg PO Q2H PRN PRN Reason: ANXIETY Potassium Chloride (Klor-Con M20) 20 meq PO BIDMEALS [facility] Last Admin: 11/14/17 17:27 Dose: 20 meq Sodium Chloride (Saline Flush) 10 ml FLUSH ASDIRECTED PRN PRN Reason: Keep Vein Open Last Admin: 11/13/17 21:40 Dose: 10 ml Spironolactone (Aldactone) 25 mg PO DAILY [facility] Last Admin: 11/14/17 08:32 Dose: 25 mg Discontinued Medications Acetaminophen (Tylenol) 650 mg PO Q4H PRN PRN Reason: Pain Furosemide (Lasix) 40 mg IVPUSH ONETIME ONE Stop: 11/13/17 20:32 Last Admin: 11/13/17 20:53 Dose: 40 mg Gabapentin (Neurontin) 300 mg PO TID [facility] Last Admin: 11/14/17 08:32 Dose: 300 mg Lactobacillus Rhamnosus (Culturelle) 2 cap PO BID [facility] Last Admin: 11/14/17 08:32 Dose: 2 cap Loperamide HCl (Imodium) 2 mg PO DAILY PRN PRN Reason: Diarrhea Metronidazole (Metronidazole) 500 mg PO TIDMEALS [facility] Last Admin: 11/14/17 12:56 Dose: Not Given Nitroglycerin (Nitrostat) 0.4 mg SL ONETIME ONE Stop: 11/13/17 20:32 Last Admin: 11/13/17 20:53 Dose: 0.4 mg Ondansetron HCl (Zofran) 4 mg IVPUSH ONETIME ONE Stop: 11/13/17 21:01 Last Admin: 11/13/17 21:40 Dose: 4 mg - Exam General: Reports: Alert, Oriented HEENT: Reports: Pupils Equal, Pupils Reactive, EOMI, Mucous Membr. Moist/Blue Eye Neck: Reports: Supple Lungs: Reports: Clear to Auscultation, Normal Respiratory Effort Cardiovascular: Reports: Regular Rate, Regular Rhythm GI/Abdominal Exam: Normal Bowel Sounds, Soft Back Exam: Reports: Vertebral Tenderness Extremities: Other (numbness feet.) Skin: Reports: Warm, Dry, Intact Wound/Incisions: Reports: Healing Well Neurological: Reports: No New Focal Deficit Psy/Mental Status: Reports: Alert, Normal Affect, Normal Mood *Q Meaningful Use (DIS) - VTE *Q VTE Criteria *Q: - Stroke *Q Stroke Criteria *Q: - AMI *Q AMI Criteria *Q:
[2017-11-15] MEDS: Potassium Chloride 20 MEQ Tab.ER PO SCH ×2 (09:11→09:15)
[2017-11-15] MEDS: Furosemide 40 MG Tab PO SCH (09:11)
[2017-11-15] MEDS: Doxycycline 100 MG Cap PO SCH (09:12)
[2017-11-15] MEDS: Carvedilol 3.125 MG Tab PO SCH (09:12)
[2017-11-15] MEDS: Spironolactone 25 MG Tab PO SCH (09:12)
[2017-11-15 09:52] VITALS: BP 110/79
== END 2017-11-15 13:00 | disposition hospice, inpatient (51) | DRG 293 ==
LOC: JP.ED 20:06 → JP.MS 23:03
PROVIDERS: ADMIT Internal Medicine; ATTEND Internal Medicine
DX: I11.0 Hypertensive heart disease with heart failure (principal); I50.41 Acute combined systolic (congestive) and diastolic (congestive) heart failure; I27.29 Other secondary pulmonary hypertension; I25.10 Atherosclerotic heart disease of native coronary artery without angina pectoris; Z66 Do not resuscitate; Z87.891 Personal history of nicotine dependence; R06.02 Shortness of breath; R06.03 Acute respiratory distress; Z51.5 Encounter for palliative care; I35.1 Nonrheumatic aortic (valve) insufficiency; I34.0 Nonrheumatic mitral (valve) insufficiency; F41.9 Anxiety disorder, unspecified; Z86.14 Personal history of Methicillin resistant Staphylococcus aureus infection; Z98.1 Arthrodesis status; M54.9 Dorsalgia, unspecified; G89.29 Other chronic pain; Z99.81 Dependence on supplemental oxygen; G47.30 Sleep apnea, unspecified; Z95.5 Presence of coronary angioplasty implant and graft; Z95.0 Presence of cardiac pacemaker; I25.2 Old myocardial infarction; H54.7 Unspecified visual loss; Z88.5 Allergy status to narcotic agent; J44.9 Chronic obstructive pulmonary disease, unspecified
CPT/HCPCS: 36415; 80048; 84484; 85025; 93005; 96374; 96375; 99285; A9270; J1940; J2405; J7050; 94640; J7605